=== PATIENT | male | born 1945 | race Caucasian/White ===

== ENCOUNTER 2017-04-18 14:58 | Emergency (ER) | payer MEDICARE, BC ==
--- NOTE | 2017-04-18 15:44 | EDM.PDOC ---
ED HPI GENERAL MEDICAL PROBLEM - General Chief Complaint: Fever Stated Complaint: FEVER Time Seen by Provider: 04/18/17 15:37 Source of Information: Reports: Patient History Limitations: Reports: No Limitations - History of Present Illness INITIAL COMMENTS - FREE TEXT/NARRATIVE: PT UNDERWENT CHEMO 2 WEEKS AGO AND HAS BEEN FEELING VERY TIRED SINCE. TOOK TEMP TODAY AND THOUGHT IT WAS 101. CALLED ONCOLOGIST AND RECOMMENDED THEY PRESENT TO ER. DENIES CP, SOB, COUGH, N/V/D, OR MARTINEZ. PT WAS AFEBRILE UPON PRESENTATION AND NO ANTIPYRETIC MEDICATION WAS GIVEN AT HOME. Onset: Today Severity: Mild Improves with: Reports: None Worsens with: Reports: None Associated Symptoms: Reports: Diaphoresis, Malaise - Related Data Allergies Allergy/AdvReac Type Severity Reaction Status Date / Time cefazolin Allergy Rash Verified 04/18/17 15:21 Home Meds: Home Meds Aspirin 81 mg PO DAILY 04/18/17 [History] Enoxaparin [Lovenox] 40 mg SUBCUT DAILY 04/18/17 [History] Omeprazole 20 mg PO DAILY 04/18/17 [History] Ondansetron [Zofran Odt] 8 mg PO Q8H PRN 04/18/17 [History] Prochlorperazine Maleate [Compazine] 10 mg PO Q4H PRN 04/18/17 [History] Sennosides/Docusate Sodium [Senna-S] 1 tab PO BID PRN 04/18/17 [History] Simvastatin [Zocor] 20 mg PO DAILY 04/18/17 [History] Venlafaxine [Effexor XR] 150 mg PO DAILY 04/18/17 [History] predniSONE [Prednisone] 100 mg PO ASDIRECTED 04/18/17 [History] Past Medical History HEENT History: Reports: Impaired Vision Cardiovascular History: Reports: High Cholesterol Gastrointestinal History: Reports: None Endocrine/Metabolic History: Reports: Obesity/BMI 30+ Immunologic History: Reports: Immunosuppression Oncologic (Cancer) History: Reports: Non-Hodgkin's Lymphoma Other Oncologic History: mantle cell lymphoma - Past Surgical History HEENT Surgical History: Reports: None Cardiovascular Surgical History: Reports: None GI Surgical History: Reports: Appendectomy, Cholecystectomy Endocrine Surgical History: Reports: None Oncologic Surgical History: Reports: None Social & Family History - Tobacco Use Smoking Status *Q: Former Smoker Years of Tobacco use: 15 Packs/Tins Daily: 1 Used Tobacco, but Quit: Yes Month Tobacco Last Used: 10 - Recreational Drug Use Recreational Drug Use: No ED ROS GENERAL - Review of Systems Review Of Systems: ROS reveals no pertinent complaints other than HPI. Constitutional: Reports: Malaise, Diaphoresis HEENT: Reports: No Symptoms Respiratory: Reports: No Symptoms Cardiovascular: Reports: No Symptoms Endocrine: Reports: No Symptoms GI/Abdominal: Reports: No Symptoms : Reports: No Symptoms Musculoskeletal: Reports: No Symptoms Skin: Reports: No Symptoms Neurological: Reports: No Symptoms Psychiatric: Reports: No Symptoms Hematologic/Lymphatic: Reports: No Symptoms Immunologic: Reports: No Symptoms ED EXAM, GENERAL - Physical Exam Exam: See Below Exam Limited By: No Limitations General Appearance: Alert, WD/WN, No Apparent Distress Eye Exam: Bilateral Eye: Normal Inspection Nose: Normal Inspection, Normal Mucosa, No Blood Throat/Mouth: Normal Inspection, Normal Oropharynx, No Airway Compromise Head: Atraumatic, Normocephalic Neck: Normal Inspection, Supple Respiratory/Chest: No Respiratory Distress, Lungs Clear, Normal Breath Sounds, No Accessory Muscle Use, Chest Non-Tender Cardiovascular: Regular Rate, Rhythm, No Murmur GI/Abdominal: Normal Bowel Sounds, Soft, Non-Tender Back Exam: Normal Inspection. No: CVA Tenderness (L), CVA Tenderness (R) Extremities: Normal Inspection, No Pedal Edema Neurological: Alert, Oriented, Normal Cognition Psychiatric: Normal Affect Skin Exam: Warm, Dry, Intact, Normal Color, No Rash Lymphatic: Adenopathy (CERVICAL OF CHRONIC NATURE) Course - Vital Signs Last Recorded V/S: Last Vital Signs Temp 97.1 F 04/18/17 15:15 Pulse 103 H 04/18/17 15:15 Resp 20 04/18/17 15:15 BP 130/84 04/18/17 15:15 Pulse Ox 94 L 04/18/17 15:15 - Orders/Labs/Meds Orders: Active Orders 24 hr Category Date Time Status CBC WITH AUTO DIFF [HEME] Stat Lab 04/18/17 15:37 Ordered COMPREHENSIVE METABOLIC PN,CMP [CHEM] Stat Lab 04/18/17 15:37 Ordered INR,PT,PROTHROMBIN TIME [COAG] Stat Lab 04/18/17 15:37 Ordered PTT,PARTIAL THROMBOPLSTIN TIME [COAG] Stat Lab 04/18/17 15:37 Ordered UA W/MICROSCOPIC [URIN] Stat Lab 04/18/17 15:37 Uncollected - Re-Assessments/Exams Free Text/Narrative Re-Assessment/Exam: 04/18/17 16:42 PT AFEBRILE, NONTOXIC APPEARING, VSS, FEELS BETTER, AT BEDSIDE. WILL HAVE HIM F/U WITH DR DOW IN 2-3 DAYS Departure - Departure Time of Disposition: 16:43 Disposition: Home, Self-Care 01 Condition: Good Clinical Impression: Hyperglycemia, Weakness generalized - Discharge Information Instructions: Weakness, [id number], Hyperglycemia, [id number], Fever, Adult , [id number] Referrals: Renzo Golden MD [Primary Care Provider] - Kristine Mike MD [Physician] - Forms: ED Department Discharge Additional Instructions: FOLLOW UP WITH DR DOW IN 2-3 DAYS. RETURN TO ER SOONER IF SYMPTOMS CONTINUE - My Orders Last 24 Hours: My Active Orders 04/18/17 15:37 CBC WITH AUTO DIFF [HEME] Stat COMPREHENSIVE METABOLIC PN,CMP [CHEM] Stat INR,PT,PROTHROMBIN TIME [COAG] Stat PTT,PARTIAL THROMBOPLSTIN TIME [COAG] Stat UA W/MICROSCOPIC [URIN] Stat - Assessment/Plan Last 24 Hours: My Active Orders 04/18/17 15:37 CBC WITH AUTO DIFF [HEME] Stat COMPREHENSIVE METABOLIC PN,CMP [CHEM] Stat INR,PT,PROTHROMBIN TIME [COAG] Stat PTT,PARTIAL THROMBOPLSTIN TIME [COAG] Stat UA W/MICROSCOPIC [URIN] Stat Assessment:: WEAKNESS Plan: F/U WITH DR DOW IN 2-3 DAYS
[2017-04-18 16:08] VITALS: BP 118/78
[2017-04-18 16:27] LABS: CHLORIDE,CL 102 mmol/L (98-115); SODIUM,NA 136 mmol/L (136-145)
== END 2017-04-18 16:40 | disposition home or self-care (01) ==
LOC: KA.ED 14:58
DX: R73.9 Hyperglycemia, unspecified (principal); R53.1 Weakness; Z79.899 Other long term (current) drug therapy; H54.7 Unspecified visual loss; E78.00 Pure hypercholesterolemia, unspecified; E66.9 Obesity, unspecified; Z88.8 Allergy status to other drugs, medicaments and biological substances; Z90.49 Acquired absence of other specified parts of digestive tract; Z87.891 Personal history of nicotine dependence
CPT/HCPCS: 36415; 80053; 81001; 85025; 85610; 85730; 99282; 99284

== ENCOUNTER 2017-05-14 03:26 | Inpatient (IN) | payer MEDICARE, BC ==
[2017-05-14] MEDS ORDERED: Acetaminophen 500 MG Tab PO ONE (03:29)
[2017-05-14] MEDS: Acetaminophen 500 MG Tab ONE ×2 (03:30→06:50)
--- NOTE | 2017-05-14 04:12 | EDM.PDOC ---
Addendum entered and electronically signed by Lauro Castellanos PA 05/14/17 06:32 : Please use ER note as admission H and P Original Note: ED HPI GENERAL MEDICAL PROBLEM - General Chief Complaint: Fever Stated Complaint: fever Time Seen by Provider: 05/14/17 03:45 Source of Information: Reports: Patient History Limitations: Reports: No Limitations - History of Present Illness INITIAL COMMENTS - FREE TEXT/NARRATIVE: 72 YO WM with PMH of nonhodgkins lymphoma on chemotherapy presents to ER with fever/chills which began this am. Pt reports he had his chemotherapy 1 week ago and had tolerated it well. Pt denies any productive cough, denies shortness of breath or chest pain, denies abdominal pain or dysuria or urinary frequency. Onset: Today Onset Date: 05/14/17 Onset Time: 02:00 Location: Reports: Generalized Severity: Mild Improves with: Reports: None Worsens with: Reports: None Context: Denies: Sick Contact Associated Symptoms: Reports: Fever/Chills, Malaise. Denies: Chest Pain, Cough , cough w sputum, Diaphoresis, Nausea/Vomiting, Rash, Seizure, Shortness of Breath, Syncope, Weakness - Related Data Allergies Allergy/AdvReac Type Severity Reaction Status Date / Time cefazolin Allergy Rash Verified 05/14/17 04:34 bednamustine Allergy Rash Uncoded 05/14/17 04:34 Home Meds: Home Meds Aspirin 81 mg PO DAILY 04/18/17 [History] Enoxaparin [Lovenox] 40 mg SUBCUT DAILY 04/18/17 [History] Omeprazole 20 mg PO DAILY 04/18/17 [History] Ondansetron [Zofran Odt] 8 mg PO Q8H PRN 04/18/17 [History] Prochlorperazine Maleate [Compazine] 10 mg PO Q4H PRN 04/18/17 [History] Sennosides/Docusate Sodium [Senna-S] 1 tab PO BID PRN 04/18/17 [History] Simvastatin [Zocor] 20 mg PO DAILY 04/18/17 [History] Venlafaxine [Effexor XR] 150 mg PO DAILY 04/18/17 [History] predniSONE [Prednisone] 100 mg PO ASDIRECTED 04/18/17 [History] Past Medical History HEENT History: Reports: Impaired Vision Cardiovascular History: Reports: High Cholesterol Gastrointestinal History: Reports: None Endocrine/Metabolic History: Reports: Obesity/BMI 30+ Immunologic History: Reports: Immunosuppression Oncologic (Cancer) History: Reports: Non-Hodgkin's Lymphoma Other Oncologic History: mantle cell lymphoma - Past Surgical History HEENT Surgical History: Reports: None Cardiovascular Surgical History: Reports: None GI Surgical History: Reports: Appendectomy, Cholecystectomy Endocrine Surgical History: Reports: None Oncologic Surgical History: Reports: None Social & Family History - Tobacco Use Smoking Status *Q: Former Smoker Years of Tobacco use: 15 Packs/Tins Daily: 1 Used Tobacco, but Quit: Yes Month Tobacco Last Used: 10 - Caffeine Use Caffeine Use: Reports: Soda Other Caffeine Use: diet and regular - Recreational Drug Use Recreational Drug Use: No ED ROS GENERAL - Review of Systems Review Of Systems: See Below Constitutional: Reports: Fever, Chills HEENT: Reports: No Symptoms Respiratory: Reports: No Symptoms Cardiovascular: Reports: No Symptoms Endocrine: Reports: No Symptoms GI/Abdominal: Reports: No Symptoms : Reports: No Symptoms Musculoskeletal: Reports: No Symptoms Skin: Reports: No Symptoms Neurological: Reports: No Symptoms Psychiatric: Reports: No Symptoms Hematologic/Lymphatic: Reports: No Symptoms Immunologic: Reports: No Symptoms ED EXAM, SEPSIS - Physical Exam Exam: See Below Exam Limited By: No Limitations General Appearance: Alert, WD/WN, No Apparent Distress Ears: Normal External Exam, Normal Canal, Hearing Grossly Normal, Normal TMs Nose: Normal Inspection, Normal Mucosa, No Blood Throat/Mouth: Normal Inspection, Normal Lips, Normal Teeth, Normal Gums, Normal Oropharynx, Normal Voice, No Airway Compromise Head: Atraumatic, Normocephalic Neck: Normal Inspection, Supple, Non-Tender, Full Range of Motion Respiratory/Chest: No Respiratory Distress, Lungs Clear, Normal Breath Sounds, No Accessory Muscle Use, Chest Non-Tender Cardiovascular: Normal Peripheral Pulses, Regular Rate, Rhythm, No Edema, No Gallop, No JVD, No Murmur, No Rub GI/Abdominal Exam: Normal Bowel Sounds, Soft, Non-Tender, No Organomegaly, No Distention, No Abnormal Bruit, No Mass, Pelvis Stable Back: Normal Inspection, Full Range of Motion, NT Extremities: Normal Inspection, Normal Range of Motion, Non-Tender, No Pedal Edema, Normal Capillary Refill Neurological: Alert, Oriented, CN II-XII Intact, Normal Cognition, Normal Gait, Normal Reflexes, No Motor/Sensory Deficits Psychiatric: Normal Affect, Normal Mood Skin: Warm, Dry, Intact, Normal Color, No Rash Lymphatic: Bilateral: No Adenopathy Course - Vital Signs Last Recorded V/S: Last Vital Signs Temp 39.3 C H 05/14/17 04:09 Pulse 104 H 05/14/17 04:09 Resp 20 05/14/17 04:09 BP 149/80 H 05/14/17 04:09 Pulse Ox 99 05/14/17 04:09 - Orders/Labs/Meds Orders: Active Orders 24 hr Category Date Time Status Chest 2V [CR] Stat Exams 05/14/17 Ordered CULTURE BLOOD [BC] Stat Lab 05/14/17 04:01 Ordered CULTURE BLOOD [BC] Stat Lab 05/14/17 04:01 Ordered CULTURE URINE [RM] Stat Lab 05/14/17 04:00 Uncollected LACTIC ACID [CHEM] Stat Lab 05/14/17 04:46 Ordered Piperacillin/Tazobactam [Zosyn] 4.5 gm Med 05/14/17 05:00 Ordered Sodium Chloride 0.9% [Normal Saline] 100 ml IV Q6H Sodium Chloride 0.9% @ 999 MLS/HR (1000ml) Med 05/14/17 05:00 Ordered Sodium Chloride 0.9% [Normal Saline] 1,000 ml IV .BOLUS Vancomycin 1 gm Med 05/14/17 05:00 Ordered Sodium Chloride 0.9% [Normal Saline] 250 ml IV Q24H Blood Culture x2 Reflex Set [OM.PC] Stat Oth 05/14/17 04:00 Ordered Medication Orders Piperacillin Sod/Tazobactam (Sod 4.5 gm/ Sodium Chloride) 100 mls @ 200 mls/hr IV Q6H GIFTY Sodium Chloride (Normal Saline) 1,000 mls @ 999 mls/hr IV .BOLUS ONE Stop: 05/14/17 06:00 Vancomycin HCl 1 gm/ Sodium (Chloride) 250 mls @ 167 mls/hr IV Q24H GIFTY Labs: Laboratory Tests 05/14/17 05/14/17 05/14/17 Range/Units 03:45 03:45 04:15 WBC 1.1 L* (5.0-10.0) 10^3/uL RBC 3.14 L (4.50-6.00) 10^6/uL Hgb 10.1 L (13.0-17.0) g/dL Hct 29.6 L (40.0-52.0) % MCV 94.5 H (82.0-92.0) fL MCH 32.3 H (27.0-31.0) pg MCHC 34.2 (32.0-36.0) g/dL RDW 14.3 (11.5-14.5) % Plt Count 86 L (150-300) 10^3/uL MPV 8.4 (7.4-10.4) fL Neut % (Auto) 18.8 L (50.0-70.0) % Lymph % (Auto) 55.1 H (20.0-40.0) % [place] % (Auto) 8.1 H (2.0-8.0) % Eos % (Auto) 16.1 H (1.0-3.0) % Baso % (Auto) 1.9 H (0.0-1.0) % Neut # (Auto) 0.2 L (2.5-7.0) 10^3/uL Lymph # (Auto) 0.6 L (1.0-4.0) 10^3/uL [place] # (Auto) 0.1 (0.1-0.8) 10^3/uL Eos # (Auto) 0.2 (0.1-0.3) 10^3/uL Baso # (Auto) 0.0 (0.0-0.1) 10^3/uL Sodium 137 (136-145) mmol/L Potassium 3.5 (3.3-5.3) mmol/L Chloride 101 (98-115) mmol/L Carbon Dioxide 29.4 (21.0-32.0) mmol/L BUN 13 (6-25) mg/dL Creatinine 0.81 (0.51-1.17) mg/dL Est Cr Clr Drug Dosing 87.62 mL/min Estimated GFR (MDRD) > 60 mL/min Glucose 98 (70-110) mg/dL Calcium 8.1 L (8.7-10.3) mg/dL Total Bilirubin 1.1 H (0.2-1.0) mg/dL AST 18 (15-37) U/L ALT 41 (12-78) U/L Alkaline Phosphatase 98 (46-116) IU/L Total Protein 6.0 L (6.4-8.2) g/dL Albumin 3.06 (3.00-4.80) g/dL Lipase 86 (73-393) U/L Specimen Type Urincc Urine Color Yellow (YELLOW) Urine Appearance Clear (CLEAR) Urine pH 6.0 (5.0-9.0) Ur Specific [place] 1.015 (1.005-1.030) Urine Protein Negative (NEGATIVE) mg/dL Urine Glucose (UA) Negative (NEGATIVE) mg/dL Urine Ketones Negative (NEGATIVE) mg/dL Urine Occult Blood Negative (NEGATIVE) Urine Nitrite Negative (NEGATIVE) Urine Bilirubin Negative (NEGATIVE) Urine Urobilinogen 0.2 (0.2-1.0) E.U./dL Ur Leukocyte Esterase Negative (NEGATIVE) Urine RBC Not seen /HPF Urine WBC 0-5 /HPF Ur Epithelial Cells Rare /LPF Urine Bacteria Not seen (NONE TO FEW) /HPF Meds: Medications Generic Name Dose Route Start Last Admin Trade Name Freq PRN Reason Stop Dose Admin Piperacillin Sod/Tazobactam 100 mls @ 200 mls/hr 05/14/17 05:00 Sod 4.5 gm/ Sodium Chloride IV Q6H GIFTY Sodium Chloride 1,000 mls @ 999 mls/hr 05/14/17 05:00 Normal Saline IV 05/14/17 06:00 .BOLUS ONE Vancomycin HCl 1 gm/ Sodium 250 mls @ 167 mls/hr 05/14/17 05:00 Chloride IV Q24H GIFTY Discontinued Medications Generic Name Dose Route Start Last Admin Trade Name Freq PRN Reason Stop Dose Admin Acetaminophen Confirm 05/14/17 03:29 Tylenol Extra Strength Administered 05/14/17 03:30 Dose 1,000 mg .ROUTE .STK-MED ONE Ibuprofen 600 mg 05/14/17 05:01 Motrin PO 05/14/17 05:02 ONETIME ONE - Radiology Interpretation Free Text/Narrative:: CXR- NAD Departure - Departure Time of Disposition: 05:04 Disposition: Admitted As Inpatient 68 Condition: Fair Clinical Impression: Fever Qualifiers: Fever type: unspecified Qualified Code(s): R50.9 - Fever, unspecified Neutropenia Qualifiers: Neutropenia type: unspecified Qualified Code(s): D70.9 - Neutropenia, unspecified Lymphoma Qualifiers: Lymphoma type: non-Hodgkin - Discharge Information Forms: ED Department Discharge - My Orders Last 24 Hours: My Active Orders 05/14/17 Chest 2V [CR] Stat 05/14/17 04:00 CULTURE URINE [RM] Stat Blood Culture x2 Reflex Set [OM.PC] Stat 05/14/17 04:01 CULTURE BLOOD [BC] Stat CULTURE BLOOD [BC] Stat 05/14/17 04:46 LACTIC ACID [CHEM] Stat 05/14/17 05:00 Piperacillin/Tazobactam [Zosyn] 4.5 gm Sodium Chloride 0.9% [Normal Saline] 100 ml IV Q6H Sodium Chloride 0.9% @ 999 MLS/HR (1000ml) Sodium Chloride 0.9% [Normal Saline] 1,000 ml IV .BOLUS Vancomycin 1 gm Sodium Chloride 0.9% [Normal Saline] 250 ml IV Q24H - Assessment/Plan Last 24 Hours: My Active Orders 05/14/17 Chest 2V [CR] Stat 05/14/17 04:00 CULTURE URINE [RM] Stat Blood Culture x2 Reflex Set [OM.PC] Stat 05/14/17 04:01 CULTURE BLOOD [BC] Stat CULTURE BLOOD [BC] Stat 05/14/17 04:46 LACTIC ACID [CHEM] Stat 05/14/17 05:00 Piperacillin/Tazobactam [Zosyn] 4.5 gm Sodium Chloride 0.9% [Normal Saline] 100 ml IV Q6H Sodium Chloride 0.9% @ 999 MLS/HR (1000ml) Sodium Chloride 0.9% [Normal Saline] 1,000 ml IV .BOLUS Vancomycin 1 gm Sodium Chloride 0.9% [Normal Saline] 250 ml IV Q24H Assessment:: 1. nonhodgkins lymphoma 2. fever 3. neutropenia Plan: 1. admit to medicine- Kristine Rajan 2. zosyn/vanco 3. tylenol for fever 4. supportive care
[2017-05-14 04:47] LABS: CHLORIDE,CL 101 mmol/L (98-115); SODIUM,NA 137 mmol/L (136-145)
[2017-05-14] MEDS ORDERED: Piperacillin/Tazobactam 4.5 GM in Sodium Chloride 0.9% 100 ML IV SCH ×2 (05:00→09:00)
[2017-05-14] MEDS ORDERED: Sodium Chloride 0.9% 1,000 ML IV ONE (05:00)
[2017-05-14] MEDS ORDERED: Ibuprofen 600 MG Tab PO ONE (05:01)
[2017-05-14] MEDS ORDERED: Sodium Chloride 0.9% 1,000 ML ONE (05:02)
[2017-05-14] MEDS ORDERED: Sodium Chloride 0.9% 5 ML Syringe FLUSH PRN (05:07)
[2017-05-14] MEDS ORDERED: Acetaminophen 325 MG Tab PO PRN (05:07)
[2017-05-14] MEDS ORDERED: Ibuprofen 200 MG Tab ONE (05:07)
[2017-05-14] MEDS ORDERED: Sodium Chloride 0.9% 1,000 ML IV SCH (05:15)
[2017-05-14] MEDS: Sodium Chloride 0.9% 1,000 ML IV SCH ×2 (05:30→20:09)
[2017-05-14] MEDS ORDERED: Prochlorperazine 5 MG Tab PO PRN (09:53)
[2017-05-14] MEDS ORDERED: Ondansetron 4 MG Tab.DIS PO PRN (09:53)
[2017-05-14] MEDS ORDERED: oxyCODONE 5 MG Tab PO PRN (10:30)
[2017-05-14] MEDS ORDERED: Enoxaparin 40 MG/0.4 ML Syringe SUBCUT SCH (10:30)
[2017-05-14] MEDS: Aspirin 81 MG Tab.EC PO SCH (10:52)
[2017-05-14] MEDS: Cetirizine 10 MG Tab PO SCH (10:53)
[2017-05-14] MEDS: Venlafaxine 150 MG Cap.ER PO SCH (10:53)
[2017-05-14] MEDS: Omeprazole 20 MG Cap.CR PO SCH (10:53)
[2017-05-14] MEDS: [UNRECOGNIZED DRUG - OTHER] PO SCH ×4 (10:54→21:06)
[2017-05-14] MEDS ORDERED: Vancomycin 0.5 GM in Sodium Chloride 0.9% 100 ML IV ONE (11:00)
[2017-05-14] MEDS: predniSONE 20 MG Tab PO SCH (12:06)
--- NOTE | 2017-05-14 13:09 | PN ---
05/14/2017 PATIENT NAME: PATRIZIASURYA This is a 72-year-old male, who came into the emergency room very early this morning after developing a fever around midnight last night. He has a history of non-Hodgkin lymphoma and received chemotherapy approximately one week ago. He received his chemotherapy at the [facility]. He had a phone call from [place] yesterday saying that his white count was 4.4. He developed chills and a fever of 102.3. The chemo cycle he received was Rituxan, cyclophosphamide, and doxorubicin. He was also given Neulasta. He was instructed to go to the emergency room if he developed a neutropenic fever. He was found to have a white count of 1.1. Neutropenic workup was performed including blood cultures x2, urine culture, as well as a chest x-ray. Chest x-ray shows no acute process. He is on vancomycin as well as Zosyn. He received a loading dose of 4.5 g of Zosyn, and this has been changed to 3.375. I spoke with [facility]. The patient is cared for by Dr. Pope. I spoke with his physician employee relations assistant. I notified her of the patient's admission and a discussion was held regarding suggestions for care. She did not recommend any further Neulasta. She recommended the patient stay in the hospital until he was afebrile 48 hours. She agreed with the Zosyn and vancomycin. I encouraged her to call back if she had any recommendations for further treatment. In addition to the white count being 1.1, RBCs were 3.14, hemoglobin 10.1, hematocrit 29.6, platelet count was 86,000. Chemistry profile showed a sodium of 137, potassium 3.5, chloride 101, BUN and creatinine are 13 and 0.81 with a GFR greater than 60. Calcium, total protein, and albumin were low. UA was negative. PHYSICAL EXAMINATION: VITAL SIGNS: Temperature was 98.7, pulse 72, respirations 20, blood pressure 106/53, and O2 saturation is 96% on room air. SKIN: Warm and dry to touch. CARDIAC: Reveals S1, S2 to be normal. Rate and rhythm are regular. No murmur, click, or gallop is auscultated. LUNGS: Clear without rales, wheezes, or rhonchi. 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 ABDOMEN: Soft, obese, nontender. Bowel sounds present in all four quadrants. There is no pedal edema. IMPRESSION: Neutropenic fever in a patient with non-Hodgkin lymphoma, status post chemotherapy one week ago. Agents outlined in the beginning of the note. He will continue on vancomycin as well as the Zosyn. The Zosyn dose was adjusted. It was originally ordered at 4.5 g every six hours, this was changed to 3.375 g every six hours. Vancomycin will be dosed by Pharmacy. He will be kept in the hospital until he is afebrile for 48 hours. I have spoken via telephone with the physician employee relations assistant who works with the patient's oncologist, Dr. Pope. She agreed with the plan of care and had no further suggestions. Full neutropenic workup has been performed including blood cultures x2, urine culture, as well as chest x-ray. CBC and basic metabolic panel will be drawn for morning. I have discussed my findings with Dr. Kristine Mike, who concurs with my findings. /[id number]/[id number]
[2017-05-14] MEDS: Piperacillin/Tazobactam/Dext 50 ML IV SCH ×2 (14:29→22:47)
[2017-05-14] MEDS ORDERED: diphenhydrAMINE 25 MG Cap PO PRN (21:00)
[2017-05-14] MEDS: Simvastatin 10 MG Tab PO SCH (21:05)
[2017-05-14] MEDS: Enoxaparin 40 MG/0.4 ML Syringe SUBCUT SCH (21:06)
[2017-05-15] MEDS: Piperacillin/Tazobactam/Dext 50 ML IV SCH ×4 (03:15→23:21)
[2017-05-15] MEDS: Omeprazole 20 MG Cap.CR PO SCH (06:12)
[2017-05-15 08:13] LABS: CHLORIDE,CL 106 mmol/L (98-115); SODIUM,NA 141 mmol/L (136-145)
--- NOTE | 2017-05-15 09:04 | PCM.PN ---
- General Info Date of Service: 05/15/17 Admission Dx/Problem (Free Text): Fever with chemotherapy induced neutropenia. - Review of Systems Systems Review Comment:: Jadiel is seen today on inpatient rounds. He states he is feeling better than yesterday but still feeling pretty weak. 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 Tomorrow at 9AM he will be fever free for 48 hours. Blood and urine cultures are still pending. He has not had a fever in 24 hours. He is on vancomycin and zosyn. No diarrhea. No other ill symptoms. He did receive Neulasta. WBC and ANC are unchanged from yesterday at 1.1 and 0.2 respectively. - Patient Data Vitals - most recent: Last Vital Signs Temp 98.8 F 05/15/17 06:37 Pulse 68 05/15/17 06:37 Resp 20 05/15/17 06:37 BP 119/72 05/15/17 06:37 Pulse Ox 97 05/15/17 06:37 Weight - most recent: 288 lb 2 oz I&O - last 24 hours: Intake & Output 05/14/17 05/15/17 05/15/17 22:59 06:59 14:59 Intake Total 1546 372 Output Total 525 1400 Balance 1021 -1028 Lab Results last 24 hrs: Laboratory Results - last 24 hr 05/15/17 05/15/17 Range/Units 07:18 07:18 WBC 1.1 L* (5.0-10.0) 10^3/uL RBC 3.11 L (4.50-6.00) 10^6/uL Hgb 9.9 L (13.0-17.0) g/dL Hct 29.5 L (40.0-52.0) % MCV 94.7 H (82.0-92.0) fL MCH 31.8 H (27.0-31.0) pg MCHC 33.6 (32.0-36.0) g/dL RDW 14.3 (11.5-14.5) % Plt Count 75 L (150-300) 10^3/uL MPV 8.3 (7.4-10.4) fL Neut % (Auto) 21.1 L (50.0-70.0) % Lymph % (Auto) 46.5 H (20.0-40.0) % [place] % (Auto) 16.6 H (2.0-8.0) % Eos % (Auto) 14.2 H (1.0-3.0) % Baso % (Auto) 1.6 H (0.0-1.0) % Neut # (Auto) 0.2 L (2.5-7.0) 10^3/uL Lymph # (Auto) 0.5 L (1.0-4.0) 10^3/uL [place] # (Auto) 0.2 (0.1-0.8) 10^3/uL Eos # (Auto) 0.2 (0.1-0.3) 10^3/uL Baso # (Auto) 0.0 (0.0-0.1) 10^3/uL Sodium 141 (136-145) mmol/L Potassium 3.5 (3.3-5.3) mmol/L Chloride 106 (98-115) mmol/L Carbon Dioxide 30.3 (21.0-32.0) mmol/L BUN 10 (6-25) mg/dL Creatinine 0.82 (0.51-1.17) mg/dL Est Cr Clr Drug Dosing 86.55 mL/min Estimated GFR (MDRD) > 60 mL/min Glucose 105 (70-110) mg/dL Calcium 8.2 L (8.7-10.3) mg/dL Med Orders - Current: Current Medications Acetaminophen (Tylenol) 650 mg PO Q4H PRN PRN Reason: Pain (Mild 1-3)/fever Aspirin (Halfprin) 81 mg PO BRK [facility] Last Admin: 05/14/17 10:52 Dose: 81 mg Cetirizine HCl (Zyrtec) 10 mg PO DAILY [facility] Last Admin: 05/14/17 10:53 Dose: 10 mg Diphenhydramine HCl (Benadryl) 50 mg PO BEDTIME PRN PRN Reason: Sleep Enoxaparin Sodium (Lovenox) 40 mg SUBCUT BEDTIME [facility] Last Admin: 05/14/17 21:06 Dose: 40 mg Piperacillin/Tazobactam/Dextrose (Zosyn In Dextrose Iso-Osmotic 3.375 Gm) 50 mls @ 100 mls/hr IV Q6H [facility] Last Admin: 05/15/17 03:15 Dose: 100 mls/hr Vancomycin HCl 1.5 gm/ Sodium (Chloride) 280 mls @ 112 mls/hr IV Q12H [facility] Last Admin: 05/15/17 07:40 Dose: 112 mls/hr Sodium Chloride (Normal Saline) 1,000 mls @ 30 mls/hr IV DAILY@1999 [facility] Last Admin: 05/14/17 20:09 Dose: 30 mls/hr Omeprazole (Omeprazole) 20 mg PO ACBREAKFAST [facility] Last Admin: 05/15/17 06:12 Dose: 20 mg Ondansetron HCl (Zofran Odt) 8 mg PO TID PRN PRN Reason: nausea and vomiting Oxycodone HCl (Oxycodone) 10 mg PO Q4H PRN PRN Reason: Pain Ptom Stomatitis (Mouthwash) 1 each PO QID [facility] Last Admin: 05/14/17 21:06 Dose: 1 each Prednisone (Prednisone) 30 mg PO WITHBREAKFAST [facility] Stop: 05/18/17 12:01 Last Admin: 05/14/17 12:06 Dose: 30 mg Prednisone (Prednisone) 20 mg PO WITHBREAKFAST [facility] Prochlorperazine Maleate (Compazine) 10 mg PO Q6H PRN PRN Reason: Nausea Senna/Docusate Sodium (Senna Plus) 1 tab PO DAILY [facility] Last Admin: 05/14/17 10:52 Dose: 1 tab Simvastatin (Zocor) 10 mg PO BEDTIME [facility] Last Admin: 05/14/17 21:05 Dose: 10 mg Sodium Chloride (Syrex Flush) 5 ml FLUSH Q8HR PRN PRN Reason: Keep Vein Open Vancomycin HCl (Pharmacy To Dose - Vancomycin) 1 dose .XX ASDIRECTED [facility] Venlafaxine HCl (Effexor Xr) 150 mg PO DAILY [facility] Last Admin: 05/14/17 10:53 Dose: 150 mg Zolpidem Tartrate (Ambien) 10 mg PO BEDTIME PRN PRN Reason: Sleep Discontinued Medications Acetaminophen (Tylenol Extra Strength) Confirm Administered Dose 1,000 mg .ROUTE .STK-MED ONE Stop: 05/14/17 03:30 Last Admin: 05/14/17 06:50 Dose: Not Given Enoxaparin Sodium (Lovenox) 40 mg SUBCUT DAILY [facility] Last Admin: 05/14/17 10:55 Dose: Not Given Piperacillin Sod/Tazobactam (Sod 4.5 gm/ Sodium Chloride) 100 mls @ 200 mls/hr IV Q6H [facility] Last Admin: 05/14/17 09:09 Dose: Not Given Sodium Chloride (Normal Saline) 1,000 mls @ 999 mls/hr IV .BOLUS ONE Stop: 05/14/17 06:00 Last Admin: 05/14/17 05:00 Dose: 999 mls/hr Vancomycin HCl 1 gm/ Sodium (Chloride) 250 mls @ 167 mls/hr IV Q24H [facility] Last Admin: 05/14/17 06:03 Dose: 167 mls/hr Sodium Chloride (Normal Saline) Confirm Administered Dose 1,000 mls @ as directed .ROUTE .STK-MED ONE Stop: 05/14/17 05:03 Last Admin: 05/14/17 05:52 Dose: Not Given Sodium Chloride (Normal Saline) 1,000 mls @ 999 mls/hr IV .BOLUS [facility] Vancomycin HCl 1 gm/ Sodium (Chloride) 250 mls @ 167 mls/hr IV Q24H [facility] Last Admin: 05/14/17 06:34 Dose: Not Given Piperacillin Sod/Tazobactam (Sod 4.5 gm/ Sodium Chloride) 100 mls @ 200 mls/hr IV Q6H [facility] Last Admin: 05/14/17 09:07 Dose: 200 mls/hr Vancomycin HCl 0.5 gm/ Sodium (Chloride) 110 mls @ 110 mls/hr IV ONETIME ONE Stop: 05/14/17 11:59 Last Admin: 05/14/17 12:03 Dose: 110 mls/hr Ibuprofen (Motrin) 600 mg PO ONETIME ONE Stop: 05/14/17 05:02 Last Admin: 05/14/17 05:00 Dose: 600 mg Ibuprofen (Motrin) Confirm Administered Dose 600 mg .ROUTE .STK-MED ONE Stop: 05/14/17 05:08 Last Admin: 05/14/17 05:52 Dose: Not Given - Exam General: alert, oriented, cooperative, no acute distress Lungs: Clear to Auscultation (He did have crackles at the left lung base that cleared after I had him cough.), Normal Respiratory Effort Cardiovascular: Regular Rate, Regular Rhythm, No Murmurs GI/Abdominal Exam: Normal Bowel Sounds Extremities: Normal Inspection, No Pedal Edema - Problem List & Annotations (1) Fever SNOMED Code(s): 151040526 Code(s): R50.9 - FEVER, UNSPECIFIED Status: Acute Current Visit: Yes Qualifiers: Fever type: unspecified Qualified Code(s): R50.9 - Fever, unspecified (2) Lymphoma SNOMED Code(s): 616414028 Code(s): C85.90 - NON-HODGKIN LYMPHOMA, UNSPECIFIED, UNSPECIFIED SITE Status: Acute Current Visit: Yes Qualifiers: Lymphoma type: non-Hodgkin (3) Neutropenia SNOMED Code(s): 912741714 Code(s): D70.9 - NEUTROPENIA, UNSPECIFIED Status: Acute Current Visit: Yes Qualifiers: Neutropenia type: unspecified Qualified Code(s): D70.9 - Neutropenia, unspecified - Problem List Review Problem List Initiated/Reviewed/Updated: Yes - My Orders Last 24 Hours: My Active Orders 05/16/17 05:11 BMP [BASIC METABOLIC PANEL,BMP] [CHEM] AM CBC WITH AUTO DIFF [HEME] AM 05/17/17 05:11 BMP [BASIC METABOLIC PANEL,BMP] [CHEM] AM CBC WITH AUTO DIFF [HEME] AM 05/18/17 05:11 BMP [BASIC METABOLIC PANEL,BMP] [CHEM] AM CBC WITH AUTO DIFF [HEME] AM 05/19/17 05:11 BMP [BASIC METABOLIC PANEL,BMP] [CHEM] AM CBC WITH AUTO DIFF [HEME] AM 05/20/17 05:11 BMP [BASIC METABOLIC PANEL,BMP] [CHEM] AM CBC WITH AUTO DIFF [HEME] AM - Plan Plan:: Per oncology, needs to be fever free for 48 hours prior to discharge. I would also like to see his ANC and neutrophil count improving before sending him home. I will also need to have culture results available prior to sending him home. He is very anxious to be discharged. No change in his plan of care for today.
[2017-05-15] MEDS: Aspirin 81 MG Tab.EC PO SCH (09:08)
[2017-05-15] MEDS: predniSONE 20 MG Tab PO SCH (09:09)
[2017-05-15] MEDS: Venlafaxine 150 MG Cap.ER PO SCH (09:09)
[2017-05-15] MEDS: Cetirizine 10 MG Tab PO SCH (09:10)
[2017-05-15] MEDS: [UNRECOGNIZED DRUG - OTHER] PO SCH ×4 (09:20→21:04)
[2017-05-15] MEDS: Enoxaparin 40 MG/0.4 ML Syringe SUBCUT SCH (21:01)
[2017-05-15] MEDS: Simvastatin 10 MG Tab PO SCH (21:11)
[2017-05-15] MEDS: Zolpidem 5 MG Tab PO PRN (21:11)
[2017-05-15] MEDS: Sodium Chloride 0.9% 1,000 ML IV SCH (22:27)
[2017-05-16] MEDS: Piperacillin/Tazobactam/Dext 50 ML IV SCH ×2 (03:55→10:56)
[2017-05-16] MEDS: Omeprazole 20 MG Cap.CR PO SCH (06:13)
[2017-05-16 07:57] LABS: CHLORIDE,CL 105 mmol/L (98-115); SODIUM,NA 140 mmol/L (136-145)
[2017-05-16] MEDS: predniSONE 20 MG Tab PO SCH (09:35)
[2017-05-16] MEDS: Aspirin 81 MG Tab.EC PO SCH (09:35)
[2017-05-16] MEDS: Venlafaxine 150 MG Cap.ER PO SCH (09:36)
[2017-05-16] MEDS: Levofloxacin 500 MG Tab PO SCH (09:36)
[2017-05-16] MEDS: Cetirizine 10 MG Tab PO SCH (09:37)
[2017-05-16] MEDS: [UNRECOGNIZED DRUG - OTHER] PO SCH ×4 (09:42→20:56)
--- NOTE | 2017-05-16 09:52 | PCM.PN ---
- General Info Date of Service: 05/16/17 Admission Dx/Problem (Free Text): Fever with chemotherapy induced neutropenia. - Review of Systems Systems Review Comment:: Jadiel is seen today on inpatient rounds. He was admitted on 05/14/17 with chemotherapy induced neutropenia with fever. He was started on vancomycin and zosyn, today is day 3 of antibiotics. He is feeling better. WBC improved this morning. He is ready to go home but his oncologist wants him to stay. He has no pain, is moving his bowels and urine OK without diarrhea. No cough, no fevers since admission. Appetite is OK. Yesterday he noted a "lump" in his right groin that was almost black in color on the top. I did see this, looked almost like a small blood blister that was flat and had some induration around it. The area was punctured with an 18 gauge needle and culture taken. No purulent material was aspirated, only blood was found. Culture result pending. Blood cultures negative to date. I spoke to his oncologist at [place] yesterday and he recommended discontinuing vancomycin and zosyn after this mornings dose, starting levofloxacin 750 mg PO daily and keeping him in the hospital through the weekend until his counts start improving. - Patient Data Vitals - most recent: Last Vital Signs Temp 98.0 F 05/16/17 06:58 Pulse 58 L 05/16/17 06:58 Resp 16 05/16/17 06:58 BP 124/73 05/16/17 06:58 Pulse Ox 95 05/16/17 06:58 Weight - most recent: 288 lb 2 oz I&O - last 24 hours: Intake & Output 05/15/17 05/16/17 05/16/17 22:59 06:59 14:59 Intake Total 770 528 Output Total 1350 1300 Balance -580 -772 Lab Results last 24 hrs: Laboratory Results - last 24 hr 05/15/17 05/16/17 05/16/17 Range/Units 19:30 06:55 06:55 WBC 1.7 L* (5.0-10.0) 10^3/uL RBC 3.17 L (4.50-6.00) 10^6/uL Hgb 9.8 L (13.0-17.0) g/dL Hct 29.6 L (40.0-52.0) % MCV 93.6 H (82.0-92.0) fL MCH 30.9 (27.0-31.0) pg MCHC 33.1 (32.0-36.0) g/dL RDW 14.6 H (11.5-14.5) % Plt Count 89 L (150-300) 10^3/uL MPV 8.6 (7.4-10.4) fL Neut % (Auto) 37.5 L (50.0-70.0) % Lymph % (Auto) 37.2 (20.0-40.0) % [place] % (Auto) 18.3 H (2.0-8.0) % Eos % (Auto) 5.9 H (1.0-3.0) % Baso % (Auto) 1.1 H (0.0-1.0) % Neut # (Auto) 0.6 L (2.5-7.0) 10^3/uL Lymph # (Auto) 0.7 L (1.0-4.0) 10^3/uL [place] # (Auto) 0.3 (0.1-0.8) 10^3/uL Eos # (Auto) 0.1 (0.1-0.3) 10^3/uL Baso # (Auto) 0.0 (0.0-0.1) 10^3/uL Sodium 140 (136-145) mmol/L Potassium 3.9 (3.3-5.3) mmol/L Chloride 105 (98-115) mmol/L Carbon Dioxide 30.6 (21.0-32.0) mmol/L BUN 10 (6-25) mg/dL Creatinine 0.84 (0.51-1.17) mg/dL Est Cr Clr Drug Dosing 84.49 mL/min Estimated GFR (MDRD) > 60 mL/min Glucose 102 (70-110) mg/dL Calcium 8.1 L (8.7-10.3) mg/dL Vancomycin Trough 8.5 L (10-20) ug/mL Med Orders - Current: Current Medications Acetaminophen (Tylenol) 650 mg PO Q4H PRN PRN Reason: Pain (Mild 1-3)/fever Aspirin (Halfprin) 81 mg PO BRK [facility] Last Admin: 05/16/17 09:35 Dose: 81 mg Cetirizine HCl (Zyrtec) 10 mg PO DAILY [facility] Last Admin: 05/16/17 09:37 Dose: 10 mg Diphenhydramine HCl (Benadryl) 50 mg PO BEDTIME PRN PRN Reason: Sleep Enoxaparin Sodium (Lovenox) 40 mg SUBCUT BEDTIME [facility] Last Admin: 05/15/17 21:01 Dose: 40 mg Levofloxacin (Levaquin) 750 mg PO DAILY [facility] Last Admin: 05/16/17 09:36 Dose: 750 mg Omeprazole (Omeprazole) 20 mg PO ACBREAKFAST [facility] Last Admin: 05/16/17 06:13 Dose: 20 mg Ondansetron HCl (Zofran Odt) 8 mg PO TID PRN PRN Reason: nausea and vomiting Oxycodone HCl (Oxycodone) 10 mg PO Q4H PRN PRN Reason: Pain Ptom Stomatitis (Mouthwash) 1 each PO QID [facility] Last Admin: 05/16/17 09:42 Dose: 1 each Prednisone (Prednisone) 30 mg PO WITHBREAKFAST [facility] Stop: 05/18/17 12:01 Last Admin: 05/16/17 09:35 Dose: 30 mg Prednisone (Prednisone) 20 mg PO WITHBREAKFAST [facility] Prochlorperazine Maleate (Compazine) 10 mg PO Q6H PRN PRN Reason: Nausea Senna/Docusate Sodium (Senna Plus) 1 tab PO DAILY PRN PRN Reason: constipation Simvastatin (Zocor) 10 mg PO BEDTIME [facility] Last Admin: 05/15/17 21:11 Dose: 10 mg Sodium Chloride (Syrex Flush) 5 ml FLUSH Q8HR PRN PRN Reason: Keep Vein Open Venlafaxine HCl (Effexor Xr) 150 mg PO DAILY [facility] Last Admin: 05/16/17 09:36 Dose: 150 mg Zolpidem Tartrate (Ambien) 10 mg PO BEDTIME PRN PRN Reason: Sleep Last Admin: 05/15/17 21:11 Dose: 10 mg Discontinued Medications Acetaminophen (Tylenol Extra Strength) Confirm Administered Dose 1,000 mg .ROUTE .STK-MED ONE Stop: 05/14/17 03:30 Last Admin: 05/14/17 06:50 Dose: Not Given Acetaminophen (Tylenol Extra Strength) 1,000 mg PO ONETIME ONE Stop: 05/14/17 03:30 Enoxaparin Sodium (Lovenox) 40 mg SUBCUT DAILY [facility] Last Admin: 05/14/17 10:55 Dose: Not Given Piperacillin Sod/Tazobactam (Sod 4.5 gm/ Sodium Chloride) 100 mls @ 200 mls/hr IV Q6H [facility] Last Admin: 05/14/17 09:09 Dose: Not Given Sodium Chloride (Normal Saline) 1,000 mls @ 999 mls/hr IV .BOLUS ONE Stop: 05/14/17 06:00 Last Admin: 05/14/17 05:00 Dose: 999 mls/hr Vancomycin HCl 1 gm/ Sodium (Chloride) 250 mls @ 167 mls/hr IV Q24H [facility] Last Admin: 05/14/17 06:03 Dose: 167 mls/hr Sodium Chloride (Normal Saline) Confirm Administered Dose 1,000 mls @ as directed .ROUTE .STK-MED ONE Stop: 05/14/17 05:03 Last Admin: 05/14/17 05:52 Dose: Not Given Sodium Chloride (Normal Saline) 1,000 mls @ 999 mls/hr IV .BOLUS [facility] Vancomycin HCl 1 gm/ Sodium (Chloride) 250 mls @ 167 mls/hr IV Q24H [facility] Last Admin: 05/14/17 06:34 Dose: Not Given Piperacillin Sod/Tazobactam (Sod 4.5 gm/ Sodium Chloride) 100 mls @ 200 mls/hr IV Q6H [facility] Last Admin: 05/14/17 09:07 Dose: 200 mls/hr Piperacillin/Tazobactam/Dextrose (Zosyn In Dextrose Iso-Osmotic 3.375 Gm) 50 mls @ 100 mls/hr IV Q6H [facility] Stop: 05/16/17 09:01 Last Admin: 05/16/17 03:55 Dose: 100 mls/hr Vancomycin HCl 1.5 gm/ Sodium (Chloride) 280 mls @ 112 mls/hr IV Q12H [facility] Stop: 05/16/17 08:01 Last Admin: 05/16/17 08:17 Dose: 112 mls/hr Vancomycin HCl 0.5 gm/ Sodium (Chloride) 110 mls @ 110 mls/hr IV ONETIME ONE Stop: 05/14/17 11:59 Last Admin: 05/14/17 12:03 Dose: 110 mls/hr Sodium Chloride (Normal Saline) 1,000 mls @ 30 mls/hr IV DAILY@1999 [facility] Stop: 05/16/17 09:31 Last Admin: 05/15/17 22:27 Dose: 30 mls/hr Ibuprofen (Motrin) 600 mg PO ONETIME ONE Stop: 05/14/17 05:02 Last Admin: 05/14/17 05:00 Dose: 600 mg Ibuprofen (Motrin) Confirm Administered Dose 600 mg .ROUTE .STK-MED ONE Stop: 05/14/17 05:08 Last Admin: 05/14/17 05:52 Dose: Not Given Senna/Docusate Sodium (Senna Plus) 1 tab PO DAILY [facility] Last Admin: 05/15/17 09:10 Dose: Not Given Vancomycin HCl (Pharmacy To Dose - Vancomycin) 1 dose .XX ASDIRECTED [facility] - Exam General: alert, oriented, cooperative, no acute distress Lungs: Clear to Auscultation, Normal Respiratory Effort Cardiovascular: Regular Rate, Regular Rhythm, No Murmurs GI/Abdominal Exam: Normal Bowel Sounds Skin: other (Area in right groin is OK. Less indurated today than yesterday.) - Problem List & Annotations (1) Fever SNOMED Code(s): 621593168 Code(s): R50.9 - FEVER, UNSPECIFIED Status: Acute Current Visit: Yes Qualifiers: Fever type: unspecified Qualified Code(s): R50.9 - Fever, unspecified (2) Lymphoma SNOMED Code(s): 930321958 Code(s): C85.90 - NON-HODGKIN LYMPHOMA, UNSPECIFIED, UNSPECIFIED SITE Status: Acute Current Visit: Yes Qualifiers: Lymphoma type: non-Hodgkin (3) Neutropenia SNOMED Code(s): 150519879 Code(s): D70.9 - NEUTROPENIA, UNSPECIFIED Status: Acute Current Visit: Yes Qualifiers: Neutropenia type: unspecified Qualified Code(s): D70.9 - Neutropenia, unspecified - Problem List Review Problem List Initiated/Reviewed/Updated: Yes - My Orders Last 24 Hours: My Active Orders 05/15/17 15:15 CULTURE WOUND + SMEAR [RM] Routine 05/16/17 09:00 Levofloxacin [Levaquin] 750 mg PO DAILY 05/17/17 05:11 BMP [BASIC METABOLIC PANEL,BMP] [CHEM] AM CBC WITH AUTO DIFF [HEME] AM 05/18/17 05:11 BMP [BASIC METABOLIC PANEL,BMP] [CHEM] AM CBC WITH AUTO DIFF [HEME] AM 05/19/17 05:11 BMP [BASIC METABOLIC PANEL,BMP] [CHEM] AM CBC WITH AUTO DIFF [HEME] AM 05/20/17 05:11 BMP [BASIC METABOLIC PANEL,BMP] [CHEM] AM CBC WITH AUTO DIFF [HEME] AM - Plan Plan:: Per his oncologist, I will discontinue vancomycin and zosyn today. Will start levofloxacin 750 mg PO daily. Will stop IVF's. He can be up and around with neutropenic precautions. Anticipate discharge Thursday to home if counts continue to improve.
[2017-05-16] MEDS ORDERED: Sodium Chloride 0.9% 20 ML SDV FLUSH PRN (14:34)
[2017-05-16] MEDS ORDERED: Heparin Sodium 100 Units/ML 5 ML MDV FLUSH PRN (14:35)
[2017-05-16] MEDS: Simvastatin 10 MG Tab PO SCH (20:56)
[2017-05-16] MEDS: Enoxaparin 40 MG/0.4 ML Syringe SUBCUT SCH (21:00)
[2017-05-16] MEDS: Zolpidem 5 MG Tab PO PRN (22:21)
[2017-05-17] MEDS: Omeprazole 20 MG Cap.CR PO SCH (06:32)
[2017-05-17 08:04] LABS: CHLORIDE,CL 105 mmol/L (98-115); SODIUM,NA 143 mmol/L (136-145)
[2017-05-17] MEDS: Aspirin 81 MG Tab.EC PO SCH (08:15)
[2017-05-17] MEDS: predniSONE 20 MG Tab PO SCH (08:16)
[2017-05-17] MEDS: Cetirizine 10 MG Tab PO SCH (08:17)
[2017-05-17] MEDS: Venlafaxine 150 MG Cap.ER PO SCH (08:17)
[2017-05-17] MEDS: [UNRECOGNIZED DRUG - OTHER] PO SCH ×4 (08:17→20:56)
[2017-05-17] MEDS: Levofloxacin 500 MG Tab PO SCH (08:17)
--- NOTE | 2017-05-17 09:16 | PCM.PN ---
- General Info Admission Dx/Problem (Free Text): Fever with chemotherapy induced neutropenia. Functional Status: Reports: Pain Controlled - Review of Systems General: Reports: No Symptoms HEENT: Reports: No Symptoms Pulmonary: Reports: No Symptoms Cardiovascular: Reports: No Symptoms Gastrointestinal: Reports: No Symptoms Genitourinary: Reports: No Symptoms Musculoskeletal: Reports: No Symptoms Skin: Reports: No Symptoms Neurological: Reports: No Symptoms Psychiatric: Reports: No Symptoms - Patient Data Vitals - most recent: Last Vital Signs Temp 36.1 C 05/17/17 06:48 Pulse 64 05/17/17 06:48 Resp 20 05/17/17 06:48 BP 133/68 05/17/17 06:48 Pulse Ox 97 05/17/17 06:48 Weight - most recent: 130.691 kg I&O - last 24 hours: Intake & Output 05/16/17 05/17/17 05/17/17 22:59 06:59 14:59 Intake Total 320 200 Output Total 1250 1700 Balance -930 -1500 Lab Results last 24 hrs: Laboratory Results - last 24 hr 05/17/17 05/17/17 Range/Units 07:10 07:10 WBC 3.0 L (5.0-10.0) 10^3/uL RBC 3.30 L (4.50-6.00) 10^6/uL Hgb 10.7 L (13.0-17.0) g/dL Hct 31.0 L (40.0-52.0) % MCV 93.8 H (82.0-92.0) fL MCH 32.5 H (27.0-31.0) pg MCHC 34.6 (32.0-36.0) g/dL RDW 14.6 H (11.5-14.5) % Plt Count 87 L (150-300) 10^3/uL MPV 8.8 (7.4-10.4) fL Neut % (Auto) 50.1 (50.0-70.0) % Lymph % (Auto) 30.2 (20.0-40.0) % [place] % (Auto) 16.3 H (2.0-8.0) % Eos % (Auto) 2.3 (1.0-3.0) % Baso % (Auto) 1.1 H (0.0-1.0) % Neut # (Auto) 1.5 L (2.5-7.0) 10^3/uL Lymph # (Auto) 0.9 L (1.0-4.0) 10^3/uL [place] # (Auto) 0.5 (0.1-0.8) 10^3/uL Eos # (Auto) 0.1 (0.1-0.3) 10^3/uL Baso # (Auto) 0.0 (0.0-0.1) 10^3/uL Sodium 143 (136-145) mmol/L Potassium 3.8 (3.3-5.3) mmol/L Chloride 105 (98-115) mmol/L Carbon Dioxide 30.5 (21.0-32.0) mmol/L BUN 12 (6-25) mg/dL Creatinine 0.80 (0.51-1.17) mg/dL Est Cr Clr Drug Dosing 88.72 mL/min Estimated GFR (MDRD) > 60 mL/min Glucose 96 (70-110) mg/dL Calcium 8.4 L (8.7-10.3) mg/dL Med Orders - Current: Current Medications Acetaminophen (Tylenol) 650 mg PO Q4H PRN PRN Reason: Pain (Mild 1-3)/fever Aspirin (Halfprin) 81 mg PO BRK [facility] Last Admin: 05/17/17 08:15 Dose: 81 mg Cetirizine HCl (Zyrtec) 10 mg PO DAILY [facility] Last Admin: 05/17/17 08:17 Dose: 10 mg Diphenhydramine HCl (Benadryl) 50 mg PO BEDTIME PRN PRN Reason: Sleep Enoxaparin Sodium (Lovenox) 40 mg SUBCUT BEDTIME [facility] Last Admin: 05/16/17 21:00 Dose: 40 mg Heparin Sodium (Porcine) (Heparin Lock Flush 100 Units/Ml) 500 unit FLUSH ASDIRECTED PRN PRN Reason: PORT FLUSH Last Admin: 05/16/17 15:16 Dose: 500 unit Levofloxacin (Levaquin) 750 mg PO DAILY [facility] Last Admin: 05/17/17 08:17 Dose: 750 mg Omeprazole (Omeprazole) 20 mg PO ACBREAKFAST [facility] Last Admin: 05/17/17 06:32 Dose: 20 mg Ondansetron HCl (Zofran Odt) 8 mg PO TID PRN PRN Reason: nausea and vomiting Oxycodone HCl (Oxycodone) 10 mg PO Q4H PRN PRN Reason: Pain Ptom Stomatitis (Mouthwash) 1 each PO QID [facility] Last Admin: 05/17/17 08:17 Dose: 1 each Prednisone (Prednisone) 30 mg PO WITHBREAKFAST [facility] Stop: 05/18/17 12:01 Last Admin: 05/17/17 08:16 Dose: 30 mg Prednisone (Prednisone) 20 mg PO WITHBREAKFAST [facility] Prochlorperazine Maleate (Compazine) 10 mg PO Q6H PRN PRN Reason: Nausea Senna/Docusate Sodium (Senna Plus) 1 tab PO DAILY PRN PRN Reason: constipation Simvastatin (Zocor) 10 mg PO BEDTIME [facility] Last Admin: 05/16/17 20:56 Dose: 10 mg Sodium Chloride (Syrex Flush) 5 ml FLUSH Q8HR PRN PRN Reason: Keep Vein Open Sodium Chloride (Normal Saline) 20 ml FLUSH ASDIRECTED PRN PRN Reason: PORT FLUSH Last Admin: 05/16/17 15:14 Dose: 20 ml Venlafaxine HCl (Effexor Xr) 150 mg PO DAILY [facility] Last Admin: 05/17/17 08:17 Dose: 150 mg Zolpidem Tartrate (Ambien) 10 mg PO BEDTIME PRN PRN Reason: Sleep Last Admin: 05/16/17 22:21 Dose: 10 mg Discontinued Medications Acetaminophen (Tylenol Extra Strength) Confirm Administered Dose 1,000 mg .ROUTE .STK-MED ONE Stop: 05/14/17 03:30 Last Admin: 05/14/17 06:50 Dose: Not Given Acetaminophen (Tylenol Extra Strength) 1,000 mg PO ONETIME ONE Stop: 05/14/17 03:30 Enoxaparin Sodium (Lovenox) 40 mg SUBCUT DAILY [facility] Last Admin: 05/14/17 10:55 Dose: Not Given Piperacillin Sod/Tazobactam (Sod 4.5 gm/ Sodium Chloride) 100 mls @ 200 mls/hr IV Q6H [facility] Last Admin: 05/14/17 09:09 Dose: Not Given Sodium Chloride (Normal Saline) 1,000 mls @ 999 mls/hr IV .BOLUS ONE Stop: 05/14/17 06:00 Last Admin: 05/14/17 05:00 Dose: 999 mls/hr Vancomycin HCl 1 gm/ Sodium (Chloride) 250 mls @ 167 mls/hr IV Q24H [facility] Last Admin: 05/14/17 06:03 Dose: 167 mls/hr Sodium Chloride (Normal Saline) Confirm Administered Dose 1,000 mls @ as directed .ROUTE .STK-MED ONE Stop: 05/14/17 05:03 Last Admin: 05/14/17 05:52 Dose: Not Given Sodium Chloride (Normal Saline) 1,000 mls @ 999 mls/hr IV .[facility]US [facility] Vancomycin HCl 1 gm/ Sodium (Chloride) 250 mls @ 167 mls/hr IV Q24H [facility] Last Admin: 05/14/17 06:34 Dose: Not Given Piperacillin Sod/Tazobactam (Sod 4.5 gm/ Sodium Chloride) 100 mls @ 200 mls/hr IV Q6H [facility] Last Admin: 05/14/17 09:07 Dose: 200 mls/hr Piperacillin/Tazobactam/Dextrose (Zosyn In Dextrose Iso-Osmotic 3.375 Gm) 50 mls @ 100 mls/hr IV Q6H [facility] Stop: 05/16/17 09:01 Last Admin: 05/16/17 10:56 Dose: 100 mls/hr Vancomycin HCl 1.5 gm/ Sodium (Chloride) 280 mls @ 112 mls/hr IV Q12H [facility] Stop: 05/16/17 08:01 Last Admin: 05/16/17 08:17 Dose: 112 mls/hr Vancomycin HCl 0.5 gm/ Sodium (Chloride) 110 mls @ 110 mls/hr IV ONETIME ONE Stop: 05/14/17 11:59 Last Admin: 05/14/17 12:03 Dose: 110 mls/hr Sodium Chloride (Normal Saline) 1,000 mls @ 30 mls/hr IV DAILY@1999 [facility] Stop: 05/16/17 09:31 Last Admin: 05/15/17 22:27 Dose: 30 mls/hr Ibuprofen (Motrin) 600 mg PO ONETIME ONE Stop: 05/14/17 05:02 Last Admin: 05/14/17 05:00 Dose: 600 mg Ibuprofen (Motrin) Confirm Administered Dose 600 mg .ROUTE .STK-MED ONE Stop: 05/14/17 05:08 Last Admin: 05/14/17 05:52 Dose: Not Given Senna/Docusate Sodium (Senna Plus) 1 tab PO DAILY [facility] Last Admin: 05/15/17 09:10 Dose: Not Given Vancomycin HCl (Pharmacy To Dose - Vancomycin) 1 dose .XX ASDIRECTED [facility] - Exam General: alert, oriented Neck: supple Lungs: Clear to Auscultation, Normal Respiratory Effort Cardiovascular: Regular Rate, Regular Rhythm GI/Abdominal Exam: Normal Bowel Sounds, Soft, Non-Tender, No Organomegaly, No Distention, No Abnormal Bruit, No Mass, Pelvis Stable Extremities: Normal Inspection, Normal Range of Motion, Non-Tender, No Pedal Edema, Normal Capillary Refill Skin: warm, dry, intact Neurological: no new focal deficit Psy/Mental Status: alert, normal affect, normal mood - Problem List Review Problem List Initiated/Reviewed/Updated: Yes - Assessment Assessment:: 1. leukopenia- improved; repeat CBC in am 2. fevers- resolved - Plan Plan:: Per his oncologist, I will discontinue vancomycin and zosyn today. Will start levofloxacin 750 mg PO daily. Will stop IVF's. He can be up and around with neutropenic precautions. Anticipate discharge Thursday to home if counts continue to improve.
[2017-05-17] MEDS: Simvastatin 10 MG Tab PO SCH (20:56)
[2017-05-17] MEDS: Enoxaparin 40 MG/0.4 ML Syringe SUBCUT SCH (20:57)
[2017-05-17] MEDS: Zolpidem 5 MG Tab PO PRN (21:10)
[2017-05-18] MEDS: Omeprazole 20 MG Cap.CR PO SCH (06:14)
[2017-05-18 06:48] VITALS: BP 117/71
[2017-05-18 08:08] LABS: CHLORIDE,CL 104 mmol/L (98-115); SODIUM,NA 142 mmol/L (136-145)
--- NOTE | 2017-05-18 08:34 | PCM.DCSUM1 ---
Discharge Summary - Hospital Course Free Text/Narrative:: Jadiel is being discharged from an inpatient stay from 05/14/17 - 05/18/17. He was admitted with chemotherapy induced neutropenia with fever. He has Non- hodgkin's lymphoma. In the ER his temp was 39.3 C. He was started on vancomycin and zosyn and had the full work-up for neutropenia with fever. He has had negative blood cultures x 4 days as well as negative urine culture. He never had a cough so no sputum was obtained. CXR was negative. He did received neulasta with his chemotherapy just over a week ago. At discharge his WBC was 3.7, hemoglobin 11.3 and platelets were 118,000, all improving. ANC was 2.4, up from 0.2 at admission. He did have a small spot in his right groin that was swabbed but the culture for that is pending. It does not appear to be infected. He was transitioned to levofloxacin 750 mg PO on 05/16/17. He will be discharged without any antibiotics. No new medications at the time of discharge. He is scheduled for a CBC on 05/20/17. He is hoping to go to [place] this weekend. - Discharge Data Discharge Date: 05/18/17 Discharge Disposition: Home, Self-Care 01 Condition: Good - Discharge Diagnosis/Problem(s) (1) Fever SNOMED Code(s): 035737557 ICD Code: R50.9 - FEVER, UNSPECIFIED Status: Acute Current Visit: Yes Qualifiers: Fever type: unspecified Qualified Code(s): R50.9 - Fever, unspecified (2) Lymphoma SNOMED Code(s): 358398446 ICD Code: C85.90 - NON-HODGKIN LYMPHOMA, UNSPECIFIED, UNSPECIFIED SITE Status: Acute Current Visit: Yes Qualifiers: Lymphoma type: non-Hodgkin (3) Neutropenia SNOMED Code(s): 796938444 ICD Code: D70.9 - NEUTROPENIA, UNSPECIFIED Status: Acute Current Visit: Yes Qualifiers: Neutropenia type: unspecified Qualified Code(s): D70.9 - Neutropenia, unspecified - Patient Instructions Diet: Regular Diet as Tolerated Activity: As Tolerated Driving: May Drive Today Showering/Bathing: May Shower Notify Provider of: Fever - Discharge Plan Home Medications: Home Meds Enoxaparin [Lovenox] 40 mg SUBCUT BEDTIME 04/18/17 [History] Omeprazole 20 mg PO ACBREAKFAST 04/18/17 [History] Prochlorperazine Maleate [Compazine] 10 mg PO Q6H PRN 04/18/17 [History] Sennosides/Docusate Sodium [Senna-S] 1 tab PO BID PRN 04/18/17 [History] Simvastatin [Zocor] 10 mg PO BEDTIME 04/18/17 [History] Venlafaxine [Effexor XR] 150 mg PO DAILY 04/18/17 [History] Aspirin [Halfprin] 81 mg PO BRK 05/14/17 [History] Cetirizine [ZyrTEC] 10 mg PO DAILY 05/14/17 [History] Ondansetron HCl [Ondansetron] 8 mg PO TID PRN 05/14/17 [History] Stomatitis Mouthwash 5 ml PO QID 05/14/17 [History] Zolpidem [Ambien] 10 mg PO BEDTIME PRN 05/14/17 [History] diphenhydrAMINE [Benadryl] 50 mg PO BEDTIME PRN 05/14/17 [History] oxyCODONE HCl [Oxycodone HCl] 10 mg PO Q4HR PRN 05/14/17 [History] predniSONE [Prednisone] 30 mg PO WITHBREAKFAST 05/14/17 [History] Referrals: Kristine Mike MD [Primary Care Provider] - - Discharge Summary/Plan Comment DC Time >30 min.: No - General Info Date of Service: 05/18/17 Admission Dx/Problem (Free Text: Fever with chemotherapy induced neutropenia. - Review of Systems Systems Review Comment: 10 point ROS obtained, all pertinent positives in HPI, all other systems negative. - Patient Data Vitals - Most Recent: Last Vital Signs Temp 96.9 F 05/18/17 06:48 Pulse 65 05/18/17 06:48 Resp 20 05/18/17 06:48 BP 117/71 05/18/17 06:48 Pulse Ox 96 05/18/17 06:48 Weight - Most Recent: 288 lb 2 oz I&O - Last 24 hours: Intake & Output 05/17/17 05/18/17 05/18/17 22:59 06:59 14:59 Intake Total 685 250 Output Total 600 Balance 85 250 Lab Results - Last 24 hrs: Laboratory Results - last 24 hr 05/18/17 05/18/17 Range/Units 07:28 07:28 WBC 3.7 L (5.0-10.0) 10^3/uL RBC 3.48 L (4.50-6.00) 10^6/uL Hgb 11.3 L (13.0-17.0) g/dL Hct 33.3 L (40.0-52.0) % MCV 95.7 H (82.0-92.0) fL MCH 32.5 H (27.0-31.0) pg MCHC 34.0 (32.0-36.0) g/dL RDW 14.8 H (11.5-14.5) % Plt Count 118 L (150-300) 10^3/uL MPV 7.6 (7.4-10.4) fL Neut % (Auto) 63.4 (50.0-70.0) % Lymph % (Auto) 20.6 (20.0-40.0) % [place] % (Auto) 14.2 H (2.0-8.0) % Eos % (Auto) 1.0 (1.0-3.0) % Baso % (Auto) 0.8 (0.0-1.0) % Neut # (Auto) 2.4 L (2.5-7.0) 10^3/uL Lymph # (Auto) 0.8 L (1.0-4.0) 10^3/uL [place] # (Auto) 0.5 (0.1-0.8) 10^3/uL Eos # (Auto) 0.0 L (0.1-0.3) 10^3/uL Baso # (Auto) 0.0 (0.0-0.1) 10^3/uL Sodium 142 (136-145) mmol/L Potassium 4.6 (3.3-5.3) mmol/L Chloride 104 (98-115) mmol/L Carbon Dioxide 31.9 (21.0-32.0) mmol/L BUN 14 (6-25) mg/dL Creatinine 0.81 (0.51-1.17) mg/dL Est Cr Clr Drug Dosing 87.62 mL/min Estimated GFR (MDRD) > 60 mL/min Glucose 114 H (70-110) mg/dL Calcium 8.9 (8.7-10.3) mg/dL Med Orders - Current: Current Medications Acetaminophen (Tylenol) 650 mg PO Q4H PRN PRN Reason: Pain (Mild 1-3)/fever Aspirin (Halfprin) 81 mg PO BRK [facility] Last Admin: 05/17/17 08:15 Dose: 81 mg Cetirizine HCl (Zyrtec) 10 mg PO DAILY [facility] Last Admin: 05/17/17 08:17 Dose: 10 mg Diphenhydramine HCl (Benadryl) 50 mg PO BEDTIME PRN PRN Reason: Sleep Enoxaparin Sodium (Lovenox) 40 mg SUBCUT BEDTIME [facility] Last Admin: 05/17/17 20:57 Dose: 40 mg Heparin Sodium (Porcine) (Heparin Lock Flush 100 Units/Ml) 500 unit FLUSH ASDIRECTED PRN PRN Reason: PORT FLUSH Last Admin: 05/16/17 15:16 Dose: 500 unit Levofloxacin (Levaquin) 750 mg PO DAILY [facility] Last Admin: 05/17/17 08:17 Dose: 750 mg Omeprazole (Omeprazole) 20 mg PO ACBREAKFAST [facility] Last Admin: 05/18/17 06:14 Dose: 20 mg Ondansetron HCl (Zofran Odt) 8 mg PO TID PRN PRN Reason: nausea and vomiting Oxycodone HCl (Oxycodone) 10 mg PO Q4H PRN PRN Reason: Pain Ptom Stomatitis (Mouthwash) 1 each PO QID [facility] Last Admin: 05/17/17 20:56 Dose: 1 each Prednisone (Prednisone) 30 mg PO WITHBREAKFAST [facility] Stop: 05/18/17 12:01 Last Admin: 05/17/17 08:16 Dose: 30 mg Prednisone (Prednisone) 20 mg PO WITHBREAKFAST [facility] Prochlorperazine Maleate (Compazine) 10 mg PO Q6H PRN PRN Reason: Nausea Senna/Docusate Sodium (Senna Plus) 1 tab PO DAILY PRN PRN Reason: constipation Simvastatin (Zocor) 10 mg PO BEDTIME [facility] Last Admin: 05/17/17 20:56 Dose: 10 mg Sodium Chloride (Syrex Flush) 5 ml FLUSH Q8HR PRN PRN Reason: Keep Vein Open Sodium Chloride (Normal Saline) 20 ml FLUSH ASDIRECTED PRN PRN Reason: PORT FLUSH Last Admin: 05/16/17 15:14 Dose: 20 ml Venlafaxine HCl (Effexor Xr) 150 mg PO DAILY [facility] Last Admin: 05/17/17 08:17 Dose: 150 mg Zolpidem Tartrate (Ambien) 10 mg PO BEDTIME PRN PRN Reason: Sleep Last Admin: 05/17/17 21:10 Dose: 10 mg Discontinued Medications Acetaminophen (Tylenol Extra Strength) Confirm Administered Dose 1,000 mg .ROUTE .STK-MED ONE Stop: 05/14/17 03:30 Last Admin: 05/14/17 06:50 Dose: Not Given Acetaminophen (Tylenol Extra Strength) 1,000 mg PO ONETIME ONE Stop: 05/14/17 03:30 Enoxaparin Sodium (Lovenox) 40 mg SUBCUT DAILY [facility] Last Admin: 05/14/17 10:55 Dose: Not Given Piperacillin Sod/Tazobactam (Sod 4.5 gm/ Sodium Chloride) 100 mls @ 200 mls/hr IV Q6H [facility] Last Admin: 05/14/17 09:09 Dose: Not Given Sodium Chloride (Normal Saline) 1,000 mls @ 999 mls/hr IV .BOLUS ONE Stop: 05/14/17 06:00 Last Admin: 05/14/17 05:00 Dose: 999 mls/hr Vancomycin HCl 1 gm/ Sodium (Chloride) 250 mls @ 167 mls/hr IV Q24H [facility] Last Admin: 05/14/17 06:03 Dose: 167 mls/hr Sodium Chloride (Normal Saline) Confirm Administered Dose 1,000 mls @ as directed .ROUTE .STK-MED ONE Stop: 05/14/17 05:03 Last Admin: 05/14/17 05:52 Dose: Not Given Sodium Chloride (Normal Saline) 1,000 mls @ 999 mls/hr IV .BOLUS [facility] Vancomycin HCl 1 gm/ Sodium (Chloride) 250 mls @ 167 mls/hr IV Q24H [facility] Last Admin: 05/14/17 06:34 Dose: Not Given Piperacillin Sod/Tazobactam (Sod 4.5 gm/ Sodium Chloride) 100 mls @ 200 mls/hr IV Q6H [facility] Last Admin: 05/14/17 09:07 Dose: 200 mls/hr Piperacillin/Tazobactam/Dextrose (Zosyn In Dextrose Iso-Osmotic 3.375 Gm) 50 mls @ 100 mls/hr IV Q6H [facility] Stop: 05/16/17 09:01 Last Admin: 05/16/17 10:56 Dose: 100 mls/hr Vancomycin HCl 1.5 gm/ Sodium (Chloride) 280 mls @ 112 mls/hr IV Q12H [facility] Stop: 05/16/17 08:01 Last Admin: 05/16/17 08:17 Dose: 112 mls/hr Vancomycin HCl 0.5 gm/ Sodium (Chloride) 110 mls @ 110 mls/hr IV ONETIME ONE Stop: 05/14/17 11:59 Last Admin: 05/14/17 12:03 Dose: 110 mls/hr Sodium Chloride (Normal Saline) 1,000 mls @ 30 mls/hr IV DAILY@1999 [facility] Stop: 05/16/17 09:31 Last Admin: 05/15/17 22:27 Dose: 30 mls/hr Ibuprofen (Motrin) 600 mg PO ONETIME ONE Stop: 05/14/17 05:02 Last Admin: 05/14/17 05:00 Dose: 600 mg Ibuprofen (Motrin) Confirm Administered Dose 600 mg .ROUTE .STK-MED ONE Stop: 05/14/17 05:08 Last Admin: 05/14/17 05:52 Dose: Not Given Senna/Docusate Sodium (Senna Plus) 1 tab PO DAILY [facility] Last Admin: 05/15/17 09:10 Dose: Not Given Vancomycin HCl (Pharmacy To Dose - Vancomycin) 1 dose .XX ASDIRECTED [facility] - Exam General: Reports: alert, oriented, cooperative, no acute distress Lungs: Reports: Clear to Auscultation, Normal Respiratory Effort Cardiovascular: Reports: Regular Rate, Regular Rhythm, No Murmurs GI/Abdominal Exam: Normal Bowel Sounds Extremities: Normal Inspection, No Pedal Edema Psy/Mental Status: Reports: alert, normal affect, normal mood *Q Meaningful Use (DIS) - VTE *Q VTE Criteria *Q: - Stroke *Q Stroke Criteria *Q: - AMI *Q AMI Criteria *Q:
[2017-05-18] MEDS: Levofloxacin 500 MG Tab PO SCH (08:47)
[2017-05-18] MEDS: Aspirin 81 MG Tab.EC PO SCH (08:48)
[2017-05-18] MEDS: Cetirizine 10 MG Tab PO SCH (08:48)
[2017-05-18] MEDS: predniSONE 20 MG Tab PO SCH (08:49)
[2017-05-18] MEDS: [UNRECOGNIZED DRUG - OTHER] PO SCH (08:49)
[2017-05-18] MEDS: Venlafaxine 150 MG Cap.ER PO SCH (08:49)
[2017-05-19] MEDS ORDERED: predniSONE 20 MG Tab PO SCH (08:00)
== END 2017-05-18 09:00 | disposition home or self-care (01) | DRG 809 ==
LOC: KA.ED 03:26 → KA.MS 05:25
PROVIDERS: ADMIT Physician Assistant Medical; ATTEND Internal Medicine
DX: R50.9 Fever, unspecified (principal); D70.9 Neutropenia, unspecified; D70.1 Agranulocytosis secondary to cancer chemotherapy; C83.10 Mantle cell lymphoma, unspecified site; C85.90 Non-Hodgkin lymphoma, unspecified, unspecified site; R50.81 Fever presenting with conditions classified elsewhere; R22.2 Localized swelling, mass and lump, trunk; E78.00 Pure hypercholesterolemia, unspecified; Z88.8 Allergy status to other drugs, medicaments and biological substances; Z79.899 Other long term (current) drug therapy; Z87.891 Personal history of nicotine dependence
CPT/HCPCS: 36415; 71020; 80053; 81001; 83605; 83690; 85025; 87040 ×2; 87086; 99285; A9270 ×2; J7030; 80048; 80202; 87070; 87077; 87186; 87205; J1642; J1650; J2543; J3370; J7050

== ENCOUNTER 2017-06-24 07:13 | Emergency (ER) | payer MEDICARE, BC ==
[2017-06-24 07:23] VITALS: BP 129/64
[2017-06-24 08:28] LABS: CHLORIDE,CL 105 mmol/L (98-115); SODIUM,NA 141 mmol/L (136-145)
--- NOTE | 2017-06-24 08:36 | EDM.PDOC ---
ED HPI GENERAL MEDICAL PROBLEM - General Chief Complaint: Fever Stated Complaint: FEVER Time Seen by Provider: 06/24/17 08:08 Source of Information: Reports: Patient History Limitations: Reports: No Limitations - History of Present Illness INITIAL COMMENTS - FREE TEXT/NARRATIVE: Patient presents with chills that started about 0400. At 0700 he told his ; she checked a temp of 101.8 and brought him in. He denies cough, dyspnea, dysuria or any pain or infection anywhere in his body. His reminds him that he was a little sore in his groin; he says he just scrubbed there too much because of increased sweating he attributes to his chemo. He has to use powder in his groin to try to keep it dry from sweat. He is getting chemotherapy for Non-Hodgkins Lymphoma and most recent treatment was 5 days ago. A month ago he was hospitalized with similar symptoms and treated with antibiotics for a couple days. No source of infection was identified. WBC at that time was 1.1 per patient. Treatments [employer] PSYCHOLOGIST: Reports: Acetaminophen - Related Data Allergies Allergy/AdvReac Type Severity Reaction Status Date / Time cefazolin Allergy Rash Verified 05/14/17 04:34 bednamustine Allergy Rash Uncoded 05/14/17 04:34 Home Meds: Home Meds Enoxaparin [Lovenox] 40 mg SUBCUT BEDTIME 04/18/17 [History] Omeprazole 20 mg PO ACBREAKFAST 04/18/17 [History] Prochlorperazine Maleate [Compazine] 10 mg PO Q6H PRN 04/18/17 [History] Sennosides/Docusate Sodium [Senna-S] 1 tab PO BID PRN 04/18/17 [History] Simvastatin [Zocor] 10 mg PO BEDTIME 04/18/17 [History] Venlafaxine [Effexor XR] 150 mg PO DAILY 04/18/17 [History] Aspirin [Halfprin] 81 mg PO BRK 05/14/17 [History] Cetirizine [ZyrTEC] 10 mg PO DAILY 05/14/17 [History] Stomatitis Mouthwash 5 ml PO QID 05/14/17 [History] Zolpidem [Ambien] 10 mg PO BEDTIME PRN 05/14/17 [History] diphenhydrAMINE [Benadryl] 50 mg PO BEDTIME PRN 05/14/17 [History] Granisetron HCl 1 mg PO ASDIRECTED PRN 06/24/17 [History] Pegfilgrastim [Neulasta] 6 mg SQ ASDIRECTED 06/24/17 [History] predniSONE [Prednisone] 100 mg PO ASDIRECTED 06/24/17 [History] Past Medical History HEENT History: Reports: Impaired Vision Cardiovascular History: Reports: Blood Clots/VTE/DVT, High Cholesterol Other Cardiovascular History: left armpit blood clot with paralysis, right leg DVT on lovenox Respiratory History: Reports: Sleep Apnea Gastrointestinal History: Reports: None Musculoskeletal History: Reports: None Psychiatric History: Reports: Anxiety, Depression Endocrine/Metabolic History: Reports: Obesity/BMI 30+ Immunologic History: Reports: Immunosuppression Oncologic (Cancer) History: Reports: Non-Hodgkin's Lymphoma Other Oncologic History: mantle cell lymphoma - Infectious Disease History Infectious Disease History: Reports: Chicken Pox - Past Surgical History Head Surgeries/Procedures: Reports: None HEENT Surgical History: Reports: None Cardiovascular Surgical History: Reports: None, Vascular Surgery Respiratory Surgical History: Reports: None GI Surgical History: Reports: Appendectomy, Cholecystectomy Endocrine Surgical History: Reports: None Musculoskeletal Surgical History: Reports: Other (See Below) Other Musculoskeletal Surgeries/Procedures:: Blood clot to left shoulder area that wasn't found early enough. Lost use of arm. Oncologic Surgical History: Reports: None Dermatological Surgical History: Reports: None Social & Family History - Family History Family Medical History: Noncontributory - Tobacco Use Smoking Status *Q: Former Smoker Years of Tobacco use: 15 Packs/Tins Daily: 1 Used Tobacco, but Quit: Yes Month Tobacco Last Used: 10 - Caffeine Use Caffeine Use: Reports: Soda Other Caffeine Use: diet and regular - Recreational Drug Use Recreational Drug Use: No ED ROS GENERAL - Review of Systems Review Of Systems: See Below Constitutional: Reports: Fever, Chills, Malaise (not feeling well for 2 days) HEENT: Reports: No Symptoms. Denies: Throat Pain Respiratory: Denies: Shortness of Breath, Cough Cardiovascular: Denies: Chest Pain, Syncope GI/Abdominal: Denies: Abdominal Pain, Decreased Appetite (appetite has been poor in the past due to chemo but he is happy to say it is good now.) : Denies: Dysuria, Flank Pain Musculoskeletal: Reports: No Symptoms, Other (he has numbness and paralysis of left forearm since a blood clot a few months ago) Skin: Denies: Cyanosis, Jaundice, Mottled, Pallor, Diaphoresis Neurological: Denies: Confusion, Dizziness, Headache Psychiatric: Denies: Agitation, Anxiety, Confusion ED EXAM, SEPSIS - Physical Exam Exam: See Below Exam Limited By: No Limitations General Appearance: Alert, WD/WN, No Apparent Distress Eye Exam: Bilateral Eye: EOMI, Normal Inspection, PERRL Ears: Normal External Exam, Normal Canal, Hearing Grossly Normal, Normal TMs Nose: Normal Inspection, No Blood Throat/Mouth: Normal Inspection, Normal Lips, Normal Teeth, Normal Oropharynx, Normal Voice, No Airway Compromise Head: Atraumatic, Normocephalic Neck: Normal Inspection, Full Range of Motion Respiratory/Chest: No Respiratory Distress, Lungs Clear, Normal Breath Sounds Cardiovascular: Normal Peripheral Pulses, Regular Rate, Rhythm, No Murmur Peripheral Pulses: 2+: Carotid (L), Carotid (R), Radial (L), Radial (R), Posterior Tibial (L), Posterior Tibial (R) GI/Abdominal Exam: Normal Bowel Sounds, Soft, Non-Tender, No Organomegaly, Hernia (small umbilical, reducible) (Male) Exam: Rash (slight, non-erythematous rash of groin. There is a 1.5 cm red, indurated lesion on right upper medial thigh consistent with a superficial abscess or pustule, non-fluctuant currently.) Back: Normal Inspection, Full Range of Motion. No: CVA Tenderness (L), CVA Tenderness (R) Extremities: Normal Inspection, Normal Range of Motion, Non-Tender, No Pedal Edema Neurological: Alert, Oriented, Normal Cognition, No Motor/Sensory Deficits Psychiatric: Normal Affect, Normal Mood Skin: Warm, Dry, Intact Lymphatic: Bilateral: No Adenopathy Course - Vital Signs Last Recorded V/S: Last Vital Signs Temp 100.3 F 06/24/17 07:20 Pulse 85 06/24/17 07:20 Resp 16 06/24/17 07:20 BP 129/64 06/24/17 07:20 Pulse Ox 93 L 06/24/17 07:20 - Orders/Labs/Meds Orders: Active Orders 24 hr Category Date Time Status CXR [Chest 2V] [CR] Stat Exams 06/24/17 07:39 Ordered BASIC METABOLIC PANEL,BMP [CHEM] Stat Lab 06/24/17 07:25 Received CULTURE BLOOD [BC] Stat Lab 06/24/17 07:25 Received CULTURE BLOOD [BC] Stat Lab 06/24/17 07:41 Ordered LACTIC ACID [CHEM] Stat Lab 06/24/17 07:25 Received UA W/MICROSCOPIC [URIN] Stat Lab 06/24/17 07:39 Uncollected Labs: Laboratory Tests 06/24/17 Range/Units 07:25 WBC 2.4 L (5.0-10.0) 10^3/uL RBC 2.67 L (4.50-6.00) 10^6/uL Hgb 8.6 L (13.0-17.0) g/dL Hct 25.1 L (40.0-52.0) % MCV 94.2 H (82.0-92.0) fL MCH 32.3 H (27.0-31.0) pg MCHC 34.3 (32.0-36.0) g/dL RDW 16.0 H (11.5-14.5) % Plt Count 155 (150-300) 10^3/uL MPV 7.8 (7.4-10.4) fL Neut % (Auto) 75.8 H (50.0-70.0) % Lymph % (Auto) 19.0 L (20.0-40.0) % [place] % (Auto) 4.0 (2.0-8.0) % Eos % (Auto) 0.3 L (1.0-3.0) % Baso % (Auto) 0.9 (0.0-1.0) % Neut # (Auto) 1.8 L (2.5-7.0) 10^3/uL Lymph # (Auto) 0.5 L (1.0-4.0) 10^3/uL [place] # (Auto) 0.1 (0.1-0.8) 10^3/uL Eos # (Auto) 0.0 L (0.1-0.3) 10^3/uL Baso # (Auto) 0.0 (0.0-0.1) 10^3/uL - Re-Assessments/Exams Free Text/Narrative Re-Assessment/Exam: 06/24/17 09:19 WBC 2.4, Lactate 2.4, Hg 8.6, Potassium 2.9. Discussed findings with Dr. Pope (pt's oncologist at [place]), who advised Levaquin outpatient and recheck WBC in two days if fever persists. He says the WBC usually bottoms out 7-10 days after chemo. He defines neutropenia of ANC less than 1.5 and recommends admission if less than 1.0 (1000). Discussed with Dr. Herring and patient and his and will treat accordingly. Patient stable and feeling well at discharge. 06/24/17 09:45 Radiologist re-read CXR with the comparisons from last month and feels there is atelectasis rather than infiltrate. Departure - Departure Time of Disposition: 09:23 Disposition: Home, Self-Care 01 Condition: Good Clinical Impression: Fever and chills - Discharge Information Referrals: Kristine Mike MD [Primary Care Provider] - Additional Instructions: 1. Take the Levaquin daily as directed. 2. Drink 8 cups of water daily. 3. Recheck with your PCP in two days if the fever persists. 4. Eat 2-3 bananas a day as discussed and have potassium rechecked in a few days. 5. Return to ER as needed for any worsening. - My Orders Last 24 Hours: My Active Orders 06/24/17 07:25 BASIC METABOLIC PANEL,BMP [CHEM] Stat CULTURE BLOOD [BC] Stat LACTIC ACID [CHEM] Stat 06/24/17 07:39 CXR [Chest 2V] [CR] Stat UA W/MICROSCOPIC [URIN] Stat 06/24/17 07:41 CULTURE BLOOD [BC] Stat - Assessment/Plan Last 24 Hours: My Active Orders 06/24/17 07:25 BASIC METABOLIC PANEL,BMP [CHEM] Stat CULTURE BLOOD [BC] Stat LACTIC ACID [CHEM] Stat 06/24/17 07:39 CXR [Chest 2V] [CR] Stat UA W/MICROSCOPIC [URIN] Stat 06/24/17 07:41 CULTURE BLOOD [BC] Stat
== END 2017-06-24 09:50 | disposition home or self-care (01) ==
LOC: KA.ED 07:13
DX: R50.9 Fever, unspecified (principal); Z87.891 Personal history of nicotine dependence; E78.00 Pure hypercholesterolemia, unspecified; G47.30 Sleep apnea, unspecified; F32.9 Major depressive disorder, single episode, unspecified; E66.9 Obesity, unspecified; Z85.72 Personal history of non-Hodgkin lymphomas; Z90.49 Acquired absence of other specified parts of digestive tract; Z98.890 Other specified postprocedural states; Z86.718 Personal history of other venous thrombosis and embolism; Z79.899 Other long term (current) drug therapy; Z88.1 Allergy status to other antibiotic agents; Z88.8 Allergy status to other drugs, medicaments and biological substances; Z68.41 Body mass index [BMI] 40.0-44.9, adult
CPT/HCPCS: 71020; 80048; 81001; 83605; 85025; 87040; 99284

== ENCOUNTER 2017-07-18 12:31 | Inpatient (IN) | payer MEDICARE, BC ==
[2017-07-18] MEDS ORDERED: Sodium Chloride 0.9% 1,000 ML IV ONE (13:09)
[2017-07-18] MEDS ORDERED: Sodium Chloride 0.9% 5 ML Syringe FLUSH PRN ×2 (13:09→15:32)
[2017-07-18] MEDS ORDERED: Acetaminophen 500 MG Tab PO ONE (13:10)
--- NOTE | 2017-07-18 13:39 | EDM.PDOC ---
ED HPI GENERAL MEDICAL PROBLEM - General Chief Complaint: General Stated Complaint: FEVERS Time Seen by Provider: 07/18/17 13:15 Source of Information: Reports: Patient History Limitations: Reports: No Limitations - History of Present Illness INITIAL COMMENTS - FREE TEXT/NARRATIVE: 72 YO WM presents to ER with 2 day history of low grade fever after chemotherapy. Pt reports this is a regular occurrence after chemo and has temperatures as high as 100.8 with associated fatigue. Pt denies any shortness of breath, productive cough or chest pain. Pt states he has been eating and drinking well until yesterday when he had decreased appetite and fever/chills as noted. Pt denies any urinary frequency, urgency or dysuria. Onset Date: 07/16/17 Duration: Day(s): (2) Location: Reports: Generalized Quality: Reports: Ache Severity: Mild Improves with: Reports: Medication Worsens with: Reports: None Associated Symptoms: Reports: Fever/Chills, Headaches, Loss of Appetite, Malaise. Denies: Confusion, Chest Pain, Cough, cough w sputum, Nausea/Vomiting , Rash, Seizure, Shortness of Breath, Syncope, Weakness Treatments BUSINESS SERVICES ASSOCIATE: Reports: Acetaminophen - Related Data Allergies Allergy/AdvReac Type Severity Reaction Status Date / Time cefazolin Allergy Rash Verified 07/18/17 12:51 bednamustine Allergy Rash Uncoded 05/14/17 04:34 Home Meds: Home Meds Enoxaparin [Lovenox] 40 mg SUBCUT BEDTIME 04/18/17 [History] Omeprazole 20 mg PO ACBREAKFAST 04/18/17 [History] Prochlorperazine Maleate [Compazine] 10 mg PO QID PRN 04/18/17 [History] Sennosides/Docusate Sodium [Senna-S] 1 tab PO DAILY 04/18/17 [History] Simvastatin [Zocor] 10 mg PO BEDTIME 04/18/17 [History] Venlafaxine [Effexor XR] 150 mg PO DAILY 04/18/17 [History] Aspirin [Halfprin] 81 mg PO BRK 05/14/17 [History] Cetirizine [ZyrTEC] 10 mg PO DAILY 05/14/17 [History] Stomatitis Mouthwash 5 ml PO QID 05/14/17 [History] Zolpidem [Ambien] 10 mg PO BEDTIME PRN 05/14/17 [History] diphenhydrAMINE [Benadryl] 50 mg PO BEDTIME 05/14/17 [History] Granisetron HCl 1 mg PO ASDIRECTED PRN 06/24/17 [History] Pegfilgrastim [Neulasta] 6 mg SQ ASDIRECTED 06/24/17 [History] predniSONE [Prednisone] 100 mg PO ASDIRECTED 06/24/17 [History] Past Medical History HEENT History: Reports: Impaired Vision Cardiovascular History: Reports: Blood Clots/VTE/DVT, High Cholesterol Other Cardiovascular History: left armpit blood clot with paralysis, right leg DVT on lovenox Respiratory History: Reports: Sleep Apnea Gastrointestinal History: Reports: None Musculoskeletal History: Reports: None Psychiatric History: Reports: Anxiety, Depression Endocrine/Metabolic History: Reports: Obesity/BMI 30+ Immunologic History: Reports: Immunosuppression Oncologic (Cancer) History: Reports: Non-Hodgkin's Lymphoma Other Oncologic History: mantle cell lymphoma - Infectious Disease History Infectious Disease History: Reports: Chicken Pox - Past Surgical History Head Surgeries/Procedures: Reports: None HEENT Surgical History: Reports: None Cardiovascular Surgical History: Reports: None, Vascular Surgery Respiratory Surgical History: Reports: None GI Surgical History: Reports: Appendectomy, Cholecystectomy Endocrine Surgical History: Reports: None Musculoskeletal Surgical History: Reports: Other (See Below) Other Musculoskeletal Surgeries/Procedures:: Blood clot to left shoulder area that wasn't found early enough. Lost use of arm. Oncologic Surgical History: Reports: None Dermatological Surgical History: Reports: None Social & Family History - Family History Family Medical History: Noncontributory - Tobacco Use Smoking Status *Q: Former Smoker Years of Tobacco use: 15 Packs/Tins Daily: 1 Used Tobacco, but Quit: Yes Month Tobacco Last Used: 10 - Caffeine Use Caffeine Use: Reports: Soda Other Caffeine Use: diet and regular - Recreational Drug Use Recreational Drug Use: No ED ROS GENERAL - Review of Systems Review Of Systems: See Below Constitutional: Reports: Fever, Chills, Malaise HEENT: Reports: No Symptoms Respiratory: Reports: No Symptoms Cardiovascular: Reports: No Symptoms Endocrine: Reports: No Symptoms GI/Abdominal: Reports: No Symptoms : Reports: No Symptoms Musculoskeletal: Reports: No Symptoms Skin: Reports: No Symptoms Neurological: Reports: No Symptoms Psychiatric: Reports: No Symptoms Hematologic/Lymphatic: Reports: No Symptoms Immunologic: Reports: No Symptoms ED EXAM, GENERAL - Physical Exam Exam: See Below Exam Limited By: No Limitations General Appearance: Alert, WD/WN, No Apparent Distress Ears: Normal External Exam, Normal Canal, Hearing Grossly Normal, Normal TMs Ear Exam: Bilateral Ear: Auricle Normal, Canal Normal, TM normal Nose: Normal Inspection, Normal Mucosa, No Blood Throat/Mouth: Normal Inspection, Normal Lips, Normal Teeth, Normal Gums, Normal Oropharynx, Normal Voice, No Airway Compromise Head: Atraumatic, Normocephalic Neck: Normal Inspection, Supple, Non-Tender, Full Range of Motion Respiratory/Chest: No Respiratory Distress, Lungs Clear, Normal Breath Sounds, No Accessory Muscle Use, Chest Non-Tender Cardiovascular: Normal Peripheral Pulses, Regular Rate, Rhythm, No Edema, No Gallop, No JVD, No Murmur, No Rub GI/Abdominal: Normal Bowel Sounds, Soft, Non-Tender, No Organomegaly, No Distention, No Abnormal Bruit, No Mass Back Exam: Normal Inspection, Full Range of Motion, NT Extremities: Normal Inspection, Normal Range of Motion, Non-Tender, Normal Capillary Refill, No Pedal Edema Neurological: Alert, Oriented, CN II-XII Intact, Normal Cognition, Normal Gait, Normal Reflexes, No Motor/Sensory Deficits Psychiatric: Normal Affect, Normal Mood Skin Exam: Warm, Dry, Intact, Normal Color, No Rash Lymphatic: No Adenopathy Course - Vital Signs Last Recorded V/S: Last Vital Signs Temp 38.1 C 07/18/17 13:42 Pulse 86 07/18/17 12:52 Resp 22 H 07/18/17 12:52 BP 159/80 H 07/18/17 12:52 Pulse Ox 95 07/18/17 12:52 - Orders/Labs/Meds Orders: Active Orders 24 hr Category Date Time Status Peripheral IV Care [RC] . DIRECTED Care 07/18/17 13:09 Active Chest 2V [CR] Stat Exams 07/18/17 13:09 Ordered CULTURE BLOOD [BC] Stat Lab 07/18/17 13:00 Received CULTURE BLOOD [BC] Stat Lab 07/18/17 13:09 Ordered UA W/MICROSCOPIC [URIN] Stat Lab 07/18/17 13:09 Uncollected Sodium Chloride 0.9% [Syrex Flush] Med 07/18/17 13:09 Active 5 ml FLUSH Q8HR PRN Blood Culture x2 Reflex Set [OM.PC] Stat Oth 07/18/17 13:09 Ordered Peripheral IV Insertion Adult [OM.PC] Routine Ot 07/18/17 13:09 Ordered Medication Orders Sodium Chloride (Syrex Flush) 5 ml FLUSH Q8HR PRN PRN Reason: Keep Vein Open Labs: Laboratory Tests 07/18/17 07/18/17 07/18/17 Range/Units 13:00 13:00 13:00 WBC 0.6 L* (5.0-10.0) 10^3/uL RBC 3.14 L (4.50-6.00) 10^6/uL Hgb 9.9 L (13.0-17.0) g/dL Hct 29.4 L (40.0-52.0) % MCV 93.9 H (82.0-92.0) fL MCH 31.7 H (27.0-31.0) pg MCHC 33.8 (32.0-36.0) g/dL RDW 16.4 H (11.5-14.5) % Plt Count 110 L (150-300) 10^3/uL MPV 7.9 (7.4-10.4) fL Neut % (Auto) 12.9 L (50.0-70.0) % Lymph % (Auto) 42.9 H (20.0-40.0) % [place] % (Auto) 33.1 H (2.0-8.0) % Eos % (Auto) 7.7 H (1.0-3.0) % Baso % (Auto) 3.4 H (0.0-1.0) % Neut # (Auto) 0.1 L (2.5-7.0) 10^3/uL Lymph # (Auto) 0.3 L (1.0-4.0) 10^3/uL [place] # (Auto) 0.2 (0.1-0.8) 10^3/uL Eos # (Auto) 0.0 L (0.1-0.3) 10^3/uL Baso # (Auto) 0.0 (0.0-0.1) 10^3/uL Sodium 138 (136-145) mmol/L Potassium 3.5 (3.3-5.3) mmol/L Chloride 102 (98-115) mmol/L Carbon Dioxide 27.7 (21.0-32.0) mmol/L BUN 11 (6-25) mg/dL Creatinine 0.70 (0.51-1.17) mg/dL Est Cr Clr Drug Dosing TNP Estimated GFR (MDRD) > 60 mL/min Glucose 105 (70-110) mg/dL Lactic Acid 2.1 H (0.4-2.0) mmol/L Calcium 8.3 L (8.7-10.3) mg/dL Total Bilirubin 1.3 H (0.2-1.0) mg/dL AST 15 (15-37) U/L ALT 42 (12-78) U/L Alkaline Phosphatase 84 (46-116) IU/L Total Protein 6.7 (6.4-8.2) g/dL Albumin 3.34 (3.00-4.80) g/dL Meds: Medications Generic Name Dose Route Start Last Admin Trade Name Freq PRN Reason Stop Dose Admin Sodium Chloride 5 ml 07/18/17 13:09 Syrex Flush FLUSH Q8HR PRN Keep Vein Open Discontinued Medications Generic Name Dose Route Start Last Admin Trade Name Freq PRN Reason Stop Dose Admin Acetaminophen 1,000 mg 07/18/17 13:10 07/18/17 13:42 Tylenol Extra Strength PO 07/18/17 13:11 1,000 mg ONETIME ONE Administration Sodium Chloride 1,000 mls @ 999 mls/hr 07/18/17 13:09 07/18/17 14:04 Normal Saline IV 07/18/17 14:09 999 mls/hr .BOLUS ONE Administration - Radiology Interpretation Free Text/Narrative:: CXR- NAD Departure - Departure Time of Disposition: 15:26 Disposition: Admitted As Inpatient 68 Condition: Poor Clinical Impression: Fever and chills Neutropenia Qualifiers: Neutropenia type: unspecified Qualified Code(s): D70.9 - Neutropenia, unspecified - Discharge Information Referrals: Uziel Melchor VOICE COACH [Primary Care Provider] - Forms: ED Department Discharge - My Orders Last 24 Hours: My Active Orders 07/18/17 13:00 CULTURE BLOOD [BC] Stat 07/18/17 13:09 Peripheral IV Care [RC] . DIRECTED Chest 2V [CR] Stat CULTURE BLOOD [BC] Stat UA W/MICROSCOPIC [URIN] Stat Sodium Chloride 0.9% [Syrex Flush] 5 ml FLUSH Q8HR PRN Blood Culture x2 Reflex Set [OM.PC] Stat Peripheral IV Insertion Adult [OM.PC] Routine - Assessment/Plan Last 24 Hours: My Active Orders 07/18/17 13:00 CULTURE BLOOD [BC] Stat 07/18/17 13:09 Peripheral IV Care [RC] . DIRECTED Chest 2V [CR] Stat CULTURE BLOOD [BC] Stat UA W/MICROSCOPIC [URIN] Stat Sodium Chloride 0.9% [Syrex Flush] 5 ml FLUSH Q8HR PRN Blood Culture x2 Reflex Set [OM.PC] Stat Peripheral IV Insertion Adult [OM.PC] Routine Assessment:: 1. leukopenia/Neutropenia 2. Fever
[2017-07-18 14:20] LABS: CHLORIDE,CL 102 mmol/L (98-115); SODIUM,NA 138 mmol/L (136-145)
[2017-07-18] MEDS ORDERED: Piperacillin/Tazobactam 4.5 GM in Sodium Chloride 0.9% 100 ML IV SCH ×2 (15:45→17:00)
[2017-07-18] MEDS: Sodium Chloride 0.9% 1,000 ML IV SCH (17:54)
[2017-07-18] MEDS: Ibuprofen 600 MG Tab PO PRN (17:57)
[2017-07-18] MEDS: Piperacillin/Tazobactam 3.375 GM in Sodium Chloride 0.9% 50 ML IV SCH ×2 (18:05→23:08)
[2017-07-18] MEDS: Acetaminophen 325 MG Tab PO PRN (18:45)
[2017-07-18] MEDS ORDERED: Prochlorperazine 5 MG Tab PO PRN (21:53)
[2017-07-18] MEDS ORDERED: Ondansetron 4 MG/2 ML SDV IVPUSH PRN (21:55)
[2017-07-18] MEDS ORDERED: PREDNISONE PO SCH (22:00)
[2017-07-18] MEDS ORDERED: Zolpidem 5 MG Tab PO PRN (22:01)
[2017-07-18] MEDS: Enoxaparin 40 MG/0.4 ML Syringe SUBCUT SCH (23:07)
[2017-07-19] MEDS: Sodium Chloride 0.9% 1,000 ML IV SCH ×2 (05:19→16:55)
[2017-07-19] MEDS: Piperacillin/Tazobactam/Dext 3.375 GM in Premix Bag 1 BAG IV SCH ×4 (05:19→23:54)
[2017-07-19] MEDS: Omeprazole 20 MG Cap.CR PO SCH (06:37)
[2017-07-19 07:10] LABS: CHLORIDE,CL 106 mmol/L (98-115); SODIUM,NA 141 mmol/L (136-145)
[2017-07-19] MEDS: Venlafaxine 150 MG Cap.ER PO SCH (08:17)
[2017-07-19] MEDS: Cetirizine 10 MG Tab PO SCH (08:17)
[2017-07-19] MEDS: Aspirin 81 MG Tab.EC PO SCH (08:17)
[2017-07-19] MEDS: Acetaminophen 325 MG Tab PO PRN ×4 (08:18→22:22)
--- NOTE | 2017-07-19 13:22 | PN ---
07/19/2017 PATIENT NAME: SURYA ACHARYA SUBJECTIVE: This is a 72-year-old male who is being seen on inpatient rounds today. He was admitted yesterday through the emergency room with a neutropenic fever. He received chemo one week ago. His T-max at home was 100.8 with associated fatigue. His has been alternating Tylenol and ibuprofen to keep the fever down. He developed fever and chills yesterday and was brought to the emergency room by his . His medications include antibiotic therapy of Zosyn as well as vancomycin. Clinically, the patient feels quite a bit better. His T-max last evening was 104.4. He has been afebrile since that time. The patient states he is eating well and feeling significantly better than he did prior to admission. PERTINENT LABORATORY DATA: Included a white count of 0.6, hemoglobin of 9.9, platelets of 110,000. Chemistries were fairly normal with the exception of a calcium of 8.3 and a bilirubin of 1.3. Lactic acid was 2.1 on admission. Lab data today includes a white blood cell count of 0.9, which is improved. His hemoglobin is 8.9. It was 9.9 on admission. His platelets are 90,000 and they were 110,000 on admission. Calcium was low at 7.8. Urine on admission was slightly cloudy with a trace of occult blood and 5 to 10 wbc's, but just a few bacteria. He has cultures on urine, blood, and sputum pending. PHYSICAL EXAMINATION: VITAL SIGNS: Temp is 98, pulse 67, respirations 16, blood pressure 112/69, O2 saturation is 96%. SKIN: Warm, pale, dry to touch. He does have a port in the right chest. CARDIAC: Reveals S1, S2 to be normal. Rate and rhythm are regular. No murmur, click, or gallop is auscultated. LUNGS: Clear without rales, wheezes, or rhonchi. ABDOMEN: Soft, nontender with positive bowel sounds. EXTREMITIES: There is no pedal edema. IMPRESSION AND PLAN: Neutropenic fever following chemotherapy, clinically improved. Labs are ordered for tomorrow to include a CBC and a CMP. Discharge will be entertained when he has been afebrile for 48 hours. We will continue to monitor him closely. Hopefully, the fever will be kept at bay. He does have p.r.n. Tylenol, which his nurse actually has been giving every 4 hours. I have communicated my findings to Dr. Kristine Rajan. /[id number]/MODL
[2017-07-19] MEDS: Enoxaparin 40 MG/0.4 ML Syringe SUBCUT SCH (20:21)
[2017-07-19] MEDS: diphenhydrAMINE 25 MG Cap PO SCH (20:21)
[2017-07-19] MEDS: Simvastatin 10 MG Tab PO SCH (20:22)
[2017-07-19] MEDS ORDERED: Enoxaparin 40 MG/0.4 ML Syringe SUBCUT SCH (21:00)
[2017-07-19] MEDS: Ibuprofen 600 MG Tab PO PRN (23:54)
[2017-07-20] MEDS: Acetaminophen 325 MG Tab PO PRN (02:58)
[2017-07-20] MEDS: Sodium Chloride 0.9% 1,000 ML IV SCH ×2 (02:59→13:30)
[2017-07-20] MEDS: Ibuprofen 600 MG Tab PO PRN (06:19)
[2017-07-20] MEDS: Omeprazole 20 MG Cap.CR PO SCH (06:19)
[2017-07-20] MEDS: Piperacillin/Tazobactam/Dext 3.375 GM in Premix Bag 1 BAG IV SCH ×4 (06:29→23:19)
[2017-07-20 07:27] LABS: CHLORIDE,CL 111 mmol/L (98-115); SODIUM,NA 145 mmol/L (136-145)
[2017-07-20] MEDS ORDERED: Vancomycin 1 GM SDV ONE (07:44)
[2017-07-20] MEDS: Aspirin 81 MG Tab.EC PO SCH (07:58)
--- NOTE | 2017-07-20 08:55 | PCM.PN ---
- General Info Date of Service: 07/20/17 Admission Dx/Problem (Free Text): Febrile neutropenia in the setting of chemotherapy. - Review of Systems Systems Review Comment:: Jadiel is seen today on inpatient rounds. He was admitted on 07/18/17 with neutropenic fever in the setting of chemotherapy. His temp spiked to 104 in the hospital the evening of admission but it has been over 24h ours without fever. He feels "Just fine". He has no ill symptoms. He has been on vancomycin and zosyn for prophylaxis. His counts are improving. He is anxious to go home. He had some loose stool on Thursday and Thursday but has had 2 BM's since and they have been "much better". No urinary or respiratory concerns. He denies any pain. - Patient Data Vitals - Most Recent: Last Vital Signs Temp 98.0 F 07/20/17 07:00 Pulse 66 07/20/17 07:00 Resp 16 07/20/17 07:00 BP 99/60 07/20/17 07:00 Pulse Ox 95 07/20/17 07:00 Weight - Most Recent: 295 lb 1.6 oz I&O - Last 24 Hours: Intake & Output 07/19/17 07/20/17 07/20/17 22:59 06:59 14:59 Intake Total 1665 1080 Output Total 300 Balance 1365 1080 Lab Results Last 24 Hours: Laboratory Results - last 24 hr 07/20/17 07/20/17 07/20/17 Range/Units 06:30 06:30 06:30 WBC 1.4 L* (5.0-10.0) 10^3/uL RBC 2.62 L (4.50-6.00) 10^6/uL Hgb 8.5 L (13.0-17.0) g/dL Hct 24.4 L (40.0-52.0) % MCV 93.0 H (82.0-92.0) fL MCH 32.3 H (27.0-31.0) pg MCHC 34.7 (32.0-36.0) g/dL RDW 15.9 H (11.5-14.5) % Plt Count 86 L (150-300) 10^3/uL MPV 8.3 (7.4-10.4) fL Neut % (Auto) 49.7 L (50.0-70.0) % Lymph % (Auto) 28.5 (20.0-40.0) % [place] % (Auto) 15.4 H (2.0-8.0) % Eos % (Auto) 5.5 H (1.0-3.0) % Baso % (Auto) 0.9 (0.0-1.0) % Neut # (Auto) 0.7 L (2.5-7.0) 10^3/uL Lymph # (Auto) 0.4 L (1.0-4.0) 10^3/uL [place] # (Auto) 0.2 (0.1-0.8) 10^3/uL Eos # (Auto) 0.1 (0.1-0.3) 10^3/uL Baso # (Auto) 0.0 (0.0-0.1) 10^3/uL Sodium 145 (136-145) mmol/L Potassium 3.6 (3.3-5.3) mmol/L Chloride 111 (98-115) mmol/L Carbon Dioxide 25.4 (21.0-32.0) mmol/L BUN 11 (6-25) mg/dL Creatinine 0.89 (0.51-1.17) mg/dL Est Cr Clr Drug Dosing 79.74 mL/min Estimated GFR (MDRD) > 60 mL/min Glucose 111 H (70-110) mg/dL Calcium 7.9 L (8.7-10.3) mg/dL Total Bilirubin 0.7 (0.2-1.0) mg/dL AST 14 L (15-37) U/L ALT 29 (12-78) U/L Alkaline Phosphatase 59 (46-116) IU/L Total Protein 5.5 L (6.4-8.2) g/dL Albumin 2.61 L (3.00-4.80) g/dL Vancomycin Trough 12.3 (10-20) ug/mL Med Orders - Current: Current Medications Acetaminophen (Tylenol) 650 mg PO Q4H PRN PRN Reason: Pain (Mild 1-3)/fever Last Admin: 07/20/17 02:58 Dose: 650 mg Aspirin (Halfprin) 81 mg PO BRK [facility] Last Admin: 07/20/17 07:58 Dose: 81 mg Cetirizine HCl (Zyrtec) 10 mg PO DAILY [facility] Last Admin: 07/19/17 08:17 Dose: 10 mg Diphenhydramine HCl (Benadryl) 50 mg PO BEDTIME [facility] Last Admin: 07/19/17 20:21 Dose: 50 mg Enoxaparin Sodium (Lovenox) 40 mg SUBCUT BEDTIME [facility] Last Admin: 07/19/17 20:21 Dose: 40 mg Sodium Chloride (Normal Saline) 1,000 mls @ 125 mls/hr IV ASDIRECTED [facility] Last Admin: 07/20/17 02:59 Dose: 125 mls/hr Vancomycin HCl 1.5 gm/ Sodium (Chloride) 250 mls @ 167 mls/hr IV Q12H [facility] Last Admin: 07/20/17 07:57 Dose: 167 mls/hr Piperacillin/Tazobactam/ (Dextrose 3.375 gm/ Premix) 50 mls @ 100 mls/hr IV Q6H [facility] Last Admin: 07/20/17 06:29 Dose: 100 mls/hr Ibuprofen (Motrin) 600 mg PO Q6H PRN PRN Reason: Pain (mild 1-3) Last Admin: 07/20/17 06:19 Dose: 600 mg Omeprazole (Omeprazole) 20 mg PO DAILY@0700 [facility] Last Admin: 07/20/17 06:19 Dose: 20 mg Ondansetron HCl (Zofran) 4 mg IVPUSH Q6H PRN PRN Reason: Nausea/Vomiting Prochlorperazine Maleate (Compazine) 10 mg PO QID PRN PRN Reason: Nausea Senna/Docusate Sodium (Senna Plus) 1 tab PO DAILY [facility] Last Admin: 07/19/17 08:17 Dose: 1 tab Simvastatin (Zocor) 10 mg PO BEDTIME [facility] Last Admin: 07/19/17 20:22 Dose: 10 mg Sodium Chloride (Syrex Flush) 5 ml FLUSH Q8HR PRN PRN Reason: Keep Vein Open Vancomycin HCl (Pharmacy To Dose - Vancomycin) 1 dose .XX ASDIRECTED [facility] Venlafaxine HCl (Effexor Xr) 150 mg PO DAILY [facility] Last Admin: 07/19/17 08:17 Dose: 150 mg Zolpidem Tartrate (Ambien) 10 mg PO BEDTIME PRN PRN Reason: Sleep Discontinued Medications Acetaminophen (Tylenol Extra Strength) 1,000 mg PO ONETIME ONE Stop: 07/18/17 13:11 Last Admin: 07/18/17 13:42 Dose: 1,000 mg Enoxaparin Sodium (Lovenox) 40 mg SUBCUT BEDTIME [facility] Sodium Chloride (Normal Saline) 1,000 mls @ 999 mls/hr IV .BOLUS ONE Stop: 07/18/17 14:09 Last Admin: 07/18/17 14:04 Dose: 999 mls/hr Piperacillin Sod/Tazobactam (Sod 4.5 gm/ Sodium Chloride) 100 mls @ 200 mls/hr IV Q6H [facility] Last Admin: 07/18/17 18:22 Dose: Not Given Vancomycin HCl 1 gm/ Sodium (Chloride) 250 mls @ 167 mls/hr IV Q24H [facility] Last Admin: 07/18/17 18:22 Dose: Not Given Piperacillin Sod/Tazobactam (Sod 4.5 gm/ Sodium Chloride) 100 mls @ 200 mls/hr IV Q6H [facility] Last Admin: 07/18/17 18:22 Dose: Not Given Vancomycin HCl 1 gm/ Sodium (Chloride) 250 mls @ 167 mls/hr IV Q24H [facility] Last Admin: 07/18/17 18:22 Dose: Not Given Piperacillin Sod/Tazobactam (Sod 3.375 gm/ Sodium Chloride) 50 mls @ 100 mls/ hr IV Q6H [facility] Last Admin: 07/18/17 23:08 Dose: 100 mls/hr Non-Formulary Medication (Prednisone [Prednisone]) 100 mg PO ASDIRECTED [facility] Sodium Chloride (Syrex Flush) 5 ml FLUSH Q8HR PRN PRN Reason: Keep Vein Open - Exam General: Alert, Oriented, Cooperative, No Acute Distress Lungs: Clear to Auscultation, Normal Respiratory Effort Cardiovascular: Regular Rate, Regular Rhythm, No Murmurs - Problem List & Annotations (1) Neutropenia SNOMED Code(s): 246642588 Code(s): D70.9 - NEUTROPENIA, UNSPECIFIED Status: Acute Current Visit: Yes Qualifiers: Neutropenia type: unspecified Qualified Code(s): D70.9 - Neutropenia, unspecified (2) Fever SNOMED Code(s): 000110485 Code(s): R50.9 - FEVER, UNSPECIFIED Status: Acute Current Visit: No Qualifiers: Fever type: unspecified Qualified Code(s): R50.9 - Fever, unspecified (3) Lymphoma SNOMED Code(s): 704752900 Code(s): C85.90 - NON-HODGKIN LYMPHOMA, UNSPECIFIED, UNSPECIFIED SITE Status: Acute Current Visit: No Qualifiers: Lymphoma type: non-Hodgkin - Problem List Review Problem List Initiated/Reviewed/Updated: Yes - Assessment Assessment:: Neutropenia with fever. Lymphoma. - Plan Plan:: Neutropenia with fever. Continue with vancomycin and zosyn. Will be hospitalized until ANC is 1.5. Will discharge on levofloxacin 750 mg PO daily for a total of 7 days of antibiotics counting his inpatient days. Lymphoma. This was his last round of chemotherapy. He has follow-up's in a month with [facility] and with [facility] in [place].
[2017-07-20] MEDS: Cetirizine 10 MG Tab PO SCH (09:22)
[2017-07-20] MEDS: Venlafaxine 150 MG Cap.ER PO SCH (09:22)
[2017-07-20] MEDS: diphenhydrAMINE 25 MG Cap PO SCH (20:12)
[2017-07-20] MEDS: Simvastatin 10 MG Tab PO SCH (20:12)
[2017-07-20] MEDS: Enoxaparin 40 MG/0.4 ML Syringe SUBCUT SCH (20:12)
[2017-07-21] MEDS: Sodium Chloride 0.9% 1,000 ML IV SCH (01:09)
[2017-07-21] MEDS: Piperacillin/Tazobactam/Dext 3.375 GM in Premix Bag 1 BAG IV SCH ×3 (05:43→18:00)
[2017-07-21] MEDS: Omeprazole 20 MG Cap.CR PO SCH (06:25)
[2017-07-21 08:31] LABS: CHLORIDE,CL 110 mmol/L (98-115); SODIUM,NA 143 mmol/L (136-145)
[2017-07-21] MEDS: Cetirizine 10 MG Tab PO SCH (08:35)
[2017-07-21] MEDS: Aspirin 81 MG Tab.EC PO SCH (08:35)
[2017-07-21] MEDS: Venlafaxine 150 MG Cap.ER PO SCH (08:35)
--- NOTE | 2017-07-21 09:05 | PCM.PN ---
- General Info Date of Service: 07/21/17 Admission Dx/Problem (Free Text): Febrile neutropenia in the setting of chemotherapy. - Review of Systems Systems Review Comment:: Jadiel is seen today on inpatient rounds. He states he didn't sleep well last night as he got up to the bathroom multiple times to urinate, due to the IVF's he has been receiving. He has no concerns today. He is anxious to go home. - Patient Data Vitals - Most Recent: Last Vital Signs Temp 98.0 F 07/21/17 06:45 Pulse 68 07/21/17 06:45 Resp 20 07/21/17 06:45 BP 103/55 L 07/21/17 06:45 Pulse Ox 94 L 07/21/17 07:00 Weight - Most Recent: 295 lb 1.6 oz I&O - Last 24 Hours: Intake & Output 07/20/17 07/21/17 07/21/17 22:59 06:59 14:59 Intake Total 825 2239 Balance 825 2239 Lab Results Last 24 Hours: Laboratory Results - last 24 hr 07/21/17 07/21/17 Range/Units 07:00 07:00 WBC 1.8 L* (5.0-10.0) 10^3/uL RBC 2.57 L (4.50-6.00) 10^6/uL Hgb 8.1 L (13.0-17.0) g/dL Hct 23.9 L (40.0-52.0) % MCV 92.9 H (82.0-92.0) fL MCH 31.5 H (27.0-31.0) pg MCHC 33.8 (32.0-36.0) g/dL RDW 16.3 H (11.5-14.5) % Plt Count 97 L (150-300) 10^3/uL MPV 8.3 (7.4-10.4) fL Neut % (Auto) 51.9 (50.0-70.0) % Lymph % (Auto) 22.0 (20.0-40.0) % [place] % (Auto) 19.7 H (2.0-8.0) % Eos % (Auto) 4.1 H (1.0-3.0) % Baso % (Auto) 2.3 H (0.0-1.0) % Neut # (Auto) 0.9 L (2.5-7.0) 10^3/uL Lymph # (Auto) 0.4 L (1.0-4.0) 10^3/uL [place] # (Auto) 0.4 (0.1-0.8) 10^3/uL Eos # (Auto) 0.1 (0.1-0.3) 10^3/uL Baso # (Auto) 0.0 (0.0-0.1) 10^3/uL Sodium 143 (136-145) mmol/L Potassium 3.4 (3.3-5.3) mmol/L Chloride 110 (98-115) mmol/L Carbon Dioxide 25.4 (21.0-32.0) mmol/L BUN 7 (6-25) mg/dL Creatinine 0.84 (0.51-1.17) mg/dL Est Cr Clr Drug Dosing 84.49 mL/min Estimated GFR (MDRD) > 60 mL/min Glucose 103 (70-110) mg/dL Calcium 7.8 L (8.7-10.3) mg/dL Med Orders - Current: Current Medications Acetaminophen (Tylenol) 650 mg PO Q4H PRN PRN Reason: Pain (Mild 1-3)/fever Last Admin: 07/20/17 02:58 Dose: 650 mg Aspirin (Halfprin) 81 mg PO BRK [facility] Last Admin: 07/21/17 08:35 Dose: 81 mg Cetirizine HCl (Zyrtec) 10 mg PO DAILY [facility] Last Admin: 07/21/17 08:35 Dose: 10 mg Diphenhydramine HCl (Benadryl) 50 mg PO BEDTIME [facility] Last Admin: 07/20/17 20:12 Dose: 50 mg Enoxaparin Sodium (Lovenox) 40 mg SUBCUT BEDTIME [facility] Last Admin: 07/20/17 20:12 Dose: 40 mg Piperacillin/Tazobactam/ (Dextrose 3.375 gm/ Premix) 50 mls @ 100 mls/hr IV Q6H [facility] Last Admin: 07/21/17 05:43 Dose: 100 mls/hr Vancomycin HCl 1.5 gm/ Sodium (Chloride) 280 mls @ 112 mls/hr IV Q12H [facility] Last Admin: 07/21/17 06:28 Dose: 112 mls/hr Ibuprofen (Motrin) 600 mg PO Q6H PRN PRN Reason: Pain (mild 1-3) Last Admin: 07/20/17 06:19 Dose: 600 mg Omeprazole (Omeprazole) 20 mg PO DAILY@0700 [facility] Last Admin: 07/21/17 06:25 Dose: 20 mg Ondansetron HCl (Zofran) 4 mg IVPUSH Q6H PRN PRN Reason: Nausea/Vomiting Prochlorperazine Maleate (Compazine) 10 mg PO QID PRN PRN Reason: Nausea Senna/Docusate Sodium (Senna Plus) 1 tab PO DAILY [facility] Last Admin: 07/21/17 08:35 Dose: 1 tab Simvastatin (Zocor) 10 mg PO BEDTIME [facility] Last Admin: 07/20/17 20:12 Dose: 10 mg Sodium Chloride (Syrex Flush) 5 ml FLUSH Q8HR PRN PRN Reason: Keep Vein Open Vancomycin HCl (Pharmacy To Dose - Vancomycin) 1 dose .XX ASDIRECTED [facility] Venlafaxine HCl (Effexor Xr) 150 mg PO DAILY [facility] Last Admin: 07/21/17 08:35 Dose: 150 mg Zolpidem Tartrate (Ambien) 10 mg PO BEDTIME PRN PRN Reason: Sleep Discontinued Medications Acetaminophen (Tylenol Extra Strength) 1,000 mg PO ONETIME ONE Stop: 07/18/17 13:11 Last Admin: 07/18/17 13:42 Dose: 1,000 mg Enoxaparin Sodium (Lovenox) 40 mg SUBCUT BEDTIME [facility] Sodium Chloride (Normal Saline) 1,000 mls @ 999 mls/hr IV .BOLUS ONE Stop: 07/18/17 14:09 Last Admin: 07/18/17 14:04 Dose: 999 mls/hr Sodium Chloride (Normal Saline) 1,000 mls @ 125 mls/hr IV ASDIRECTED [facility] Last Admin: 07/21/17 01:09 Dose: 125 mls/hr Piperacillin Sod/Tazobactam (Sod 4.5 gm/ Sodium Chloride) 100 mls @ 200 mls/hr IV Q6H [facility] Last Admin: 07/18/17 18:22 Dose: Not Given Vancomycin HCl 1 gm/ Sodium (Chloride) 250 mls @ 167 mls/hr IV Q24H [facility] Last Admin: 07/18/17 18:22 Dose: Not Given Piperacillin Sod/Tazobactam (Sod 4.5 gm/ Sodium Chloride) 100 mls @ 200 mls/hr IV Q6H [facility] Last Admin: 07/18/17 18:22 Dose: Not Given Vancomycin HCl 1 gm/ Sodium (Chloride) 250 mls @ 167 mls/hr IV Q24H [facility] Last Admin: 07/18/17 18:22 Dose: Not Given Piperacillin Sod/Tazobactam (Sod 3.375 gm/ Sodium Chloride) 50 mls @ 100 mls/ hr IV Q6H [facility] Last Admin: 07/18/17 23:08 Dose: 100 mls/hr Vancomycin HCl 1.5 gm/ Sodium (Chloride) 250 mls @ 167 mls/hr IV Q12H [facility] Last Admin: 07/20/17 07:57 Dose: 167 mls/hr Vancomycin HCl 1.5 gm/ Sodium (Chloride) 280 mls @ 112 mls/hr IV Q12H [facility] Last Admin: 07/20/17 13:24 Dose: Not Given Non-Formulary Medication (Prednisone [Prednisone]) 100 mg PO ASDIRECTED [facility] Sodium Chloride (Syrex Flush) 5 ml FLUSH Q8HR PRN PRN Reason: Keep Vein Open - Exam General: Alert, Oriented, Cooperative, No Acute Distress Lungs: Clear to Auscultation, Normal Respiratory Effort Cardiovascular: Regular Rate, Regular Rhythm, No Murmurs GI/Abdominal Exam: Normal Bowel Sounds - Problem List & Annotations (1) Neutropenia SNOMED Code(s): 604451180 Code(s): D70.9 - NEUTROPENIA, UNSPECIFIED Status: Acute Current Visit: Yes Qualifiers: Neutropenia type: unspecified Qualified Code(s): D70.9 - Neutropenia, unspecified (2) Fever SNOMED Code(s): 570851743 Code(s): R50.9 - FEVER, UNSPECIFIED Status: Acute Current Visit: No Qualifiers: Fever type: unspecified Qualified Code(s): R50.9 - Fever, unspecified (3) Lymphoma SNOMED Code(s): 586206974 Code(s): C85.90 - NON-HODGKIN LYMPHOMA, UNSPECIFIED, UNSPECIFIED SITE Status: Acute Current Visit: No Qualifiers: Lymphoma type: non-Hodgkin - Problem List Review Problem List Initiated/Reviewed/Updated: Yes - My Orders Last 24 Hours: My Active Orders 07/21/17 18:30 VANCOMYCIN TROUGH [CHEM] Routine 07/22/17 05:11 BMP [BASIC METABOLIC PANEL,BMP] [CHEM] AM CBC WITH AUTO DIFF [HEME] AM 07/23/17 05:11 BMP [BASIC METABOLIC PANEL,BMP] [CHEM] AM CBC WITH AUTO DIFF [HEME] AM 07/24/17 05:11 BMP [BASIC METABOLIC PANEL,BMP] [CHEM] AM CBC WITH AUTO DIFF [HEME] AM - Assessment Assessment:: Neutropenia with fever. Lymphoma. - Plan Plan:: Neutropenia with fever. Continue with vancomycin and zosyn. Will be hospitalized until ANC is 1.5. Will discharge on levofloxacin 750 mg PO daily for a total of 7 days of antibiotics counting his inpatient days. Lymphoma. This was his last round of chemotherapy. He has follow-up's in a month with [facility] and with [facility] in [place]. Discontinue IVF's.
[2017-07-21] MEDS ORDERED: Sodium Chloride 0.9% 20 ML SDV FLUSH SCH (13:00)
[2017-07-21] MEDS: diphenhydrAMINE 25 MG Cap PO SCH (20:38)
[2017-07-21] MEDS: Simvastatin 10 MG Tab PO SCH (20:38)
[2017-07-21] MEDS: Enoxaparin 40 MG/0.4 ML Syringe SUBCUT SCH (20:39)
[2017-07-22] MEDS: Piperacillin/Tazobactam/Dext 3.375 GM in Premix Bag 1 BAG IV SCH ×2 (00:07→05:45)
[2017-07-22 06:20] VITALS: BP 109/65
[2017-07-22] MEDS: Omeprazole 20 MG Cap.CR PO SCH (06:47)
[2017-07-22 08:06] LABS: CHLORIDE,CL 110 mmol/L (98-115); SODIUM,NA 146 mmol/L (136-145)
[2017-07-22] MEDS: Cetirizine 10 MG Tab PO SCH (08:28)
[2017-07-22] MEDS: Venlafaxine 150 MG Cap.ER PO SCH (08:28)
[2017-07-22] MEDS: Aspirin 81 MG Tab.EC PO SCH (08:28)
--- NOTE | 2017-07-22 08:47 | PCM.DCSUM1 ---
Discharge Summary - Hospital Course Free Text/Narrative:: Jadiel is being discharged from an inpatient stay from 07/18/17 - 07/22/17 for neutropenic fever. He has had negative blood and urine cultures x 3 days and has been afebrile for 48 hours without any medications. His WBC on admission was 0.6 and at discharge is 2.3 with an ANC of 1.2. Hemoglobin is stable and WBC and platelets are improving. He feels great and is ready to leave. He was treated with vancomycin and zosyn inpatient, he received a total of 5 days of these meds and will go home with levofloxacin 750 mg daily x 2 days to complete 7 days of antibiotics. - Discharge Data Discharge Date: 07/22/17 Discharge Disposition: Home, Self-Care 01 Condition: Good - Discharge Diagnosis/Problem(s) (1) Neutropenia SNOMED Code(s): 332916670 ICD Code: D70.9 - NEUTROPENIA, UNSPECIFIED Status: Acute Current Visit: Yes Qualifiers: Neutropenia type: unspecified Qualified Code(s): D70.9 - Neutropenia, unspecified (2) Fever SNOMED Code(s): 423474100 ICD Code: R50.9 - FEVER, UNSPECIFIED Status: Acute Current Visit: No Qualifiers: Fever type: unspecified Qualified Code(s): R50.9 - Fever, unspecified (3) Lymphoma SNOMED Code(s): 016295603 ICD Code: C85.90 - NON-HODGKIN LYMPHOMA, UNSPECIFIED, UNSPECIFIED SITE Status: Acute Current Visit: No Qualifiers: Lymphoma type: non-Hodgkin - Patient Instructions Diet: Regular Diet as Tolerated Activity: As Tolerated Notify Provider of: Fever - Discharge Plan Prescriptions/Med Rec: Levofloxacin [IJD: Levofloxacin] 750 mg PO DAILY #2 tab Home Medications: Home Meds Enoxaparin [Lovenox] 40 mg SUBCUT BEDTIME 04/18/17 [History] Omeprazole 20 mg PO ACBREAKFAST 04/18/17 [History] Prochlorperazine Maleate [Compazine] 10 mg PO QID PRN 04/18/17 [History] Sennosides/Docusate Sodium [Senna-S] 1 tab PO DAILY 04/18/17 [History] Simvastatin [Zocor] 10 mg PO BEDTIME 04/18/17 [History] Venlafaxine [Effexor XR] 150 mg PO DAILY 04/18/17 [History] Aspirin [Halfprin] 81 mg PO BRK 05/14/17 [History] Cetirizine [ZyrTEC] 10 mg PO DAILY 05/14/17 [History] Zolpidem [Ambien] 10 mg PO BEDTIME PRN 05/14/17 [History] diphenhydrAMINE [Benadryl] 50 mg PO BEDTIME 05/14/17 [History] Granisetron HCl 1 mg PO ASDIRECTED PRN 06/24/17 [History] Pegfilgrastim [Neulasta] 6 mg SQ ASDIRECTED 06/24/17 [History] predniSONE [Prednisone] 100 mg PO ASDIRECTED 06/24/17 [History] Levofloxacin [IJD: Levofloxacin] 750 mg PO DAILY #2 tab 07/22/17 [Rx] - Discharge Summary/Plan Comment DC Time >30 min.: No - General Info Date of Service: 07/22/17 Admission Dx/Problem (Free Text: Febrile neutropenia in the setting of chemotherapy. - Review of Systems Systems Review Comment: Jadiel is feeling well today, he is ready to go home. - Patient Data Vitals - Most Recent: Last Vital Signs Temp 97.0 F 07/22/17 06:19 Pulse 63 07/22/17 06:19 Resp 16 07/22/17 06:19 BP 109/65 07/22/17 06:19 Pulse Ox 97 07/22/17 06:19 Weight - Most Recent: 295 lb 1.6 oz I&O - Last 24 hours: Intake & Output 07/21/17 07/22/17 07/22/17 22:59 06:59 14:59 Intake Total 980 205 Balance 980 205 Lab Results - Last 24 hrs: Laboratory Results - last 24 hr 07/21/17 07/21/17 07/22/17 Range/Units 07:00 18:40 07:30 WBC 1.8 L* 2.3 L (5.0-10.0) 10^3/uL RBC 2.57 L 2.77 L (4.50-6.00) 10^6/uL Hgb 8.1 L 8.4 L (13.0-17.0) g/dL Hct 23.9 L 26.0 L (40.0-52.0) % MCV 92.9 H 94.1 H (82.0-92.0) fL MCH 31.5 H 30.4 (27.0-31.0) pg MCHC 33.8 32.3 (32.0-36.0) g/dL RDW 16.3 H 16.2 H (11.5-14.5) % Plt Count 97 L 120 L (150-300) 10^3/uL MPV 8.3 7.2 L (7.4-10.4) fL Neut % (Auto) 51.9 53.4 (50.0-70.0) % Lymph % (Auto) 22.0 23.3 (20.0-40.0) % [place] % (Auto) 19.7 H 17.0 H (2.0-8.0) % Eos % (Auto) 4.1 H 3.8 H (1.0-3.0) % Baso % (Auto) 2.3 H 2.5 H (0.0-1.0) % Neut # (Auto) 0.9 L 1.2 L (2.5-7.0) 10^3/uL Lymph # (Auto) 0.4 L 0.5 L (1.0-4.0) 10^3/uL [place] # (Auto) 0.4 0.4 (0.1-0.8) 10^3/uL Eos # (Auto) 0.1 0.1 (0.1-0.3) 10^3/uL Baso # (Auto) 0.0 0.1 (0.0-0.1) 10^3/uL Sodium (136-145) mmol/L Potassium (3.3-5.3) mmol/L Chloride (98-115) mmol/L Carbon Dioxide (21.0-32.0) mmol/L BUN (6-25) mg/dL Creatinine (0.51-1.17) mg/dL Est Cr Clr Drug Dosing mL/min Estimated GFR (MDRD) mL/min Glucose (70-110) mg/dL Calcium (8.7-10.3) mg/dL Vancomycin Trough 12.3 (10-20) ug/mL 07/22/17 Range/Units 07:30 WBC (5.0-10.0) 10^3/uL RBC (4.50-6.00) 10^6/uL Hgb (13.0-17.0) g/dL Hct (40.0-52.0) % MCV (82.0-92.0) fL MCH (27.0-31.0) pg MCHC (32.0-36.0) g/dL RDW (11.5-14.5) % Plt Count (150-300) 10^3/uL MPV (7.4-10.4) fL Neut % (Auto) (50.0-70.0) % Lymph % (Auto) (20.0-40.0) % [place] % (Auto) (2.0-8.0) % Eos % (Auto) (1.0-3.0) % Baso % (Auto) (0.0-1.0) % Neut # (Auto) (2.5-7.0) 10^3/uL Lymph # (Auto) (1.0-4.0) 10^3/uL [place] # (Auto) (0.1-0.8) 10^3/uL Eos # (Auto) (0.1-0.3) 10^3/uL Baso # (Auto) (0.0-0.1) 10^3/uL Sodium 146 H (136-145) mmol/L Potassium 3.6 (3.3-5.3) mmol/L Chloride 110 (98-115) mmol/L Carbon Dioxide 26.8 (21.0-32.0) mmol/L BUN 8 (6-25) mg/dL Creatinine 0.91 (0.51-1.17) mg/dL Est Cr Clr Drug Dosing 77.99 mL/min Estimated GFR (MDRD) > 60 mL/min Glucose 111 H (70-110) mg/dL Calcium 8.2 L (8.7-10.3) mg/dL Vancomycin Trough (10-20) ug/mL Med Orders - Current: Current Medications Acetaminophen (Tylenol) 650 mg PO Q4H PRN PRN Reason: Pain (Mild 1-3)/fever Last Admin: 07/20/17 02:58 Dose: 650 mg Aspirin (Halfprin) 81 mg PO BRK [facility] Last Admin: 07/22/17 08:28 Dose: 81 mg Cetirizine HCl (Zyrtec) 10 mg PO DAILY [facility] Last Admin: 07/22/17 08:28 Dose: 10 mg Diphenhydramine HCl (Benadryl) 50 mg PO BEDTIME [facility] Last Admin: 07/21/17 20:38 Dose: 50 mg Enoxaparin Sodium (Lovenox) 40 mg SUBCUT BEDTIME [facility] Last Admin: 07/21/17 20:39 Dose: 40 mg Heparin Sodium (Porcine) (Heparin Lock Flush 100 Units/Ml) 500 units FLUSH ASDIRECTED PRN PRN Reason: port flush Piperacillin/Tazobactam/ (Dextrose 3.375 gm/ Premix) 50 mls @ 100 mls/hr IV Q6H [facility] Last Admin: 07/22/17 05:45 Dose: 100 mls/hr Vancomycin HCl 1.5 gm/ Sodium (Chloride) 280 mls @ 112 mls/hr IV Q12H [facility] Last Admin: 07/22/17 06:45 Dose: 112 mls/hr Ibuprofen (Motrin) 600 mg PO Q6H PRN PRN Reason: Pain (mild 1-3) Last Admin: 07/20/17 06:19 Dose: 600 mg Omeprazole (Omeprazole) 20 mg PO DAILY@0700 [facility] Last Admin: 07/22/17 06:47 Dose: 20 mg Ondansetron HCl (Zofran) 4 mg IVPUSH Q6H PRN PRN Reason: Nausea/Vomiting Prochlorperazine Maleate (Compazine) 10 mg PO QID PRN PRN Reason: Nausea Senna/Docusate Sodium (Senna Plus) 1 tab PO DAILY [facility] Last Admin: 07/22/17 08:28 Dose: 1 tab Simvastatin (Zocor) 10 mg PO BEDTIME [facility] Last Admin: 07/21/17 20:38 Dose: 10 mg Sodium Chloride (Normal Saline) 20 ml FLUSH ASDIRECTED [facility] Vancomycin HCl (Pharmacy To Dose - Vancomycin) 1 dose .XX ASDIRECTED [facility] Venlafaxine HCl (Effexor Xr) 150 mg PO DAILY [facility] Last Admin: 07/22/17 08:28 Dose: 150 mg Zolpidem Tartrate (Ambien) 10 mg PO BEDTIME PRN PRN Reason: Sleep Last Admin: 07/21/17 20:38 Dose: 10 mg Discontinued Medications Acetaminophen (Tylenol Extra Strength) 1,000 mg PO ONETIME ONE Stop: 07/18/17 13:11 Last Admin: 07/18/17 13:42 Dose: 1,000 mg Enoxaparin Sodium (Lovenox) 40 mg SUBCUT BEDTIME [facility] Sodium Chloride (Normal Saline) 1,000 mls @ 999 mls/hr IV .BOLUS ONE Stop: 07/18/17 14:09 Last Admin: 07/18/17 14:04 Dose: 999 mls/hr Sodium Chloride (Normal Saline) 1,000 mls @ 125 mls/hr IV ASDIRECTED [facility] Last Admin: 07/21/17 01:09 Dose: 125 mls/hr Piperacillin Sod/Tazobactam (Sod 4.5 gm/ Sodium Chloride) 100 mls @ 200 mls/hr IV Q6H [facility] Last Admin: 07/18/17 18:22 Dose: Not Given Vancomycin HCl 1 gm/ Sodium (Chloride) 250 mls @ 167 mls/hr IV Q24H [facility] Last Admin: 07/18/17 18:22 Dose: Not Given Piperacillin Sod/Tazobactam (Sod 4.5 gm/ Sodium Chloride) 100 mls @ 200 mls/hr IV Q6H [facility] Last Admin: 07/18/17 18:22 Dose: Not Given Vancomycin HCl 1 gm/ Sodium (Chloride) 250 mls @ 167 mls/hr IV Q24H [facility] Last Admin: 07/18/17 18:22 Dose: Not Given Piperacillin Sod/Tazobactam (Sod 3.375 gm/ Sodium Chloride) 50 mls @ 100 mls/ hr IV Q6H [facility] Last Admin: 07/18/17 23:08 Dose: 100 mls/hr Vancomycin HCl 1.5 gm/ Sodium (Chloride) 250 mls @ 167 mls/hr IV Q12H [facility] Last Admin: 07/20/17 07:57 Dose: 167 mls/hr Vancomycin HCl 1.5 gm/ Sodium (Chloride) 280 mls @ 112 mls/hr IV Q12H [facility] Last Admin: 07/20/17 13:24 Dose: Not Given Non-Formulary Medication (Prednisone [Prednisone]) 100 mg PO ASDIRECTED [facility] Sodium Chloride (Syrex Flush) 5 ml FLUSH Q8HR PRN PRN Reason: Keep Vein Open - Exam General: Reports: Alert, Oriented, Cooperative, No Acute Distress Lungs: Reports: Clear to Auscultation, Normal Respiratory Effort Cardiovascular: Reports: Regular Rate, Regular Rhythm, No Murmurs *Q Meaningful Use (DIS) - VTE *Q VTE Criteria *Q: - Stroke *Q Stroke Criteria *Q: - AMI *Q AMI Criteria *Q:
== END 2017-07-22 10:22 | disposition home or self-care (01) | DRG 809 ==
LOC: KA.ED 12:31 → KA.MS 15:30
PROVIDERS: ADMIT Physician Assistant Medical; ATTEND Internal Medicine
DX: R50.9 Fever, unspecified (principal); D70.9 Neutropenia, unspecified; D70.1 Agranulocytosis secondary to cancer chemotherapy; C85.90 Non-Hodgkin lymphoma, unspecified, unspecified site; R50.81 Fever presenting with conditions classified elsewhere; E78.00 Pure hypercholesterolemia, unspecified; F41.8 Other specified anxiety disorders; Z87.891 Personal history of nicotine dependence; Z79.899 Other long term (current) drug therapy; Z88.8 Allergy status to other drugs, medicaments and biological substances; Z86.718 Personal history of other venous thrombosis and embolism
CPT/HCPCS: 36415; 71020; 80053; 81001; 83605; 85025; 87040 ×2; 87086; 99285; A9270; J7030; 80048; 80202; J1642; J1650; J2543; J3370; J7050

== ENCOUNTER 2017-10-09 17:45 | Inpatient (IN) | payer MEDICARE, BC ==
[2017-10-09] MEDS ORDERED: Acetaminophen 500 MG Tab ONE (18:38)
--- NOTE | 2017-10-09 18:41 | EDM.PDOC ---
ED HPI GENERAL MEDICAL PROBLEM - General Chief Complaint: Fever Stated Complaint: FEVERS Time Seen by Provider: 10/09/17 18:32 Source of Information: Reports: Patient History Limitations: Reports: No Limitations - History of Present Illness INITIAL COMMENTS - FREE TEXT/NARRATIVE: PATIENT IS A 72-YEAR-OLD GENTLEMAN WHO PRESENTS TO THE EMERGENCY DEPARTMENT THIS EVENING WITH A COMPLAINT OF BODY ACHES AND FEVER. PATIENT STATES HE HAS HAD BODY ACHES AND FELT FATIGUED OVER LAST FEW DAYS AND UNDERWENT NEUPOGEN SUBCUTANEOUS INJECTION AT 4 P.M. THIS AFTERNOON. SYMPTOMS WORSENED AND PATIENT DECIDED TO PRESENT TO THE EMERGENCY DEPARTMENT. PATIENT DENIES CHEST PAIN, SHORTNESS OF BREATH, HEADACHE, NAUSEA, VOMITING, DIARRHEA. Onset: Today Duration: Hour(s): Quality: Reports: Ache Severity: Mild Improves with: Reports: None Worsens with: Reports: None Associated Symptoms: Reports: Fever/Chills. Denies: Chest Pain, Cough, Headaches, Nausea/Vomiting, Rash, Shortness of Breath - Related Data Allergies Allergy/AdvReac Type Severity Reaction Status Date / Time cefazolin Allergy Rash Verified 10/09/17 18:03 bednamustine Allergy Rash Uncoded 10/09/17 18:03 Home Meds: Home Meds Omeprazole 20 mg PO ACBREAKFAST 04/18/17 [History] Sennosides/Docusate Sodium [Senna-S] 1 tab PO DAILY PRN 04/18/17 [History] Simvastatin [Zocor] 10 mg PO BEDTIME 04/18/17 [History] Venlafaxine [Effexor XR] 150 mg PO DAILY 04/18/17 [History] Zolpidem [Ambien] 10 mg PO BEDTIME PRN 05/14/17 [History] Enoxaparin Sodium [Lovenox] 135 mg SUBCUT BID 09/02/17 [History] Ondansetron [Zofran Odt] 8 mg PO TID PRN 09/02/17 [History] Cholecalciferol (Vitamin D3) [Vitamin D] 50,000 unit PO WEEKLY 10/09/17 [History ] Multivit with Calcium,Iron,Min [Essential Daily] 1 tab PO DAILY 10/09/17 [ History] Past Medical History HEENT History: Reports: Impaired Vision Cardiovascular History: Reports: Blood Clots/VTE/DVT, High Cholesterol Other Cardiovascular History: left armpit blood clot with paralysis, right leg DVT on lovenox Respiratory History: Reports: Sleep Apnea Gastrointestinal History: Reports: None Musculoskeletal History: Reports: None Psychiatric History: Reports: Anxiety, Depression Endocrine/Metabolic History: Reports: Obesity/BMI 30+ Hematologic History: Reports: Blood Transfusion(s) Immunologic History: Reports: Immunosuppression Oncologic (Cancer) History: Reports: Non-Hodgkin's Lymphoma Other Oncologic History: mantle cell lymphoma - Infectious Disease History Infectious Disease History: Reports: Chicken Pox - Past Surgical History Head Surgeries/Procedures: Reports: None HEENT Surgical History: Reports: None Cardiovascular Surgical History: Reports: None, Vascular Surgery Respiratory Surgical History: Reports: None GI Surgical History: Reports: Appendectomy, Cholecystectomy Endocrine Surgical History: Reports: None Musculoskeletal Surgical History: Reports: Other (See Below) Other Musculoskeletal Surgeries/Procedures:: Blood clot to left shoulder area that wasn't found early enough. Lost use of arm. Oncologic Surgical History: Reports: None Dermatological Surgical History: Reports: None Social & Family History - Family History Family Medical History: Noncontributory - Tobacco Use Smoking Status *Q: Former Smoker Years of Tobacco use: 15 Packs/Tins Daily: 1 Used Tobacco, but Quit: Yes Month Tobacco Last Used: October - Caffeine Use Caffeine Use: Reports: Soda Other Caffeine Use: diet and regular - Recreational Drug Use Recreational Drug Use: No ED ROS GENERAL - Review of Systems Review Of Systems: ROS reveals no pertinent complaints other than HPI. Constitutional: Reports: Fever, Fatigue HEENT: Reports: No Symptoms, Vertigo Cardiovascular: Reports: No Symptoms Endocrine: Reports: No Symptoms GI/Abdominal: Reports: No Symptoms : Reports: No Symptoms Musculoskeletal: Reports: No Symptoms Skin: Reports: No Symptoms Neurological: Reports: No Symptoms Psychiatric: Reports: No Symptoms Hematologic/Lymphatic: Reports: No Symptoms Immunologic: Reports: No Symptoms ED EXAM, GENERAL - Physical Exam Exam: See Below Exam Limited By: No Limitations General Appearance: Alert, WD/WN, No Apparent Distress Eye Exam: Bilateral Eye: Normal Inspection Nose: Normal Inspection, Normal Mucosa, No Blood Throat/Mouth: Normal Inspection, Normal Oropharynx, No Airway Compromise Head: Atraumatic, Normocephalic Neck: Normal Inspection, Supple Respiratory/Chest: No Respiratory Distress, Lungs Clear, Normal Breath Sounds, No Accessory Muscle Use, Chest Non-Tender Cardiovascular: Regular Rate, Rhythm, No Murmur GI/Abdominal: Normal Bowel Sounds, Soft, Non-Tender Back Exam: Normal Inspection. No: CVA Tenderness (L), CVA Tenderness (R) Extremities: Normal Inspection Neurological: Alert, Oriented, Normal Cognition Psychiatric: Normal Affect, Normal Mood Skin Exam: Warm, Dry, Intact, Normal Color, No Rash Course - Vital Signs Last Recorded V/S: Last Vital Signs Temp 98.6 F 10/10/17 06:58 Pulse 69 10/10/17 06:54 Resp 18 10/10/17 06:54 BP 98/55 L 10/10/17 06:54 Pulse Ox 94 L 10/10/17 06:54 - Orders/Labs/Meds Orders: Active Orders 24 hr Category Date Time Status Chest 1V Frontal [CR] Stat Exams 10/09/17 18:32 Taken CULTURE BLOOD [BC] Stat Lab 10/09/17 18:25 Received CULTURE BLOOD [BC] Stat Lab 10/09/17 18:50 Received CULTURE SPUTUM + SMEAR [RM] Stat Lab 10/09/17 18:53 Uncollected CULTURE URINE [RM] Stat Lab 10/09/17 20:10 Results Medication Orders Acetaminophen (Tylenol) 650 mg PO Q4H PRN PRN Reason: Pain (Mild 1-3)/fever Last Admin: 10/10/17 02:56 Dose: 650 mg Enoxaparin Sodium (Lovenox) 135 mg SUBCUT BID [facility] Last Admin: 10/10/17 08:14 Dose: 135 mg Sodium Chloride (Normal Saline) 500 mls @ 999 mls/hr IV .BOLUS [facility] Last Admin: 10/09/17 19:10 Dose: 999 mls/hr Piperacillin/Tazobactam/ (Dextrose 3.375 gm/ Premix) 50 mls @ 100 mls/hr IV Q6H [facility] Last Admin: 10/10/17 07:00 Dose: 100 mls/hr Infusion: 10/10/17 01:35 Dose: 100 mls/hr Admin: 10/10/17 01:05 Dose: 100 mls/hr Infusion: 10/09/17 20:38 Dose: 100 mls/hr Admin: 10/09/17 20:08 Dose: 100 mls/hr Vancomycin HCl 1.5 gm/ Sodium (Chloride) 250 mls @ 166.667 mls/hr IV Q12H [facility] Last Admin: 10/10/17 08:20 Dose: 166.667 mls/hr Admin: 10/09/17 22:02 Dose: 166.667 mls/hr Sodium Chloride (Normal Saline) 1,000 mls @ 100 mls/hr IV ASDIRECTED [facility] Last Admin: 10/10/17 04:55 Dose: 100 mls/hr Omeprazole (Omeprazole) 20 mg PO ACBREAKFAST [facility] Last Admin: 10/10/17 08:13 Dose: 20 mg Ondansetron HCl (Zofran Odt) 8 mg PO TID PRN PRN Reason: Nausea Senna/Docusate Sodium (Senna Plus) 1 tab PO DAILY PRN PRN Reason: Constipation Simvastatin (Zocor) 10 mg PO BEDTIME [facility] Last Admin: 10/09/17 22:21 Dose: 10 mg Vancomycin HCl (Pharmacy To Dose - Vancomycin) 1 dose .XX ASDIRECTED [facility] Venlafaxine HCl (Effexor Xr) 150 mg PO DAILY [facility] Last Admin: 10/10/17 08:13 Dose: 150 mg Zolpidem Tartrate (Ambien) 10 mg PO BEDTIME PRN PRN Reason: Sleep Last Admin: 10/09/17 22:24 Dose: 10 mg Labs: Laboratory Tests 10/09/17 10/09/17 Range/Units 18:25 18:25 WBC 1.1 L* (5.0-10.0) 10^3/uL RBC 4.38 L (4.50-6.00) 10^6/uL Hgb 13.2 (13.0-17.0) g/dL Hct 40.2 (40.0-52.0) % MCV 91.7 (82.0-92.0) fL MCH 30.1 (27.0-31.0) pg MCHC 32.8 (32.0-36.0) g/dL RDW 13.1 (11.5-14.5) % Plt Count 154 (150-300) 10^3/uL MPV 7.6 (7.4-10.4) fL Neut % (Auto) 37.6 L (50.0-70.0) % Lymph % (Auto) 31.9 (20.0-40.0) % [place] % (Auto) 16.3 H (2.0-8.0) % Eos % (Auto) 10.8 H (1.0-3.0) % Baso % (Auto) 3.4 H (0.0-1.0) % Neut # (Auto) 0.4 L (2.5-7.0) 10^3/uL Lymph # (Auto) 0.4 L (1.0-4.0) 10^3/uL [place] # (Auto) 0.2 (0.1-0.8) 10^3/uL Eos # (Auto) 0.1 (0.1-0.3) 10^3/uL Baso # (Auto) 0.0 (0.0-0.1) 10^3/uL Sodium 139 (136-145) mmol/L Potassium 4.1 (3.3-5.3) mmol/L Chloride 101 (98-115) mmol/L Carbon Dioxide 28.8 (21.0-32.0) mmol/L BUN 14 (6-25) mg/dL Creatinine 1.07 (0.51-1.17) mg/dL Est Cr Clr Drug Dosing 66.33 mL/min Estimated GFR (MDRD) > 60 mL/min Glucose 115 H (70-110) mg/dL Calcium 8.8 (8.7-10.3) mg/dL Total Bilirubin 1.0 (0.2-1.0) mg/dL AST 35 (15-37) U/L ALT 71 (12-78) U/L Alkaline Phosphatase 99 (46-116) IU/L Total Protein 7.4 (6.4-8.2) g/dL Albumin 3.65 (3.00-4.80) g/dL Meds: Medications Generic Name Dose Route Start Last Admin Trade Name Freq PRN Reason Stop Dose Admin Acetaminophen 650 mg 10/09/17 19:00 10/10/17 02:56 Tylenol PO 650 mg Q4H PRN Administration Pain (Mild 1-3)/fever Enoxaparin Sodium 135 mg 10/10/17 09:00 10/10/17 08:14 Lovenox SUBCUT 135 mg BID [facility] Administration Sodium Chloride 500 mls @ 999 mls/hr 10/09/17 19:15 10/09/17 19:10 Normal Saline IV 999 mls/hr .BOLUS [facility] Administration Piperacillin/Tazobactam/ 50 mls @ 100 mls/hr 10/09/17 19:15 10/10/17 07:00 Dextrose 3.375 gm/ Premix IV 100 mls/hr Q6H [facility] Administration Vancomycin HCl 1.5 gm/ Sodium 250 mls @ 166.667 mls/hr 10/09/17 20:00 08:20 Chloride IV 166.667 mls/hr Q12H [facility] Administration Sodium Chloride 1,000 mls @ 100 mls/hr 10/09/17 20:30 10/10/17 04:55 Normal Saline IV 100 mls/hr ASDIRECTED [facility] Administration Omeprazole 20 mg 10/10/17 07:30 10/10/17 08:13 Omeprazole PO 20 mg ACBREAKFAST [facility] Administration Ondansetron HCl 8 mg 10/09/17 22:30 Zofran Odt PO TID PRN Nausea Senna/Docusate Sodium 1 tab 10/09/17 19:44 Senna Plus PO DAILY PRN Constipation Simvastatin 10 mg 10/09/17 21:00 10/09/17 22:21 Zocor PO 10 mg BEDTIME [facility] Administration Vancomycin HCl 1 dose 10/09/17 19:45 Pharmacy To Dose - Vancomycin .XX ASDIRECTED [facility] Venlafaxine HCl 150 mg 10/10/17 09:00 10/10/17 08:13 Effexor Xr PO 150 mg DAILY [facility] Administration Zolpidem Tartrate 10 mg 10/09/17 22:15 10/09/17 22:24 Ambien PO 10 mg BEDTIME PRN Administration Sleep Discontinued Medications Generic Name Dose Route Start Last Admin Trade Name Freq PRN Reason Stop Dose Admin Acetaminophen Confirm 10/09/17 18:38 10/09/17 18:45 Tylenol Extra Strength Administered 10/09/17 18:39 Not Given Dose 1,000 mg .ROUTE .STK-MED ONE Acetaminophen 1,000 mg 10/09/17 18:39 10/09/17 20:51 Tylenol PO 10/09/17 18:40 Not Given NOW ONE Sodium Chloride Confirm 10/09/17 19:09 10/09/17 19:20 Normal Saline Administered 10/09/17 19:10 Not Given Dose 1,000 mls @ as directed .ROUTE .STK-MED ONE Non-Formulary Medication 135 mg 10/09/17 21:00 10/09/17 20:52 Enoxaparin Sodium [Lovenox] SUBCUT 135 mg BID [facility] Administration Non-Formulary Medication 8 mg 10/09/17 19:44 Ondansetron PO TID PRN Nausea Non-Formulary Medication 10 mg 10/09/17 19:44 Zolpidem PO BEDTIME PRN Sleep - Re-Assessments/Exams Free Text/Narrative Re-Assessment/Exam: 10/09/17 18:[address] BLUM, WILL ADMIT INPATIENT AND INITIATE ZOSYN, VANCOMYCIN FOR COVERAGE. Departure - Departure Time of Disposition: 19:00 Disposition: Admitted As Inpatient 68 Condition: Fair Clinical Impression: Fever Qualifiers: Fever type: unspecified Qualified Code(s): R50.9 - Fever, unspecified Neutropenia Qualifiers: Neutropenia type: unspecified Qualified Code(s): D70.9 - Neutropenia, unspecified - Discharge Information - My Orders Last 24 Hours: My Active Orders 10/09/17 18:25 CULTURE BLOOD [BC] Stat 10/09/17 18:32 Chest 1V Frontal [CR] Stat 10/09/17 18:50 CULTURE BLOOD [BC] Stat 10/09/17 18:53 CULTURE SPUTUM + SMEAR [RM] Stat 10/09/17 20:10 CULTURE URINE [RM] Stat - Assessment/Plan Admission H&P: Please use this note as an admission H&P Last 24 Hours: My Active Orders 10/09/17 18:25 CULTURE BLOOD [BC] Stat 10/09/17 18:32 Chest 1V Frontal [CR] Stat 10/09/17 18:50 CULTURE BLOOD [BC] Stat 10/09/17 18:53 CULTURE SPUTUM + SMEAR [RM] Stat 10/09/17 20:10 CULTURE URINE [RM] Stat
[2017-10-09] MEDS: Acetaminophen 325 MG Tab PO ONE ×2 (18:45→20:51)
[2017-10-09 18:54] LABS: CHLORIDE,CL 101 mmol/L (98-115); SODIUM,NA 139 mmol/L (136-145)
[2017-10-09] MEDS ORDERED: Acetaminophen 325 MG Tab PO PRN (19:00)
[2017-10-09] MEDS ORDERED: Sodium Chloride 0.9% 1,000 ML ONE (19:09)
[2017-10-09] MEDS ORDERED: Sodium Chloride 0.9% 500 ML IV SCH (19:15)
[2017-10-09] MEDS ORDERED: Non-Formulary Medication 1 Each (Ondansetron 8 MG) PO PRN (19:44)
[2017-10-09] MEDS ORDERED: Non-Formulary Medication 1 Each (Zolpidem 10 MG) PO PRN (19:44)
[2017-10-09] MEDS: Piperacillin/Tazobactam/Dext 3.375 GM in Premix Bag 1 BAG IV SCH (20:08)
[2017-10-09] MEDS ORDERED: ENOXAPARIN SODIUM SUBCUT SCH (21:00)
[2017-10-09] MEDS: Simvastatin 20 MG Tab PO SCH (22:21)
[2017-10-09] MEDS: Zolpidem 5 MG Tab PO PRN (22:24)
[2017-10-09] MEDS ORDERED: Ondansetron 4 MG Tab.DIS PO PRN (22:30)
[2017-10-10] MEDS: Piperacillin/Tazobactam/Dext 3.375 GM in Premix Bag 1 BAG IV SCH ×4 (01:05→18:48)
[2017-10-10] MEDS: Sodium Chloride 0.9% 1,000 ML IV SCH ×2 (04:55→17:50)
[2017-10-10] MEDS: Omeprazole 20 MG Cap.CR PO SCH (08:13)
[2017-10-10] MEDS: Venlafaxine 150 MG Cap.ER PO SCH (08:13)
[2017-10-10] MEDS: ENOXAPARIN SUBCUT SCH ×2 (08:14→20:35)
--- NOTE | 2017-10-10 10:22 | PCM.PN ---
- General Info Date of Service: 10/10/17 Admission Dx/Problem (Free Text): Patient is a 72-year-old gentleman who presented to the emergency department last evening with a complaint of fever, aches and pains. Patient has a history of neutropenia and was administered dose of Neupogen yesterday afternoon. Shortly after he developed fever and worsening of muscle aches. Upon presentation to emergency department, patient did have a fever of 101 and found to have white blood cell count of 1.1. Other lab work was within normal limits. Chest x-ray showed no acute process, patient was given Tylenol and fever was reduced. Blood cultures, sputum cultures and urine cultures were ordered. Patient was given initial dose of Zosyn and vancomycin, and admitted inpatient. Case was discussed with Dr. Rajan, who is his primary care provider. Functional Status: Reports: Pain Controlled Pain Score: 0 - Review of Systems General: Reports: No Symptoms HEENT: Reports: No Symptoms Pulmonary: Reports: No Symptoms Cardiovascular: Reports: No Symptoms Gastrointestinal: Reports: No Symptoms Genitourinary: Reports: No Symptoms Musculoskeletal: Reports: No Symptoms Skin: Reports: No Symptoms Neurological: Reports: No Symptoms Psychiatric: Reports: No Symptoms - Patient Data Vitals - Most Recent: Last Vital Signs Temp 98.6 F 10/10/17 06:58 Pulse 69 10/10/17 06:54 Resp 18 10/10/17 06:54 BP 98/55 L 10/10/17 06:54 Pulse Ox 94 L 10/10/17 06:54 Weight - Most Recent: 304 lb 8 oz I&O - Last 24 Hours: Intake & Output 10/09/17 10/10/17 10/10/17 22:59 06:59 14:59 Intake Total 350 1431 Output Total 300 2475 Balance 50 -1044 Lab Results Last 24 Hours: Laboratory Results - last 24 hr 10/09/17 10/10/17 Range/Units 20:10 07:30 WBC 1.4 L* (5.0-10.0) 10^3/uL RBC 4.06 L (4.50-6.00) 10^6/uL Hgb 12.3 L (13.0-17.0) g/dL Hct 36.4 L (40.0-52.0) % MCV 89.6 (82.0-92.0) fL MCH 30.3 (27.0-31.0) pg MCHC 33.9 (32.0-36.0) g/dL RDW 13.3 (11.5-14.5) % Plt Count 135 L (150-300) 10^3/uL MPV 7.5 (7.4-10.4) fL Neut % (Auto) 40.9 L (50.0-70.0) % Lymph % (Auto) 31.4 (20.0-40.0) % [place] % (Auto) 17.4 H (2.0-8.0) % Eos % (Auto) 7.3 H (1.0-3.0) % Baso % (Auto) 3.0 H (0.0-1.0) % Neut # (Auto) 0.7 L (2.5-7.0) 10^3/uL Lymph # (Auto) 0.4 L (1.0-4.0) 10^3/uL [place] # (Auto) 0.2 (0.1-0.8) 10^3/uL Eos # (Auto) 0.1 (0.1-0.3) 10^3/uL Baso # (Auto) 0.0 (0.0-0.1) 10^3/uL Specimen Type Urinvoid Urine Color Yellow (YELLOW) Urine Appearance Clear (CLEAR) Urine pH 6.5 (5.0-9.0) Ur Specific [place] 1.015 (1.005-1.030) Urine Protein Negative (NEGATIVE) mg/dL Urine Glucose (UA) Negative (NEGATIVE) mg/dL Urine Ketones Negative (NEGATIVE) mg/dL Urine Occult Blood Trace-intact H (NEGATIVE) Urine Nitrite Negative (NEGATIVE) Urine Bilirubin Negative (NEGATIVE) Urine Urobilinogen 0.2 (0.2-1.0) E.U./dL Ur Leukocyte Esterase Negative (NEGATIVE) Urine RBC 40-50 H /HPF Urine WBC 0-5 /HPF Ur Epithelial Cells Few /LPF Urine Bacteria Few (NONE TO FEW) /HPF [place] Results Last 24 Hours: Microbiology 10/09/17 20:10 Urine Culture - Preliminary Urine, Voided NO GROWTH AFTER 1 DAY Med Orders - Current: Current Medications Acetaminophen (Tylenol) 650 mg PO Q4H PRN PRN Reason: Pain (Mild 1-3)/fever Last Admin: 10/10/17 02:56 Dose: 650 mg Enoxaparin Sodium (Lovenox) 135 mg SUBCUT BID [facility] Last Admin: 10/10/17 08:14 Dose: 135 mg Sodium Chloride (Normal Saline) 500 mls @ 999 mls/hr IV .BOLUS [facility] Last Admin: 10/09/17 19:10 Dose: 999 mls/hr Piperacillin/Tazobactam/ (Dextrose 3.375 gm/ Premix) 50 mls @ 100 mls/hr IV Q6H [facility] Last Admin: 10/10/17 07:00 Dose: 100 mls/hr Vancomycin HCl 1.5 gm/ Sodium (Chloride) 250 mls @ 166.667 mls/hr IV Q12H [facility] Last Admin: 10/10/17 08:20 Dose: 166.667 mls/hr Sodium Chloride (Normal Saline) 1,000 mls @ 100 mls/hr IV ASDIRECTED [facility] Last Admin: 10/10/17 04:55 Dose: 100 mls/hr Omeprazole (Omeprazole) 20 mg PO ACBREAKFAST [facility] Last Admin: 10/10/17 08:13 Dose: 20 mg Ondansetron HCl (Zofran Odt) 8 mg PO TID PRN PRN Reason: Nausea Senna/Docusate Sodium (Senna Plus) 1 tab PO DAILY PRN PRN Reason: Constipation Simvastatin (Zocor) 10 mg PO BEDTIME [facility] Last Admin: 10/09/17 22:21 Dose: 10 mg Vancomycin HCl (Pharmacy To Dose - Vancomycin) 1 dose .XX ASDIRECTED [facility] Venlafaxine HCl (Effexor Xr) 150 mg PO DAILY [facility] Last Admin: 10/10/17 08:13 Dose: 150 mg Zolpidem Tartrate (Ambien) 10 mg PO BEDTIME PRN PRN Reason: Sleep Last Admin: 10/09/17 22:24 Dose: 10 mg Discontinued Medications Acetaminophen (Tylenol Extra Strength) Confirm Administered Dose 1,000 mg .ROUTE .STK-MED ONE Stop: 10/09/17 18:39 Last Admin: 10/09/17 18:45 Dose: Not Given Acetaminophen (Tylenol) 1,000 mg PO NOW ONE Stop: 10/09/17 18:40 Last Admin: 10/09/17 20:51 Dose: Not Given Sodium Chloride (Normal Saline) Confirm Administered Dose 1,000 mls @ as directed .ROUTE .STK-MED ONE Stop: 10/09/17 19:10 Last Admin: 10/09/17 19:20 Dose: Not Given Non-Formulary Medication (Enoxaparin Sodium [Lovenox]) 135 mg SUBCUT BID [facility] Last Admin: 10/09/17 20:52 Dose: 135 mg Non-Formulary Medication (Ondansetron) 8 mg PO TID PRN PRN Reason: Nausea Non-Formulary Medication (Zolpidem) 10 mg PO BEDTIME PRN PRN Reason: Sleep - Exam General: Alert, Oriented, Cooperative, No Acute Distress HEENT: Pupils Equal, Pupils Reactive Neck: Supple Lungs: Clear to Auscultation, Normal Respiratory Effort Cardiovascular: Regular Rate, Regular Rhythm GI/Abdominal Exam: Normal Bowel Sounds, Soft, Non-Tender Back Exam: Normal Inspection. No: CVA Tenderness (L), CVA Tenderness (R) Extremities: Normal Inspection Skin: Warm, Dry, Intact Neurological: Normal Speech, Normal Tone Psy/Mental Status: Alert, Normal Affect, Normal Mood Physical Findings Comments:: Patient resting comfortably. States he slept well with CPAP apparatus, and muscle aches have resolved. - Problem List Review Problem List Initiated/Reviewed/Updated: Yes - My Orders Last 24 Hours: My Active Orders 10/09/17 19:15 Piperacillin/Tazobactam/Dext [Zosyn in Dextrose Iso-Osmotic 3.375 GM] 3.375 gm Premix Bag 1 bag IV Q6H Sodium Chloride 0.9% [Normal Saline] 500 ml IV .BOLUS 10/09/17 19:44 Docusate Sodium/Sennosides [Senna Plus] 1 tab PO DAILY PRN 10/09/17 19:45 Vancomycin Pharmacy to Dose [Pharmacy to Dose - Vancomycin] 1 dose .XX ASDIRECTED 10/09/17 20:00 Vancomycin 1.5 gm Sodium Chloride 0.9% [Normal Saline] 250 ml IV Q12H 10/09/17 20:30 Sodium Chloride 0.9% [Normal Saline] 1,000 ml IV ASDIRECTED 10/09/17 21:00 Simvastatin [Zocor] 10 mg PO BEDTIME 10/09/17 22:15 Zolpidem [Ambien] 10 mg PO BEDTIME PRN 10/09/17 22:30 Ondansetron [Zofran ODT] 8 mg PO TID PRN 10/10/17 07:30 Omeprazole 20 mg PO ACBREAKFAST 10/10/17 09:00 Enoxaparin [Lovenox] 135 mg SUBCUT BID Venlafaxine [Effexor XR] 150 mg PO DAILY - Assessment Assessment:: Neutropenia and resolving fever. WBC improvement from 1.1-1.4 this a.m. - Plan Plan:: Vancomycin every 12hrs and Zosyn every 6hrs will be continued. Lab work will be ordered for the a.m. Dr. Rajan is aware of patient status and in management of care.
[2017-10-10] MEDS: Simvastatin 20 MG Tab PO SCH (20:32)
[2017-10-10] MEDS: Zolpidem 5 MG Tab PO PRN (20:32)
[2017-10-11] MEDS: Piperacillin/Tazobactam/Dext 3.375 GM in Premix Bag 1 BAG IV SCH ×4 (01:08→18:49)
[2017-10-11] MEDS: Sodium Chloride 0.9% 1,000 ML IV SCH ×2 (06:38→20:17)
[2017-10-11] MEDS: Omeprazole 20 MG Cap.CR PO SCH (08:57)
[2017-10-11] MEDS: Venlafaxine 150 MG Cap.ER PO SCH (08:57)
[2017-10-11] MEDS: ENOXAPARIN SUBCUT SCH ×2 (08:58→20:25)
--- NOTE | 2017-10-11 10:25 | PCM.PN ---
- General Info Date of Service: 10/11/17 Admission Dx/Problem (Free Text): Patient is a 72-year-old gentleman who presented to the emergency department last evening with a complaint of fever, aches and pains. Patient has a history of neutropenia and was administered dose of Neupogen yesterday afternoon. Shortly after he developed fever and worsening of muscle aches. Upon presentation to emergency department, patient did have a fever of 101 and found to have white blood cell count of 1.1. Other lab work was within normal limits. Chest x-ray showed no acute process, patient was given Tylenol and fever was reduced. Blood cultures, sputum cultures and urine cultures were ordered. Patient was given initial dose of Zosyn and vancomycin, and admitted inpatient. Case was discussed with Dr. Rajan, who is his primary care provider. Subjective Update: Patient is afebrile, nontoxic appearing, vital signs stable. No fever in past 24 hours. WBC this a.m. was 1.3. Patient resting comfortably, states he had a well rested night. Functional Status: Reports: Pain Controlled - Review of Systems General: Reports: No Symptoms HEENT: Reports: No Symptoms Pulmonary: Reports: No Symptoms Cardiovascular: Reports: No Symptoms Gastrointestinal: Reports: No Symptoms Genitourinary: Reports: No Symptoms Musculoskeletal: Reports: No Symptoms Skin: Reports: No Symptoms Neurological: Reports: No Symptoms Psychiatric: Reports: No Symptoms - Patient Data Vitals - Most Recent: Last Vital Signs Temp 98.7 F 10/11/17 06:49 Pulse 67 10/11/17 06:49 Resp 16 10/11/17 06:49 BP 103/64 10/11/17 06:49 Pulse Ox 93 L 10/11/17 06:49 Weight - Most Recent: 304 lb 8 oz I&O - Last 24 Hours: Intake & Output 10/10/17 10/11/17 10/11/17 22:59 06:59 14:59 Intake Total 1550 880 Output Total 1050 1200 Balance 500 -320 Lab Results Last 24 Hours: Laboratory Results - last 24 hr 10/11/17 10/11/17 Range/Units 07:15 07:15 WBC 1.3 L* (5.0-10.0) 10^3/uL RBC 3.77 L (4.50-6.00) 10^6/uL Hgb 11.5 L (13.0-17.0) g/dL Hct 34.3 L (40.0-52.0) % MCV 91.0 (82.0-92.0) fL MCH 30.5 (27.0-31.0) pg MCHC 33.4 (32.0-36.0) g/dL RDW 13.1 (11.5-14.5) % Plt Count 129 L (150-300) 10^3/uL MPV 8.0 (7.4-10.4) fL Neut % (Auto) 30.1 L (50.0-70.0) % Lymph % (Auto) 34.7 (20.0-40.0) % [place] % (Auto) 18.4 H (2.0-8.0) % Eos % (Auto) 14.1 H (1.0-3.0) % Baso % (Auto) 2.7 H (0.0-1.0) % Neut # (Auto) 0.4 L (2.5-7.0) 10^3/uL Lymph # (Auto) 0.5 L (1.0-4.0) 10^3/uL [place] # (Auto) 0.2 (0.1-0.8) 10^3/uL Eos # (Auto) 0.2 (0.1-0.3) 10^3/uL Baso # (Auto) 0.0 (0.0-0.1) 10^3/uL Vancomycin Trough 12.9 (10-20) ug/mL [place] Results Last 24 Hours: Microbiology 10/09/17 20:10 Urine Culture - Preliminary Urine, Voided NO GROWTH AFTER 1 DAY Med Orders - Current: Current Medications Acetaminophen (Tylenol) 650 mg PO Q4H PRN PRN Reason: Pain (Mild 1-3)/fever Last Admin: 10/10/17 02:56 Dose: 650 mg Enoxaparin Sodium (Lovenox) 135 mg SUBCUT BID [facility] Last Admin: 10/11/17 08:58 Dose: 135 mg Sodium Chloride (Normal Saline) 500 mls @ 999 mls/hr IV .BOLUS [facility] Last Admin: 10/09/17 19:10 Dose: 999 mls/hr Piperacillin/Tazobactam/ (Dextrose 3.375 gm/ Premix) 50 mls @ 100 mls/hr IV Q6H [facility] Last Admin: 10/11/17 06:52 Dose: 100 mls/hr Vancomycin HCl 1.5 gm/ Sodium (Chloride) 250 mls @ 166.667 mls/hr IV Q12H [facility] Last Admin: 10/11/17 08:59 Dose: 166.667 mls/hr Sodium Chloride (Normal Saline) 1,000 mls @ 100 mls/hr IV ASDIRECTED [facility] Last Admin: 10/11/17 06:38 Dose: 100 mls/hr Omeprazole (Omeprazole) 20 mg PO ACBREAKFAST [facility] Last Admin: 10/11/17 08:57 Dose: 20 mg Ondansetron HCl (Zofran Odt) 8 mg PO TID PRN PRN Reason: Nausea Senna/Docusate Sodium (Senna Plus) 1 tab PO DAILY PRN PRN Reason: Constipation Simvastatin (Zocor) 10 mg PO BEDTIME [facility] Last Admin: 10/10/17 20:32 Dose: 10 mg Vancomycin HCl (Pharmacy To Dose - Vancomycin) 1 dose .XX ASDIRECTED [facility] Venlafaxine HCl (Effexor Xr) 150 mg PO DAILY [facility] Last Admin: 10/11/17 08:57 Dose: 150 mg Zolpidem Tartrate (Ambien) 10 mg PO BEDTIME PRN PRN Reason: Sleep Last Admin: 10/10/17 20:32 Dose: 10 mg Discontinued Medications Acetaminophen (Tylenol Extra Strength) Confirm Administered Dose 1,000 mg .ROUTE .STK-MED ONE Stop: 10/09/17 18:39 Last Admin: 10/09/17 18:45 Dose: Not Given Acetaminophen (Tylenol) 1,000 mg PO NOW ONE Stop: 10/09/17 18:40 Last Admin: 10/09/17 20:51 Dose: Not Given Sodium Chloride (Normal Saline) Confirm Administered Dose 1,000 mls @ as directed .ROUTE .STK-MED ONE Stop: 10/09/17 19:10 Last Admin: 10/09/17 19:20 Dose: Not Given Non-Formulary Medication (Enoxaparin Sodium [Lovenox]) 135 mg SUBCUT BID [facility] Last Admin: 10/09/17 20:52 Dose: 135 mg Non-Formulary Medication (Ondansetron) 8 mg PO TID PRN PRN Reason: Nausea Non-Formulary Medication (Zolpidem) 10 mg PO BEDTIME PRN PRN Reason: Sleep - Exam General: Alert, Oriented, Cooperative, No Acute Distress Lungs: Clear to Auscultation, Normal Respiratory Effort Cardiovascular: Regular Rate, Regular Rhythm GI/Abdominal Exam: Normal Bowel Sounds, Soft, Non-Tender Extremities: Normal Inspection Skin: Warm, Dry, Intact Neurological: No New Focal Deficit Psy/Mental Status: Alert, Normal Affect, Normal Mood - Problem List Review Problem List Initiated/Reviewed/Updated: Yes - My Orders Last 24 Hours: My Active Orders 10/12/17 05:11 CBC WITH AUTO DIFF [HEME] DAILY 10/13/17 05:11 CBC WITH AUTO DIFF [HEME] DAILY - Assessment Assessment:: Neutropenia and resolving fever. WBC decreased from 1.4-1.3 this a.m. Vancomycin and Zosyn continued. Blood and urine cultures show no growth after 1 day. Patient will be evaluated again by Dr. Rajan in a.m. to consider discharge. - Plan Plan:: Vancomycin every 12hrs and Zosyn every 6hrs will be continued. Lab work will be ordered for the a.m. Dr. Rajan is aware of patient status and in management of care. Consideration for discharge tomorrow.
[2017-10-11] MEDS: Simvastatin 20 MG Tab PO SCH (20:25)
[2017-10-11] MEDS: Zolpidem 5 MG Tab PO PRN (20:26)
[2017-10-12] MEDS: Piperacillin/Tazobactam/Dext 3.375 GM in Premix Bag 1 BAG IV SCH ×2 (00:49→06:43)
[2017-10-12 07:05] VITALS: BP 111/72
[2017-10-12] MEDS: Omeprazole 20 MG Cap.CR PO SCH (08:00)
[2017-10-12] MEDS: ENOXAPARIN SUBCUT SCH (08:57)
[2017-10-12] MEDS: Venlafaxine 150 MG Cap.ER PO SCH (08:58)
[2017-10-12] MEDS ORDERED: Sodium Chloride 0.9% 20 ML SDV FLUSH ONE (11:47)
[2017-10-12] MEDS ORDERED: Simvastatin 10 MG Tab PO SCH (21:00)
--- NOTE | 2017-10-13 18:20 | DISCH ---
ADMITTING DIAGNOSIS: Neutropenic fever. DISCHARGE DIAGNOSIS: 1. Neutropenic fever, all cultures negative for 48 hours. 2. Lymphoma. HOSPITAL COURSE: Jadiel is a 72-year-old gentleman who presented to the emergency department on 10/09/2017 with fever at home. The patient's last chemotherapy for lymphoma was approximately two months ago, but he has had a difficult time maintaining his white blood cell count within a healthy level. He does receive periodic Neupogen injections. He has had to be hospitalized at least two times in the past for febrile neutropenia of which all cultures have resulted and been negative. The patient notes that on the day of presentation to the emergency department, "I just started to feel really run down." He did not really have any ill symptoms, but does know that when he has a fever and his white blood cell count is low that he is to present to the emergency department for further evaluation and treatment. His initial labs in the emergency department showed a white blood cell count of 1.1 with an absolute neutrophil count of 0.4. Chemistry panel was largely unremarkable. He had urine cultures, blood cultures, and sputum cultures obtained. Sputum was unable to be obtained due to the fact that the patient had no cough. He was started on vancomycin and Zosyn for broad-spectrum antibiotic coverage. He was seen by my colleague on both 10/10/2017 and 10/11/2017. He did receive a Neupogen injection on 10/09/2017. He was supposed to have a series of five total injections. We were not able to give his Neupogen for 10/10/2017, 10/11/2017, or today. We will have that in stock starting on 10/13/2017, and he will receive four injections, one on 10/13/2017, 10/14/2017, 10/15/2017, and 10/16/2017. At the time of discharge, he had been afebrile for over 24 hours. He states that he was feeling much better, although was concerned that perhaps he was developing a little bit of cold, but otherwise was feeling fine. LABORATORY DATA: On discharge for his CBC includes a white blood cell count of 1.3 with an absolute neutrophil count of 0.4. This really is not much change from admission. His hemoglobin was stable at 11.6, and his platelet count was mildly suppressed at 146,000, however, this has been stable. He was having a good appetite. He did not have any diarrhea. He will be discharged home on levofloxacin taking 750 mg by mouth orally daily for an additional seven days. He does have followup with the [facility] in early October. PHYSICAL EXAM ON DISCHARGE: VITAL SIGNS: Blood pressure 111/72, pulse is 67 and regular, temperature is 98.7, respiratory rate is 20, and oxygen saturation is 94% on room air. He is alert, oriented, and in no acute distress. HEENT: Head is normocephalic, atraumatic. CARDIOVASCULAR: Regular rate and rhythm without murmurs, gallops, or rubs. RESPIRATORY: Lungs are clear to auscultation bilaterally without wheezes, crackles, or rhonchi. ABDOMEN: Positive bowel sounds. EXTREMITIES: There is no lower extremity edema. FOLLOW-UP RECOMMENDATIONS: As stated previously, Jadiel will be discharged home. His only new medication is going to be the levofloxacin for an additional seven days. There are no other changes to his outpatient medications. On outpatient, he does take enoxaparin 150 mg subcutaneously daily due to a history of clotting disorder. He also takes omeprazole once a day and venlafaxine 150 mg by mouth once a day along with simvastatin 10 mg p.o. at bedtime. There are no changes to those medications. Jadiel will follow up with me in clinic on an as-needed basis and will keep his appointment with the [facility] as well as with his support team through the [facility] in [place]. /[id number]/MODL
== END 2017-10-12 12:30 | disposition home or self-care (01) | DRG 809 ==
LOC: KA.ED 17:45 → KA.MS 19:00
PROVIDERS: ADMIT Physician Assistant Surgical; ATTEND Internal Medicine
DX: D70.9 Neutropenia, unspecified (principal); C85.90 Non-Hodgkin lymphoma, unspecified, unspecified site; C83.10 Mantle cell lymphoma, unspecified site; R50.9 Fever, unspecified; R50.81 Fever presenting with conditions classified elsewhere; E78.00 Pure hypercholesterolemia, unspecified; D70.1 Agranulocytosis secondary to cancer chemotherapy; F41.8 Other specified anxiety disorders; Z88.8 Allergy status to other drugs, medicaments and biological substances; Z79.899 Other long term (current) drug therapy; Z86.718 Personal history of other venous thrombosis and embolism; Z87.891 Personal history of nicotine dependence
CPT/HCPCS: 71010; 96372; 99285; 85025; 36415; 80053; 87040 ×2; A9270; J1442; 80202; 81001; 87086; 96360; J1642; J1650; J2543; J3370; J7030; J7040; J7050

== ENCOUNTER 2017-11-16 15:26 | Inpatient (IN) | payer MEDICARE, BC ==
[2017-11-16 16:02] LABS: CHLORIDE,CL 101 mmol/L (98-115); SODIUM,NA 139 mmol/L (136-145)
[2017-11-16] MEDS ORDERED: Sodium Chloride 0.9% 5 ML Syringe FLUSH PRN (16:35)
[2017-11-16] MEDS: Dextrose 5%-0.45% NaCl 1,000 ML IV SCH (16:55)
[2017-11-16] MEDS: Piperacillin/Tazobactam/Dext 50 ML IV SCH ×4 (16:56→22:10)
[2017-11-16] MEDS ORDERED: Piperacillin/Tazobactam 3.375 GM in Sodium Chloride 0.9% 50 ML IV SCH (17:00)
[2017-11-16] MEDS: Acetaminophen 325 MG Tab PO PRN ×2 (17:15→21:16)
[2017-11-16] MEDS ORDERED: Ondansetron 4 MG Tab.DIS PO PRN (21:00)
[2017-11-16] MEDS: Simvastatin 10 MG Tab PO SCH (21:16)
[2017-11-16] MEDS: Zolpidem 5 MG Tab PO PRN (21:16)
[2017-11-17] MEDS: Piperacillin/Tazobactam/Dext 50 ML IV SCH ×8 (05:01→22:37)
[2017-11-17] MEDS: Omeprazole 20 MG Cap.CR PO SCH (08:28)
[2017-11-17] MEDS: Multivitamins with Minerals/Iron/Folic Acid/Lycopene Tab PO SCH (08:28)
[2017-11-17] MEDS: Enoxaparin 150 MG/1 ML Syringe SUBCUT SCH (08:28)
[2017-11-17] MEDS: Venlafaxine 150 MG Cap.ER PO SCH (08:28)
--- NOTE | 2017-11-17 08:46 | PCM.PN ---
- General Info Date of Service: 11/17/17 Admission Dx/Problem (Free Text): Pneumonia Skin infection - Review of Systems Systems Review Comment:: Jadiel is seen today on inpatient rounds. He was admitted on 11/16/17 with fever , chills and body aches. Labs revealed he had febrile neutropenia and CXR showed questionable early right perihilar infiltrate. He was started on vancomycin and zosyn as broad spectrum antibiotics. He was also noted to have a lesion in his left groin that was cultured. His labs from this morning have not yet been drawn due to his vancomycin running currently through his port. He has a hx of non-hodgkins lymphoma, mantle cell, and his last chemotherapy was nearly 4 months ago, however they think he is the 1% of patients who have a rare complication of the Ritux[place] and that he will eventually be able to recover his WBC but it could take as long as 6 months or more. He states he feels better this morning than he did yesterday. He has been febrile through the night but it was a lower grade temp this morning. He has no N/V/D. He has good urine output. - Patient Data Vitals - Most Recent: Last Vital Signs Temp 99.9 F 11/17/17 06:21 Pulse 69 11/17/17 06:21 Resp 18 11/17/17 06:21 BP 106/57 L 11/17/17 06:21 Pulse Ox 92 L 11/17/17 06:21 Weight - Most Recent: 303 lb 6.4 oz I&O - Last 24 Hours: Intake & Output 11/16/17 11/17/17 11/17/17 22:59 06:59 14:59 Intake Total 690 1513 Output Total 600 2100 Balance 90 -587 Lab Results Last 24 Hours: Laboratory Results - last 24 hr 11/16/17 11/16/17 Range/Units 15:30 15:30 WBC 1.3 L* (5.0-10.0) 10^3/uL RBC 4.41 L (4.50-6.00) 10^6/uL Hgb 12.8 L (13.0-17.0) g/dL Hct 40.8 (40.0-52.0) % MCV 92.4 H (82.0-92.0) fL MCH 29.0 (27.0-31.0) pg MCHC 31.4 L (32.0-36.0) g/dL RDW 15.0 H (11.5-14.5) % Plt Count 207 (150-300) 10^3/uL MPV 8.0 (7.4-10.4) fL Neut % (Auto) 42.1 L (50.0-70.0) % Lymph % (Auto) 31.6 (20.0-40.0) % [place] % (Auto) 19.4 H (2.0-8.0) % Eos % (Auto) 6.9 H (1.0-3.0) % Baso % (Auto) 0.0 (0.0-1.0) % Neut # (Auto) 0.5 L (2.5-7.0) 10^3/uL Lymph # (Auto) 0.4 L (1.0-4.0) 10^3/uL [place] # (Auto) 0.3 (0.1-0.8) 10^3/uL Eos # (Auto) 0.1 (0.1-0.3) 10^3/uL Baso # (Auto) 0.0 (0.0-0.1) 10^3/uL Sodium 139 (136-145) mmol/L Potassium 4.0 (3.3-5.3) mmol/L Chloride 101 (98-115) mmol/L Carbon Dioxide 29.3 (21.0-32.0) mmol/L BUN 14 (6-25) mg/dL Creatinine 0.98 (0.51-1.17) mg/dL Est Cr Clr Drug Dosing TNP Estimated GFR (MDRD) > 60 mL/min Glucose 125 H (70-110) mg/dL Calcium 8.8 (8.7-10.3) mg/dL Total Bilirubin 1.6 H (0.2-1.0) mg/dL AST 26 (15-37) U/L ALT 42 (12-78) U/L Alkaline Phosphatase 91 (46-116) IU/L Total Protein 7.7 (6.4-8.2) g/dL Albumin 3.48 (3.00-4.80) g/dL [place] Results Last 24 Hours: Microbiology 11/16/17 15:26 Influenza Type A Antigen Screen - Final Nasopharyngeal Swab NEGATIVE INFLUENZA A VIRUS AG Influenza Type B Antigen Screen - Final NEGATIVE INFLUENZA B VIRUS AG Med Orders - Current: Current Medications Acetaminophen (Tylenol) 650 mg PO Q4H PRN PRN Reason: pain - fever Last Admin: 11/16/17 21:16 Dose: 650 mg Enoxaparin Sodium (Lovenox) [address] [facility] Last Admin: 11/17/17 08:28 Dose: 150 mg Dextrose/Sodium Chloride (Dextrose 5%-1/2 Ns) 1,000 mls @ 75 mls/hr IV ASDIRECTED [facility] Last Admin: 11/16/17 16:55 Dose: 75 mls/hr Piperacillin/Tazobactam/Dextrose (Zosyn In Dextrose Iso-Osmotic 3.375 Gm) 50 mls @ 100 mls/hr IV Q6H [facility] Last Admin: 11/17/17 05:01 Dose: 100 mls/hr Vancomycin HCl 1.5 gm/ Sodium (Chloride) 280 mls @ 112 mls/hr IV Q12H [facility] Last Admin: 11/17/17 06:13 Dose: 112 mls/hr Multivitamins/Minerals (Centrum) [address] [facility] Last Admin: 11/17/17 08:28 Dose: 1 tab Non-FormVitamin (D3 50,000 Unit Cap) 50,000 unit PO Fr@0900 [facility] Omeprazole (Omeprazole) [address] [facility] Last Admin: 11/17/17 08:28 Dose: 20 mg Ondansetron HCl (Zofran Odt) 8 mg PO TID PRN PRN Reason: NAUSEA Senna/Docusate Sodium (Senna Plus) 1 tab PO DAILY PRN PRN Reason: Constipation Simvastatin (Zocor) [address] [facility] Last Admin: 11/16/17 21:16 Dose: 10 mg Sodium Chloride (Syrex Flush) 5 ml FLUSH Q8HR PRN PRN Reason: Keep Vein Open Vancomycin HCl (Pharmacy To Dose - Vancomycin) [address] [facility] Venlafaxine HCl (Effexor Xr) [address] [facility] Last Admin: 11/17/17 08:28 Dose: 150 mg Zolpidem Tartrate (Ambien) 10 mg PO BEDTIME PRN PRN Reason: Sleep Last Admin: 11/16/17 21:16 Dose: 10 mg Discontinued Medications Piperacillin Sod/Tazobactam (Sod 3.375 gm/ Sodium Chloride) 50 mls @ 100 mls/ hr IV Q6H [facility] Vancomycin HCl 1.5 gm/ Sodium (Chloride) 250 mls @ 166.667 mls/hr IV Q12H [facility] - Exam General: Alert, Oriented, Cooperative, No Acute Distress Lungs: Crackles (Left lung base) Cardiovascular: Regular Rate, Regular Rhythm, No Murmurs - Problem List & Annotations (1) Neutropenic fever SNOMED Code(s): 656112446 Code(s): D70.9 - NEUTROPENIA, UNSPECIFIED; R50.81 - FEVER PRESENTING WITH CONDITIONS CLASSIFIED ELSEWHERE Status: Acute Current Visit: Yes (2) Mantle cell lymphoma SNOMED Code(s): 072748264 Code(s): C83.10 - MANTLE CELL LYMPHOMA, UNSPECIFIED SITE Status: Acute Current Visit: Yes (3) Brachial plexopathy Status: Acute Current Visit: Yes (4) Factor V Leiden SNOMED Code(s): 035322307 Code(s): D68.51 - ACTIVATED PROTEIN C RESISTANCE Status: Acute Current Visit: Yes (5) Hypothyroidism SNOMED Code(s): 21631103 Code(s): E03.9 - HYPOTHYROIDISM, UNSPECIFIED Status: Acute Current Visit : Yes (6) Hyperlipidemia SNOMED Code(s): 21061808 Code(s): E78.5 - HYPERLIPIDEMIA, UNSPECIFIED Status: Acute Current Visit : Yes (7) Acid reflux SNOMED Code(s): 023418094 Code(s): K21.9 - GASTRO-ESOPHAGEAL REFLUX DISEASE WITHOUT ESOPHAGITIS Status: Acute Current Visit: Yes (8) Depression SNOMED Code(s): 31389902 Code(s): F32.9 - MAJOR DEPRESSIVE DISORDER, SINGLE EPISODE, UNSPECIFIED Status: Acute Current Visit: Yes (9) Protein C deficiency SNOMED Code(s): 31469283 Code(s): D68.59 - OTHER PRIMARY THROMBOPHILIA Status: Acute Current Visit : Yes (10) Skin abscess SNOMED Code(s): 53539915 Code(s): L02.91 - CUTANEOUS ABSCESS, UNSPECIFIED Status: Acute Current Visit: Yes (11) Pneumonia SNOMED Code(s): 556654050 Code(s): J18.9 - PNEUMONIA, UNSPECIFIED ORGANISM Status: Acute Current Visit: Yes - Problem List Review Problem List Initiated/Reviewed/Updated: Yes - My Orders Last 24 Hours: My Active Orders 11/16/17 17:16 Acetaminophen [Tylenol] 650 mg PO Q4H PRN 11/16/17 18:19 Central Line Assessment [RC] 0900,2100 11/17/17 08:37 BMP [BASIC METABOLIC PANEL,BMP] [CHEM] Routine 11/18/17 05:11 BMP [BASIC METABOLIC PANEL,BMP] [CHEM] AM CBC WITH AUTO DIFF [HEME] AM 11/19/17 05:11 BMP [BASIC METABOLIC PANEL,BMP] [CHEM] AM CBC WITH AUTO DIFF [HEME] AM 11/20/17 05:11 BMP [BASIC METABOLIC PANEL,BMP] [CHEM] AM CBC WITH AUTO DIFF [HEME] AM 11/21/17 05:11 BMP [BASIC METABOLIC PANEL,BMP] [CHEM] AM CBC WITH AUTO DIFF [HEME] AM 11/22/17 05:11 BMP [BASIC METABOLIC PANEL,BMP] [CHEM] AM CBC WITH AUTO DIFF [HEME] AM - Assessment Assessment:: Neutropenia fever. Perihilar developing pneumonia. Skin abscess of left groin. NHL, mantle cell. Acid Reflux. Depression. Factor V Leiden. Protein C deficiency. Hx of DVT. Hyperlipidemia. 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 - Plan Plan:: Neutropenia fever. Vancomycin and zosyn. [place] cultures. Daily labs. Perihilar developing pneumonia. Antibiotics as above. Cultures as above. Skin abscess of left groin. Culture obtained, antibiotics as above. Will narrow spectrum with culture results are back. NHL, mantle cell. Currently in remission. Acid Reflux. Continue omeprazole. Depression. Continue venlafaxine. Factor V Leiden. Enoxaparin. Protein C deficiency. Enoxaparin. Hx of DVT. Enoxaparin. Hyperlipidemia. Continue simvastatin. 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 No additional treatment. He follows with neurology at [facility].
[2017-11-17 10:52] LABS: CHLORIDE,CL 105 mmol/L (98-115); SODIUM,NA 141 mmol/L (136-145)
[2017-11-17] MEDS: Dextrose 5%-0.45% NaCl 1,000 ML IV SCH (12:40)
[2017-11-17] MEDS: Simvastatin 10 MG Tab PO SCH (21:01)
[2017-11-17] MEDS: Zolpidem 5 MG Tab PO PRN (21:07)
[2017-11-17] MEDS: guaiFENesin/Dextromethorphan 100-10 MG/5 ML Soln 5 ML Cup PO PRN (23:09)
[2017-11-18] MEDS: Piperacillin/Tazobactam/Dext 50 ML IV SCH ×8 (05:00→22:41)
[2017-11-18 06:46] LABS: CHLORIDE,CL 105 mmol/L (98-115); SODIUM,NA 141 mmol/L (136-145)
[2017-11-18] MEDS: Omeprazole 20 MG Cap.CR PO SCH (08:18)
[2017-11-18] MEDS: Multivitamins with Minerals/Iron/Folic Acid/Lycopene Tab PO SCH (08:18)
[2017-11-18] MEDS: Enoxaparin 150 MG/1 ML Syringe SUBCUT SCH (08:18)
[2017-11-18] MEDS: Venlafaxine 150 MG Cap.ER PO SCH (08:19)
--- NOTE | 2017-11-18 08:45 | PCM.PN ---
- General Info Date of Service: 11/18/17 - Review of Systems Systems Review Comment:: Jadiel is seen today on inpatient rounds. He was admitted on 11/16/17 from clinic with neutropenic fever and perihilar infiltrates concerning for pneumonia. He also had a wound in his groin that was draining. He states he had a rough night. He would get into coughing spells and had a difficult time sleeping. He states the cough was more dry yesterday but overnight he feels like it is getting more "crackley" He has not be able to cough anything up, however, to get a sputum culture. He received cough syrup last night but "that didn't do anything". Wound culture is pending. No urinary or bowel concerns. No pain. Labs this AM show a WBC of 1.3 with ANC of 0.4. Hemoglobin 11. Panel largely unremarkable although blood glucose has been elevated. He has no hx of diabetes. He is not on steroids. He plans to take a shower today and do some more walking as he has really only been from bed to chair or to the bathroom. 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 - Patient Data Vitals - Most Recent: Last Vital Signs Temp 98.8 F 11/18/17 06:46 Pulse 73 11/18/17 06:46 Resp 16 11/18/17 06:46 BP 115/73 11/18/17 06:46 Pulse Ox 97 11/18/17 06:57 Weight - Most Recent: 303 lb 6.4 oz I&O - Last 24 Hours: Intake & Output 11/17/17 11/18/17 11/18/17 22:59 06:59 14:59 Intake Total 1493 700 Output Total 650 1600 Balance 843 -900 Lab Results Last 24 Hours: Laboratory Results - last 24 hr 11/17/17 11/17/17 11/18/17 Range/Units 09:40 09:40 05:45 WBC 1.1 L* (5.0-10.0) 10^3/uL RBC 3.83 L (4.50-6.00) 10^6/uL Hgb 11.3 L (13.0-17.0) g/dL Hct 35.2 L (40.0-52.0) % MCV 91.8 (82.0-92.0) fL MCH 29.5 (27.0-31.0) pg MCHC 32.1 (32.0-36.0) g/dL RDW 14.9 H (11.5-14.5) % Plt Count 154 (150-300) 10^3/uL MPV 8.0 (7.4-10.4) fL Neut % (Auto) 38.9 L (50.0-70.0) % Lymph % (Auto) 28.0 (20.0-40.0) % [place] % (Auto) 24.3 H (2.0-8.0) % Eos % (Auto) 8.8 H (1.0-3.0) % Baso % (Auto) 0.0 (0.0-1.0) % Neut # (Auto) 0.4 L (2.5-7.0) 10^3/uL Lymph # (Auto) 0.3 L (1.0-4.0) 10^3/uL [place] # (Auto) 0.3 (0.1-0.8) 10^3/uL Eos # (Auto) 0.1 (0.1-0.3) 10^3/uL Baso # (Auto) 0.0 (0.0-0.1) 10^3/uL Sodium 141 (136-145) mmol/L Potassium 3.4 (3.3-5.3) mmol/L Chloride 105 (98-115) mmol/L Carbon Dioxide 25.8 (21.0-32.0) mmol/L BUN 13 (6-25) mg/dL Creatinine 0.99 (0.51-1.17) mg/dL Est Cr Clr Drug Dosing 71.69 mL/min Estimated GFR (MDRD) > 60 mL/min Glucose 144 H (70-110) mg/dL Calcium 8.4 L (8.7-10.3) mg/dL Vancomycin Trough 12.4 (10-20) ug/mL 11/18/17 11/18/17 Range/Units 05:45 05:45 WBC 1.3 L* (5.0-10.0) 10^3/uL RBC 3.70 L (4.50-6.00) 10^6/uL Hgb 11.0 L (13.0-17.0) g/dL Hct 34.1 L (40.0-52.0) % MCV 92.1 H (82.0-92.0) fL MCH 29.8 (27.0-31.0) pg MCHC 32.4 (32.0-36.0) g/dL RDW 14.9 H (11.5-14.5) % Plt Count 159 (150-300) 10^3/uL MPV 8.1 (7.4-10.4) fL Neut % (Auto) 34.7 L (50.0-70.0) % Lymph % (Auto) 28.6 (20.0-40.0) % [place] % (Auto) 24.8 H (2.0-8.0) % Eos % (Auto) 11.9 H (1.0-3.0) % Baso % (Auto) 0.0 (0.0-1.0) % Neut # (Auto) 0.4 L (2.5-7.0) 10^3/uL Lymph # (Auto) 0.4 L (1.0-4.0) 10^3/uL [place] # (Auto) 0.3 (0.1-0.8) 10^3/uL Eos # (Auto) 0.2 (0.1-0.3) 10^3/uL Baso # (Auto) 0.0 (0.0-0.1) 10^3/uL Sodium 141 (136-145) mmol/L Potassium 3.5 (3.3-5.3) mmol/L Chloride 105 (98-115) mmol/L Carbon Dioxide 26.3 (21.0-32.0) mmol/L BUN 12 (6-25) mg/dL Creatinine 0.98 (0.51-1.17) mg/dL Est Cr Clr Drug Dosing 72.42 mL/min Estimated GFR (MDRD) > 60 mL/min Glucose 137 H (70-110) mg/dL Calcium 8.2 L (8.7-10.3) mg/dL Vancomycin Trough (10-20) ug/mL [place] Results Last 24 Hours: Microbiology 11/16/17 15:26 Wound Culture - Preliminary Groin, Left 11/16/17 19:25 Urine Culture - Preliminary Urine, Bladder NO GROWTH AFTER 1 DAY Med Orders - Current: Current Medications Acetaminophen (Tylenol) 650 mg PO Q4H PRN PRN Reason: pain - fever Last Admin: 11/16/17 21:16 Dose: 650 mg Benzonatate (Tessalon Perles) 200 mg PO TID PRN PRN Reason: Cough Enoxaparin Sodium (Lovenox) 150 mg SUBCUT DAILY [facility] Last Admin: 11/18/17 08:18 Dose: 150 mg Ergocalciferol (Vitamin D2) 50,000 units PO Fr@0900 [facility] Guaifenesin/Phenylephrine HCl (Robitussin Dm) 10 ml PO Q4H PRN PRN Reason: Cough Last Admin: 11/17/17 23:09 Dose: 10 ml Dextrose/Sodium Chloride (Dextrose 5%-1/2 Ns) 1,000 mls @ 75 mls/hr IV ASDIRECTED [facility] Last Admin: 11/17/17 12:40 Dose: 75 mls/hr Piperacillin/Tazobactam/Dextrose (Zosyn In Dextrose Iso-Osmotic 3.375 Gm) 50 mls @ 100 mls/hr IV Q6H [facility] Last Admin: 11/18/17 05:00 Dose: 100 mls/hr Vancomycin HCl 1.75 gm/ Sodium (Chloride) 250 mls @ 100 mls/hr IV Q12H [facility] Last Admin: 11/18/17 07:56 Dose: 100 mls/hr Multivitamins/Minerals (Centrum) 1 tab PO DAILY [facility] Last Admin: 11/18/17 08:18 Dose: 1 tab Omeprazole (Omeprazole) 20 mg PO ACBREAKFAST [facility] Last Admin: 11/18/17 08:18 Dose: 20 mg Ondansetron HCl (Zofran Odt) 8 mg PO TID PRN PRN Reason: NAUSEA Senna/Docusate Sodium (Senna Plus) 1 tab PO DAILY PRN PRN Reason: Constipation Simvastatin (Zocor) 10 mg PO BEDTIME [facility] Last Admin: 11/17/17 21:01 Dose: 10 mg Sodium Chloride (Syrex Flush) 5 ml FLUSH Q8HR PRN PRN Reason: Keep Vein Open Vancomycin HCl (Pharmacy To Dose - Vancomycin) 1 dose .XX ASDIRECTED [facility] Venlafaxine HCl (Effexor Xr) 150 mg PO DAILY [facility] Last Admin: 11/18/17 08:19 Dose: 150 mg Zolpidem Tartrate (Ambien) 10 mg PO BEDTIME PRN PRN Reason: Sleep Last Admin: 11/17/17 21:07 Dose: 10 mg Discontinued Medications Piperacillin Sod/Tazobactam (Sod 3.375 gm/ Sodium Chloride) 50 mls @ 100 mls/ hr IV Q6H [facility] Vancomycin HCl 1.5 gm/ Sodium (Chloride) 250 mls @ 166.667 mls/hr IV Q12H [facility] Vancomycin HCl 1.5 gm/ Sodium (Chloride) 280 mls @ 112 mls/hr IV Q12H [facility] Last Admin: 11/18/17 07:30 Dose: Not Given - Exam General: Alert, Oriented, Cooperative, No Acute Distress Lungs: Clear to Auscultation (Crackles at the left base heard yesterday are gone.) Cardiovascular: Regular Rate, Regular Rhythm, No Murmurs Extremities: Normal Inspection Wound/Incisions: Other (Dressing was recently placed over groin wound so I did not remove that to look at it today.) - Problem List & Annotations (1) Neutropenic fever SNOMED Code(s): 230812438 Code(s): D70.9 - NEUTROPENIA, UNSPECIFIED; R50.81 - FEVER PRESENTING WITH CONDITIONS CLASSIFIED ELSEWHERE Status: Acute Current Visit: Yes (2) Mantle cell lymphoma SNOMED Code(s): 545818754 Code(s): C83.10 - MANTLE CELL LYMPHOMA, UNSPECIFIED SITE Status: Acute Current Visit: Yes (3) Brachial plexopathy Status: Acute Current Visit: Yes (4) Factor V Leiden SNOMED Code(s): 230841588 Code(s): D68.51 - ACTIVATED PROTEIN C RESISTANCE Status: Acute Current Visit: Yes (5) Hypothyroidism SNOMED Code(s): 62351259 Code(s): E03.9 - HYPOTHYROIDISM, UNSPECIFIED Status: Acute Current Visit : Yes (6) Hyperlipidemia SNOMED Code(s): 72916810 Code(s): E78.5 - HYPERLIPIDEMIA, UNSPECIFIED Status: Acute Current Visit : Yes (7) Acid reflux SNOMED Code(s): 866532545 Code(s): K21.9 - GASTRO-ESOPHAGEAL REFLUX DISEASE WITHOUT ESOPHAGITIS Status: Acute Current Visit: Yes (8) Depression SNOMED Code(s): 55935421 Code(s): F32.9 - MAJOR DEPRESSIVE DISORDER, SINGLE EPISODE, UNSPECIFIED Status: Acute Current Visit: Yes (9) Protein C deficiency SNOMED Code(s): 69366187 Code(s): D68.59 - OTHER PRIMARY THROMBOPHILIA Status: Acute Current Visit : Yes (10) Skin abscess SNOMED Code(s): 93614599 Code(s): L02.91 - CUTANEOUS ABSCESS, UNSPECIFIED Status: Acute Current Visit: Yes (11) Pneumonia SNOMED Code(s): 998469025 Code(s): J18.9 - PNEUMONIA, UNSPECIFIED ORGANISM Status: Acute Current Visit: Yes (12) Hyperglycemia SNOMED Code(s): 97084349 Code(s): R73.9 - HYPERGLYCEMIA, UNSPECIFIED Status: Acute Current Visit: No - Problem List Review Problem List Initiated/Reviewed/Updated: Yes - My Orders Last 24 Hours: My Active Orders 11/18/17 08:27 A1C [GLYCOSYLATED HEMOGLOBIN,HGBA1C] [CHEM] Routine 11/18/17 08:38 Chest 2V [CR] Routine Benzonatate [Tessalon Perles] 200 mg PO TID PRN 11/19/17 05:11 BMP [BASIC METABOLIC PANEL,BMP] [CHEM] AM CBC WITH AUTO DIFF [HEME] AM 11/20/17 05:11 BMP [BASIC METABOLIC PANEL,BMP] [CHEM] AM CBC WITH AUTO DIFF [HEME] AM 11/21/17 05:11 BMP [BASIC METABOLIC PANEL,BMP] [CHEM] AM CBC WITH AUTO DIFF [HEME] AM 11/22/17 05:11 BMP [BASIC METABOLIC PANEL,BMP] [CHEM] AM CBC WITH AUTO DIFF [HEME] AM - Assessment Assessment:: Neutropenia fever. Perihilar developing pneumonia. Hyperglycemia. Skin abscess of left groin. NHL, mantle cell. Acid Reflux. Depression. Factor V Leiden. Protein C deficiency. Hx of DVT. Hyperlipidemia. 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 - Plan Plan:: Neutropenia fever. Vancomycin and zosyn. [place]far[place] cultures. Daily labs. Vancomycin trough was low and so his dose has been adjusted. Perihilar developing pneumonia. Antibiotics as above. Cultures as above. Due to coughing last night that did not respond to cough syrup will start benzonatate and repeat CXR today. Hyperglycemia. A1C today. Skin abscess of left groin. Culture obtained, antibiotics as above. Will narrow spectrum with culture results are back. NHL, mantle cell. Currently in remission. Acid Reflux. Continue omeprazole. Depression. Continue venlafaxine. Factor V Leiden. Enoxaparin. Protein C deficiency. Enoxaparin. Hx of DVT. Enoxaparin. Hyperlipidemia. Continue simvastatin. 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 No additional treatment. He follows with neurology at [facility].
--- NOTE | 2017-11-18 16:13 | PCM.SN ---
- Free Text/Narrative Note: I did visit with Jadiel and Alisa today about his code status. Initially he was admitted as DNR/DNI but after contemplating that further he wanted to be full code. I discussed with him and his about what the different code levels mean and how aggressive or not aggressive the levels are. He and his voiced understanding and do wish for Jadiel to be full code. They do understand that this can be changed at any time if his circumstances change.
[2017-11-18] MEDS: Simvastatin 10 MG Tab PO SCH (20:24)
[2017-11-18] MEDS: Zolpidem 5 MG Tab PO PRN (21:25)
[2017-11-19] MEDS: Benzonatate 100 MG Cap PO PRN ×2 (00:16→21:31)
[2017-11-19] MEDS: Dextrose 5%-0.45% NaCl 1,000 ML IV SCH ×2 (00:18→18:31)
[2017-11-19] MEDS: guaiFENesin/Dextromethorphan 100-10 MG/5 ML Soln 5 ML Cup PO PRN ×2 (03:22→19:46)
[2017-11-19] MEDS: Piperacillin/Tazobactam/Dext 50 ML IV SCH ×8 (05:38→23:44)
[2017-11-19] MEDS: Omeprazole 20 MG Cap.CR PO SCH (08:08)
[2017-11-19] MEDS: Multivitamins with Minerals/Iron/Folic Acid/Lycopene Tab PO SCH (08:08)
[2017-11-19] MEDS: Enoxaparin 150 MG/1 ML Syringe SUBCUT SCH (08:08)
[2017-11-19] MEDS: Venlafaxine 150 MG Cap.ER PO SCH (08:08)
[2017-11-19 08:16] LABS: CHLORIDE,CL 108 mmol/L (98-115); SODIUM,NA 146 mmol/L (136-145)
[2017-11-19] MEDS: Simvastatin 10 MG Tab PO SCH (21:30)
[2017-11-19] MEDS: Zolpidem 5 MG Tab PO PRN (21:31)
[2017-11-20] MEDS: Piperacillin/Tazobactam/Dext 50 ML IV SCH ×2 (04:44)
[2017-11-20] MEDS: Omeprazole 20 MG Cap.CR PO SCH (06:44)
[2017-11-20 06:50] VITALS: BP 117/71
[2017-11-20 08:06] LABS: CHLORIDE,CL 107 mmol/L (98-115); SODIUM,NA 145 mmol/L (136-145)
--- NOTE | 2017-11-20 08:06 | PN ---
11/19/2017PATIENT NAME: SURYA ACHARYA ADDENDUM: An addendum to the progress note that I already dictated. PERTINENT LAB DATA: From today, his white blood cell count is 1.2. Red blood cell count is 3.0. Hemoglobin is 11.0 and hematocrit 34.1. The absolute neutrophil count is 0.4. This is stable as is his white blood cell count. Sodium is 146, which is slightly elevated with a normal being 135 to 145. Potassium is normal at 3.8. BUN and creatinine are normal at 12 and 0.94 with a GFR of greater than 60. His glucose today is 120. Calcium is slightly low at 8.6. Hemoglobin A1c was checked yesterday and found to be 5.9. He may be in a prediabetic state at this time. The patient is going to try diet modification as well as weight loss to hopefully improve his glucose readings. /[id number]/MODL
[2017-11-20] MEDS: Multivitamins with Minerals/Iron/Folic Acid/Lycopene Tab PO SCH (08:33)
[2017-11-20] MEDS: Enoxaparin 150 MG/1 ML Syringe SUBCUT SCH (08:33)
[2017-11-20] MEDS: Venlafaxine 150 MG Cap.ER PO SCH (08:33)
--- NOTE | 2017-11-20 08:39 | PN ---
11/19/2017PATIENT NAME: SURYA ACHARYA SUBJECTIVE: This is a 72-year-old male, who was admitted to the hospital on November 16, 2017. He was admitted with diagnosis of neutropenic fever and perihilar infiltrates concerning for pneumonia. He also had a wound in his left groin that was draining and has been cultured. Preliminary culture report shows a Pseudomonas as well as Klebsiella, which do have sensitivities back and are sensitive to the antibiotics that he is receiving. There is also coagulase- negative Staph with final sensitivities pending. The patient states he is feeling better. He was finally able to give us a sputum culture. Preliminary report on the sputum culture is negative, this was just collected yesterday. Urine culture is final and shows no growth after 2 days. He has a fair angio swabs for influenza A and B were negative on the . He has been afebrile for the past 24 plus hours. Overall, he is feeling better. He is being treated with Zosyn as well as vancomycin. A chest x-ray was repeated yesterday and showed some worsening of the infiltrates and new infiltrates in the bases. PHYSICAL EXAMINATION: VITAL SIGNS: His temp is 98.7, pulse 61, respirations 18, blood pressure 112/66, his oxygen saturation is 93% on room air. SKIN: Warm and dry to touch. CARDIAC: Exam reveals S1, S2 to be normal. Rate and rhythm are regular. No murmur, click, or gallop is auscultated. LUNGS: Clear without rales, wheezes, or rhonchi. Left groin ulceration/sore is approximately 1 cm in diameter in the left groin. It is draining some clear serosanguineous drainage. On the day of his admission, there was quite a bit of induration surrounding the ulceration. This has improved. There is trace pedal edema. IMPRESSION: 1. Neutropenic fever. He has been afebrile for 24 plus hours. 2. Perihilar infiltrates concerning for pneumonia as well as bibasilar infiltrates seen on chest x-ray yesterday. He will continue on Zosyn as well as vancomycin. We will entertain possible discharge for tomorrow. This will be at the discretion of Dr. Kristine Rajan. We are still waiting final report on the coagulase-negative Staphylococcus cultured on the left groin ulceration. It did grow out Pseudomonas as well as Klebsiella and the sensitivities are back; however, the final MICs are not. I did discuss the antibiotic of choice for discharge with the pharmacist and she will work in collaboration with Dr. Kristine Boo and I to determine the best discharge antibiotics. /[id number]/MODL
[2017-11-20] MEDS ORDERED: ERGOCALCIFEROL 50000 UNIT PO SCH (09:00)
--- NOTE | 2017-11-20 09:04 | PCM.DCSUM1 ---
Discharge Summary - Hospital Course Free Text/Narrative:: Jadiel is being discharged today from an inpatient stay. He was admitted on 11/16 with fever, chills, body aches and cough. He also had a lesion in his right groin. He was admitted with neutropenic fever. CXR showed questionable perihilar infiltrate. He was started on Vancomycin and Zosyn. 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 He has been off chemotherapy for close to 4 months. His [facility] clinicians want him to "ride it out" until his bone marrow recovers on it's own. He has been hospitalized with febrile neutropenia in the past. Repeat CXR on 11/18/17 showed mildly progressive bibasilar infiltrates. Sputum and blood cultures negative to date. His cough has improved and he is less SOB. Groin wound grew out pseudomonas and klebsiella. Both are sensitive to levofloxacin. Given his chronically suppressed WBC I am going to discharge him on levofloxacin 750 mg PO daily indefinitely, until his WBC recovers. This should cover lung infection and will cover his groin infection. No evidence that the groin lesion is tunneling. No other medication changes were made during this stay. He is putting a folded up 4x4 gauze in his groin to minimize rubbing on the skin. No other dressings were used in this area. He will keep it clean and dry. - Discharge Data Discharge Date: 11/20/17 Discharge Disposition: Home, Self-Care 01 Condition: Good - Discharge Diagnosis/Problem(s) (1) Neutropenic fever SNOMED Code(s): 682925424 ICD Code: D70.9 - NEUTROPENIA, UNSPECIFIED; R50.81 - FEVER PRESENTING WITH CONDITIONS CLASSIFIED ELSEWHERE Status: Acute Current Visit: Yes (2) Mantle cell lymphoma SNOMED Code(s): 429798018 ICD Code: C83.10 - MANTLE CELL LYMPHOMA, UNSPECIFIED SITE Status: Acute Current Visit: Yes (3) Brachial plexopathy Status: Acute Current Visit: Yes (4) Factor V Leiden SNOMED Code(s): 211737527 ICD Code: D68.51 - ACTIVATED PROTEIN C RESISTANCE Status: Acute Current Visit: Yes (5) Hypothyroidism SNOMED Code(s): 91766865 ICD Code: E03.9 - HYPOTHYROIDISM, UNSPECIFIED Status: Acute Current Visit : Yes (6) Hyperlipidemia SNOMED Code(s): 87640854 ICD Code: E78.5 - HYPERLIPIDEMIA, UNSPECIFIED Status: Acute Current Visit : Yes (7) Acid reflux SNOMED Code(s): 069610389 ICD Code: K21.9 - GASTRO-ESOPHAGEAL REFLUX DISEASE WITHOUT ESOPHAGITIS Status: Acute Current Visit: Yes (8) Depression SNOMED Code(s): 86290156 ICD Code: F32.9 - MAJOR DEPRESSIVE DISORDER, SINGLE EPISODE, UNSPECIFIED Status: Acute Current Visit: Yes (9) Protein C deficiency SNOMED Code(s): 13105732 ICD Code: D68.59 - OTHER PRIMARY THROMBOPHILIA Status: Acute Current Visit: Yes (10) Skin abscess SNOMED Code(s): 92537447 ICD Code: L02.91 - CUTANEOUS ABSCESS, UNSPECIFIED Status: Acute Current Visit: Yes (11) Pneumonia SNOMED Code(s): 658262620 ICD Code: J18.9 - PNEUMONIA, UNSPECIFIED ORGANISM Status: Acute Current Visit: Yes (12) Hyperglycemia SNOMED Code(s): 74134405 ICD Code: R73.9 - HYPERGLYCEMIA, UNSPECIFIED Status: Acute Current Visit : No - Patient Summary/Data Consults: Consultations 11/16/17 16:45 Consult to Licensed Practical Nurse [CONS] Routine - Patient Instructions Diet: Regular Diet as Tolerated Activity: As Tolerated Wound/Incision Care: Change Dressing Daily Notify Provider of: Fever, Swelling and Redness, Drainage - Discharge Plan Prescriptions/Med Rec: Levofloxacin 750 mg PO DAILY #30 tablet Home Medications: Home Meds Omeprazole 20 mg PO ACBREAKFAST 04/18/17 [History] Sennosides/Docusate Sodium [Senna-S] 1 tab PO DAILY PRN 04/18/17 [History] Simvastatin [Zocor] 10 mg PO BEDTIME 04/18/17 [History] Venlafaxine [Effexor XR] 150 mg PO DAILY 04/18/17 [History] Zolpidem [Ambien] 10 mg PO BEDTIME PRN 05/14/17 [History] Enoxaparin Sodium [Lovenox] 150 mg SUBCUT DAILY 09/02/17 [History] Ondansetron [Zofran Odt] 8 mg PO TID PRN 09/02/17 [History] Cholecalciferol (Vitamin D3) [Vitamin D] 50,000 unit PO FR@0800 10/09/17 [ History] Multivit with Calcium,Iron,Min [Essential Daily] 1 tab PO DAILY 10/09/17 [ History] Levofloxacin 750 mg PO DAILY #30 tablet 11/20/17 [Rx] - Discharge Summary/Plan Comment DC Time >30 min.: No - General Info Date of Service: 11/20/17 - Review of Systems Systems Review Comment: 10 point ROS obtained, all pertinent positives listed in the HPI, all other systems are negative. - Patient Data Vitals - Most Recent: Last Vital Signs Temp 96.6 F 11/20/17 06:49 Pulse 72 11/20/17 08:30 Resp 20 11/20/17 06:49 BP 117/71 11/20/17 06:49 Pulse Ox 96 11/20/17 08:30 Weight - Most Recent: 303 lb 6.4 oz I&O - Last 24 hours: Intake & Output 11/19/17 11/20/17 11/20/17 22:59 06:59 14:59 Intake Total 1824 1326 Output Total 300 1100 Balance 1524 226 Lab Results - Last 24 hrs: Laboratory Results - last 24 hr 11/19/17 11/20/17 Range/Units 18:45 07:30 Sodium 145 (136-145) mmol/L Potassium 4.3 (3.3-5.3) mmol/L Chloride 107 (98-115) mmol/L Carbon Dioxide 29.0 (21.0-32.0) mmol/L BUN 11 (6-25) mg/dL Creatinine 0.98 (0.51-1.17) mg/dL Est Cr Clr Drug Dosing 72.42 mL/min Estimated GFR (MDRD) > 60 mL/min Glucose 124 H (70-110) mg/dL Calcium 8.4 L (8.7-10.3) mg/dL Vancomycin Trough 16.4 (10-20) ug/mL [facility] Results - Last 24 hrs: Microbiology 11/16/17 15:26 Wound Culture - Final Groin, Left Pseudomonas Aeruginosa Klebsiella Pneumoniae Staphylococcus Coagulase Neg 11/18/17 19:06 Gram Stain - Final Sputum - Expectorated Sputum Culture - Preliminary No Growth Med Orders - Current: Current Medications Acetaminophen (Tylenol) 650 mg PO Q4H PRN PRN Reason: pain - fever Last Admin: 11/16/17 21:16 Dose: 650 mg Benzonatate (Tessalon Perles) 200 mg PO TID PRN PRN Reason: Cough Last Admin: 11/19/17 21:31 Dose: 200 mg Enoxaparin Sodium (Lovenox) 150 mg SUBCUT DAILY [facility] Last Admin: 11/20/17 08:33 Dose: 150 mg Ergocalciferol (Vitamin D2) 50,000 units PO Fr@0900 [facility] Last Admin: 11/20/17 08:33 Dose: 50,000 units Guaifenesin/Phenylephrine HCl (Robitussin Dm) 10 ml PO Q4H PRN PRN Reason: Cough Last Admin: 11/19/17 19:46 Dose: 10 ml Dextrose/Sodium Chloride (Dextrose 5%-1/2 Ns) 1,000 mls @ 75 mls/hr IV ASDIRECTED [facility] Last Admin: 11/19/17 18:31 Dose: 75 mls/hr Piperacillin/Tazobactam/Dextrose (Zosyn In Dextrose Iso-Osmotic 3.375 Gm) 50 mls @ 100 mls/hr IV Q6H [facility] Last Admin: 11/20/17 04:44 Dose: 100 mls/hr Vancomycin HCl 1.75 gm/ Sodium (Chloride) 250 mls @ 100 mls/hr IV Q12H [facility] Last Admin: 11/20/17 06:42 Dose: 100 mls/hr Multivitamins/Minerals (Centrum) 1 tab PO DAILY [facility] Last Admin: 11/20/17 08:33 Dose: 1 tab Omeprazole (Omeprazole) 20 mg PO ACBREAKFAST [facility] Last Admin: 11/20/17 06:44 Dose: 20 mg Ondansetron HCl (Zofran Odt) 8 mg PO TID PRN PRN Reason: NAUSEA Senna/Docusate Sodium (Senna Plus) 1 tab PO DAILY PRN PRN Reason: Constipation Simvastatin (Zocor) 10 mg PO BEDTIME [facility] Last Admin: 11/19/17 21:30 Dose: 10 mg Sodium Chloride (Syrex Flush) 5 ml FLUSH Q8HR PRN PRN Reason: Keep Vein Open Vancomycin HCl (Pharmacy To Dose - Vancomycin) 1 dose .XX ASDIRECTED [facility] Venlafaxine HCl (Effexor Xr) 150 mg PO DAILY [facility] Last Admin: 11/20/17 08:33 Dose: 150 mg Zolpidem Tartrate (Ambien) 10 mg PO BEDTIME PRN PRN Reason: Sleep Last Admin: 11/19/17 21:31 Dose: 10 mg Discontinued Medications Piperacillin Sod/Tazobactam (Sod 3.375 gm/ Sodium Chloride) 50 mls @ 100 mls/ hr IV Q6H [facility] Vancomycin HCl 1.5 gm/ Sodium (Chloride) 250 mls @ 166.667 mls/hr IV Q12H [facility] Vancomycin HCl 1.5 gm/ Sodium (Chloride) 280 mls @ 112 mls/hr IV Q12H [facility] Last Admin: 11/18/17 07:30 Dose: Not Given - Exam General: Reports: Alert, Oriented, Cooperative, No Acute Distress Lungs: Reports: Clear to Auscultation, Normal Respiratory Effort Cardiovascular: Reports: Regular Rate, Regular Rhythm, No Murmurs Wound/Incisions: Reports: Other (He has a quarter size skin lesion in his right groin with slough on the top. No purulent drainage.) *Q Meaningful Use (DIS) - VTE *Q VTE Criteria *Q: - Stroke *Q Stroke Criteria *Q: - AMI *Q AMI Criteria *Q:
== END 2017-11-20 10:40 | disposition home or self-care (01) | DRG 808 ==
LOC: KA.OC 15:26 → KA.MS 16:08
PROVIDERS: ATTEND Internal Medicine
DX: D70.9 Neutropenia, unspecified (principal); J18.9 Pneumonia, unspecified organism; C83.10 Mantle cell lymphoma, unspecified site; G81.94 Hemiplegia, unspecified affecting left nondominant side; R91.8 Other nonspecific abnormal finding of lung field; R50.81 Fever presenting with conditions classified elsewhere; S31.109A Unspecified open wound of abdominal wall, unspecified quadrant without penetration into peritoneal cavity, initial encounter; Z66 Do not resuscitate; M79.1 Myalgia; Z88.8 Allergy status to other drugs, medicaments and biological substances; S31.104A Unspecified open wound of abdominal wall, left lower quadrant without penetration into peritoneal cavity, initial encounter; B96.5 Pseudomonas (aeruginosa) (mallei) (pseudomallei) as the cause of diseases classified elsewhere; B96.1 Klebsiella pneumoniae [K. pneumoniae] as the cause of diseases classified elsewhere; G54.0 Brachial plexus disorders; D68.51 Activated protein C resistance; E03.9 Hypothyroidism, unspecified; E78.5 Hyperlipidemia, unspecified; K21.9 Gastro-esophageal reflux disease without esophagitis; F32.9 Major depressive disorder, single episode, unspecified; D68.59 Other primary thrombophilia; R73.03 Prediabetes; R73.9 Hyperglycemia, unspecified; Z86.718 Personal history of other venous thrombosis and embolism; Z79.01 Long term (current) use of anticoagulants; Z79.899 Other long term (current) drug therapy
CPT/HCPCS: 36415; 71046; 80048; 80053; 80202; 83036; 85025; 87070; 87077; 87086; 87088; 87186; 87205; 87804; A9270-GY; J1642; J1650; J2543; J3370; J7042; J7050

== ENCOUNTER 2017-12-27 19:29 | Inpatient (IN) | payer MEDICARE, BC ==
--- NOTE | 2017-12-27 20:10 | EDM.PDOC ---
ED HPI GENERAL MEDICAL PROBLEM - General Stated Complaint: SHORT OF BREATH Time Seen by Provider: 12/27/17 19:44 Source of Information: Reports: Patient, Family () History Limitations: Reports: No Limitations - History of Present Illness INITIAL COMMENTS - FREE TEXT/NARRATIVE: Patient presents with weakness, dyspnea, fever and rash. All but the rash started this evening. The rash started 4 days ago as a reaction to contrast dye while at [facility] last Thursday. It was stable so he was sent home and he says the rash is no worse than it was then and the intense itching is now gone completely. However, this evening he tried to walk a few steps to a chair and couldn't; was extremely weak. He has recurrent lymphoma and has just started a new treatment (clinical trial) regimen. His doctor wants to be notified if he is taking any new medications. He has had neutropenic fever in the past but not since starting this new trial. - Related Data Allergies Allergy/AdvReac Type Severity Reaction Status Date / Time cefazolin Allergy Rash Verified 12/17/17 11:08 bednamustine Allergy Rash Uncoded 12/16/17 15:11 ct contrast Allergy Rash Uncoded 12/27/17 19:38 Home Meds: Home Meds Omeprazole 20 mg PO ACBREAKFAST 04/18/17 [History] Sennosides/Docusate Sodium [Senna-S] 1 tab PO DAILY PRN 04/18/17 [History] Simvastatin [Zocor] 10 mg PO BEDTIME 04/18/17 [History] Venlafaxine [Effexor XR] 150 mg PO DAILY 04/18/17 [History] Zolpidem [Ambien] 10 mg PO BEDTIME PRN 05/14/17 [History] Enoxaparin Sodium [Lovenox] 150 mg SUBCUT DAILY 09/02/17 [History] Ondansetron [Zofran Odt] 8 mg PO TID PRN 09/02/17 [History] Cholecalciferol (Vitamin D3) [Vitamin D] 50,000 unit PO FR@0800 10/09/17 [ History] Multivit with Calcium,Iron,Min [Essential Daily] 1 tab PO DAILY 10/09/17 [ History] Acetaminophen [Tylenol Extra Strength] 500 mg PO TID PRN 12/27/17 [History] Cetirizine [ZyrTEC] 10 mg PO DAILY 12/27/17 [History] Lenalidomide [Revlimid] 20 mg PO DAILY 12/27/17 [History] diphenhydrAMINE [Benadryl] 50 mg PO Q6HR PRN 12/27/17 [History] riTUXimab [Rituxan] 500 mg IV WEEKLY 12/27/17 [History] Past Medical History HEENT History: Reports: Impaired Vision Cardiovascular History: Reports: Blood Clots/VTE/DVT, High Cholesterol Other Cardiovascular History: left armpit blood clot with paralysis, right leg DVT on lovenox Respiratory History: Reports: Sleep Apnea Gastrointestinal History: Reports: None Genitourinary History: Reports: BPH Musculoskeletal History: Reports: None Psychiatric History: Reports: Anxiety, Depression Endocrine/Metabolic History: Reports: Obesity/BMI 30+ Hematologic History: Reports: Blood Transfusion(s) Immunologic History: Reports: Immunosuppression Oncologic (Cancer) History: Reports: Non-Hodgkin's Lymphoma Other Oncologic History: mantle cell lymphoma Other Dermatologic History: OPEN SORE IN LEFT GROIN. RIGHT TESTICLE HAS START OF SORE-BLACK HEAD - Infectious Disease History Infectious Disease History: Reports: Chicken Pox - Past Surgical History Head Surgeries/Procedures: Reports: None HEENT Surgical History: Reports: None Cardiovascular Surgical History: Reports: None, Vascular Surgery Respiratory Surgical History: Reports: None GI Surgical History: Reports: Appendectomy, Cholecystectomy Male Surgical History: Reports: None Endocrine Surgical History: Reports: None Musculoskeletal Surgical History: Reports: Other (See Below) Other Musculoskeletal Surgeries/Procedures:: Blood clot to left shoulder area that wasn't found early enough. Lost use of arm. Oncologic Surgical History: Reports: None Dermatological Surgical History: Reports: None Social & Family History - Family History Family Medical History: Noncontributory - Tobacco Use Smoking Status *Q: Former Smoker Years of Tobacco use: 15 Packs/Tins Daily: 1 Used Tobacco, but Quit: Yes Month Tobacco Last Used: 10 Second Hand Smoke Exposure: Yes - Caffeine Use Caffeine Use: Reports: Soda Other Caffeine Use: diet and regular - Recreational Drug Use Recreational Drug Use: No ED ROS GENERAL - Review of Systems Review Of Systems: See Below Constitutional: Reports: Fever, Malaise, Weakness, Diaphoresis HEENT: Denies: Throat Pain, Vision Change Respiratory: Reports: Cough. Denies: Shortness of Breath (he says he has no difficulty with breathing but feels extremely weak and secondarily dyspneic when he tries to walk) Cardiovascular: Denies: Chest Pain, Syncope GI/Abdominal: Denies: Abdominal Pain, Diarrhea, Vomiting : Reports: No Symptoms Musculoskeletal: Denies: Neck Pain, Shoulder Pain, Arm Pain, Back Pain, Hand Pain, Leg Pain, Foot Pain Skin: Reports: Pruritis, Rash. Denies: Cyanosis, Jaundice, Mottled, Pallor Neurological: Reports: Difficulty Walking. Denies: Confusion, Dizziness, Headache, Numbness, Seizure, Syncope, Trouble Speaking Psychiatric: Denies: Agitation, Anxiety, Confusion Hematologic/Lymphatic: Reports: Easy Bleeding (he is on Lovenox for a blood clot in left leg) ED EXAM, GENERAL - Physical Exam Exam: See Below Exam Limited By: No Limitations General Appearance: Alert, WD/WN, No Apparent Distress Eye Exam: Bilateral Eye: EOMI, Normal Inspection, PERRL Ears: Normal External Exam, Hearing Grossly Normal Nose: Normal Inspection, No Blood Throat/Mouth: Normal Inspection, Normal Lips, Normal Voice, No Airway Compromise Head: Atraumatic, Normocephalic Neck: Normal Inspection, Supple, Non-Tender, Full Range of Motion Respiratory/Chest: No Respiratory Distress, Lungs Clear, Normal Breath Sounds, No Accessory Muscle Use, Chest Non-Tender Cardiovascular: Normal Peripheral Pulses, Regular Rate, Rhythm, No JVD GI/Abdominal: Normal Bowel Sounds, Soft, Non-Tender, No Organomegaly Extremities: Pedal Edema (1=) Neurological: Alert, Oriented, Normal Cognition, No Motor/Sensory Deficits Psychiatric: Normal Affect, Normal Mood Skin Exam: Warm, Dry, Intact, Rash (urticarial rash covering his entire body that is confluent in many places of torso and legs) Course - Vital Signs Last Recorded V/S: Last Vital Signs Temp 102.3 F H 12/27/17 22:05 Pulse 112 H 12/27/17 22:05 Resp 32 H 12/27/17 22:05 BP 104/54 L 12/27/17 22:05 Pulse Ox 95 12/27/17 22:05 - Orders/Labs/Meds Orders: Active Orders 24 hr Category Date Time Status Chest 2V [CR] Stat Exams 12/27/17 20:02 Ordered CULTURE BLOOD [BC] Stat Lab 12/27/17 20:03 Received CULTURE BLOOD [BC] Stat Lab 12/27/17 20:45 Received Blood Culture x2 Reflex Set [OM.PC] Stat Oth 12/27/17 20:02 Ordered Medication Orders Piperacillin/Tazobactam/ (Dextrose 3.375 gm/ Premix) 50 mls @ 100 mls/hr IV Q6H [facility] Vancomycin HCl 1.5 gm/ Sodium (Chloride) 250 mls @ 166.667 mls/hr IV Q12H [facility] Vancomycin HCl (Pharmacy To Dose - Vancomycin) 1 dose .XX ASDIRECTED [facility] Labs: Laboratory Tests 12/27/17 12/27/17 12/27/17 Range/Units 20:03 20:03 20:45 WBC 15.8 H D (5.0-10.0) 10^3/uL RBC 5.05 (4.50-6.00) 10^6/uL Hgb 14.9 D (13.0-17.0) g/dL Hct 45.9 (40.0-52.0) % MCV 91.0 (82.0-92.0) fL MCH 29.5 (27.0-31.0) pg MCHC 32.4 (32.0-36.0) g/dL RDW 17.4 H (11.5-14.5) % Plt Count 182 (150-300) 10^3/uL MPV 9.2 (7.4-10.4) fL Add Manual Diff Yes Neutrophils % (Manual) 81 H (50-70) % Band Neutrophils % 14 H (4-12) % Lymphocytes % (Manual) 2 L (20-40) % Eosinophils % (Manual) 3 (1-3) % Absolute Neutrophils 15.0100 Lymphocytes # (Manual) 0.3160 Eosinophils # (Manual) 0.4740 Tear Drop Cells Occasional Elliptocytes Occasional Sodium 137 (136-145) mmol/L Potassium 3.8 (3.3-5.3) mmol/L Chloride 102 (98-115) mmol/L Carbon Dioxide 23.3 (21.0-32.0) mmol/L BUN 20 (6-25) mg/dL Creatinine 1.00 (0.51-1.17) mg/dL Est Cr Clr Drug Dosing 70.97 mL/min Estimated GFR (MDRD) > 60 mL/min Glucose 192 H (70-110) mg/dL Lactic Acid 2.8 H (0.4-2.0) mmol/L Calcium 7.7 L (8.7-10.3) mg/dL Meds: Medications Generic Name Dose Route Start Last Admin Trade Name Freq PRN Reason Stop Dose Admin Piperacillin/Tazobactam/ 50 mls @ 100 mls/hr 12/27/17 22:15 Dextrose 3.375 gm/ Premix IV Q6H [facility] Vancomycin HCl 1.5 gm/ Sodium 250 mls @ 166.667 mls/hr 12/27/17 23:00 Chloride IV Q12H [facility] Vancomycin HCl 1 dose 12/27/17 22:15 Pharmacy To Dose - Vancomycin .XX ASDIRECTED [facility] Discontinued Medications Generic Name Dose Route Start Last Admin Trade Name Freq PRN Reason Stop Dose Admin Acetaminophen Confirm 12/27/17 22:11 Tylenol Extra Strength Administered 12/27/17 22:12 Dose 1,000 mg .ROUTE .STK-MED ONE Sodium Chloride 1,000 mls @ 999 mls/hr 12/27/17 20:12 12/27/17 20:20 Normal Saline IV 12/27/17 21:12 999 mls/hr .BOLUS ONE Administration - Re-Assessments/Exams Free Text/Narrative Re-Assessment/Exam: 12/27/17 21:45 Lactic acid is 2.8, blood cultures are pending, WBC is 15.8 with ANC of 15.1, Neutrophils 81%, Bands 14% and Lymphocytes 2%. This is a new thing for Jadiel as he has had neutropenia many times. Discussed case with Dr. Causey at [facility] who is aware of pt's history and current clinical trial. He feels this is likely influenza. We will test for it. Dr. Causey recommends treating with Tamiflu if positive and if negative treating a presumed staph infection with Vanco and Cefepime as his severe rash could be a nidus. Without seeing the patient he would lean toward not treating with Abx if the influenza is positive if I feel this is appropriate. 12/27/17 22:25 Influenza A/B are negative. Blood pressure is running on the low side and we are starting a second liter of fluid. We will start Vanco and Zosyn ARNALDO. Patient has a questionable history of allergic reaction to Cefazolin so will avoid cephalosporins especially with a rash all over his body already. Discussed findings and treatment plan with patient and his and will admit for treatment. Discussed with Raya Cardona, his PCP who agrees to admit for treatment. Departure - Departure Time of Disposition: 22:22 Disposition: Admitted As Inpatient 68 Condition: Good Clinical Impression: Weakness generalized, Acute neutrophilia, Bandemia Fever Qualifiers: Fever type: unspecified Qualified Code(s): R50.9 - Fever, unspecified Hypotension Qualifiers: Hypotension type: unspecified hypotension type Qualified Code(s): I95.9 - Hypotension, unspecified - Discharge Information - My Orders Last 24 Hours: My Active Orders 12/27/17 20:02 Chest 2V [CR] Stat Blood Culture x2 Reflex Set [OM.PC] Stat 12/27/17 20:03 CULTURE BLOOD [BC] Stat 12/27/17 20:45 CULTURE BLOOD [BC] Stat - Assessment/Plan Last 24 Hours: My Active Orders 12/27/17 20:02 Chest 2V [CR] Stat Blood Culture x2 Reflex Set [OM.PC] Stat 12/27/17 20:03 CULTURE BLOOD [BC] Stat 12/27/17 20:45 CULTURE BLOOD [BC] Stat
[2017-12-27] MEDS ORDERED: Sodium Chloride 0.9% 1,000 ML IV ONE (20:12)
[2017-12-27 20:33] LABS: CHLORIDE,CL 102 mmol/L (98-115); SODIUM,NA 137 mmol/L (136-145)
[2017-12-27] MEDS ORDERED: Acetaminophen 500 MG Tab PO ONE (22:10)
[2017-12-27] MEDS ORDERED: Acetaminophen 500 MG Tab ONE (22:11)
[2017-12-27] MEDS: Piperacillin/Tazobactam/Dext 3.375 GM in Premix Bag 1 BAG IV SCH (22:58)
[2017-12-27] MEDS ORDERED: RITUXIMAB 500 MG/50 ML SCH (22:59)
[2017-12-27] MEDS ORDERED: Acetaminophen 500 MG Tab PO PRN (22:59)
[2017-12-27] MEDS ORDERED: Ondansetron 4 MG Tab.DIS PO PRN (22:59)
[2017-12-27] MEDS: diphenhydrAMINE 25 MG Cap PO PRN (23:32)
[2017-12-28] MEDS: Sodium Chloride 0.9% 1,000 ML IV SCH ×2 (01:00→11:30)
[2017-12-28] MEDS ORDERED: Sodium Chloride 0.9% 1,000 ML IV ONE (01:30)
[2017-12-28] MEDS: Hydrocortisone 1% Crm 30 GM Tube TOP PRN ×2 (03:30→23:09)
[2017-12-28] MEDS: diphenhydrAMINE 25 MG Cap PO PRN ×2 (03:42→13:34)
[2017-12-28] MEDS: Piperacillin/Tazobactam/Dext 3.375 GM in Premix Bag 1 BAG IV SCH ×4 (04:22→21:37)
[2017-12-28] MEDS: Omeprazole 20 MG Cap.CR PO SCH (08:00)
[2017-12-28] MEDS: Enoxaparin 150 MG/1 ML Syringe SUBCUT SCH (08:58)
[2017-12-28] MEDS: Venlafaxine 150 MG Cap.ER PO SCH (08:59)
[2017-12-28] MEDS: Cetirizine 10 MG Tab PO SCH (09:00)
[2017-12-28] MEDS ORDERED: Biotin/Folic Acid/Vitamin C/Vitamin B Complex Tab PO SCH (09:00)
[2017-12-28] MEDS ORDERED: LENALIDOMIDE 20 MG PO SCH (09:00)
[2017-12-28] MEDS ORDERED: Multivitamins with Minerals/Iron/Folic Acid/Lycopene Tab PO SCH (10:26)
[2017-12-28] MEDS: Multivitamins with Minerals/Iron/Folic Acid/Lycopene Tab PO SCH (11:20)
[2017-12-28] MEDS: methylPREDNISolone Sodium Succinate 125 MG/2 ML SDV IVPUSH SCH (13:28)
[2017-12-28] MEDS ORDERED: Magnesium Hydroxide 400 MG/5 ML Susp 30 ML Cup PO PRN (20:57)
[2017-12-28] MEDS ORDERED: Simvastatin 20 MG Tab PO SCH (21:00)
[2017-12-29] MEDS: Zolpidem 5 MG Tab PO PRN ×2 (00:10→20:45)
[2017-12-29] MEDS: diphenhydrAMINE 25 MG Cap PO PRN ×4 (00:10→21:09)
[2017-12-29] MEDS: Piperacillin/Tazobactam/Dext 3.375 GM in Premix Bag 1 BAG IV SCH ×4 (04:00→22:14)
[2017-12-29] MEDS: Omeprazole 20 MG Cap.CR PO SCH (07:50)
--- NOTE | 2017-12-29 08:07 | PN ---
12/28/2017PATIENT NAME: SURYA ACHARYA ADDENDUM: IMPRESSION AND PLAN: He also had a recent fall and has some deformity of his left wrist. He did not tolerate an x-ray at this point, but we may do that in the near future. His has brought in a brace from home for this. We will address this again tomorrow. /[id number]/MODL
--- NOTE | 2017-12-29 08:07 | PN ---
12/28/2017PATIENT NAME: SURYA ACHARYA SUBJECTIVE: This is a 72-year-old male who was admitted through the emergency room last evening, 12/27/2017. At the time of presentation, he was complaining of weakness, dyspnea, fever, and rash. He has become increasingly weak and has had some shortness of breath. He has a history of lymphoma and has just started on a new clinical trial regimen. He is often hospitalized for a neutropenic fever; however, this new clinical trial is supposed to avoid the profound neutropenia that the patient has had in the past. He has a severe and dramatic rash all over his body, which was initially attributed to contrast dye from a CAT scan that he received last week at [facility]. He was treated with Benadryl. He has been receiving Rituxan IV weekly as part of his lymphoma treatment. He is also taking oral Revlimid, the generic being lenalidomide. The ER provider contacted the oncologist at [facility] on-call and discussed the case with him. Dr. Garcia was quite positive that the patient had influenza; however, influenza A and B were negative. He recommended Tamiflu if positive, but since it was negative, he recommend treating a presumed Staph infection with Vancomycin and cefepime. His blood pressure in the emergency room was running low and they did give him 2 L of IV fluids. The patient reports today he just feels so profoundly fatigued. The rash is quite dramatic and covers his entire body. He denies any itching; however, he did receive 2 Benadryl 50 mg doses last evening and early this morning for the rash. Significant lab data from the emergency room showed an elevated white blood cell count of 15,800. ANC of 15. He did have a mild elevation of his neutrophils. The patient, to my knowledge, has not had an elevated white count like this for a long time. He is typically neutropenic with a very low white blood cell count. Hemoglobin was normal at 14.9, hematocrit was 45.9, platelet count was 182,000. Chemistry showed normal sodium, potassium. BUN and creatinine are normal at 20 and 1.0 with a GFR of greater than 60. His lactic acid was 2.8, calcium was 7.7. UA which was collected today actually was fairly negative. OBJECTIVE: VITAL SIGNS: His temperature was 99.3, pulse 115, respirations 20, blood pressure 109/79, oxygen saturation 96% on room air. SKIN: Warm and dry with a widely distributed, profound dramatic rash covering his entire body. It is dark red in color. It is not raised. There are no open areas or areas of desquamation. There is no peeling. It does not appear to have a secondary infection. It is not well like. There is no weeping or exudate. CARDIAC: Reveals S1, S2 to be normal. Rate and rhythm are regular. No murmur, click, or gallop is auscultated. LUNGS: Clear without rales, wheezes, or rhonchi. ABDOMEN: Soft, obese, nontender. Bowel sounds present in all four quadrants. He does have some mild pedal edema. IMPRESSION: Lymphoma with recent weakness, fever, and rash. He does have leukocytosis, which is new for the patient as well. He has recently started a new clinical trial which includes Revlimid and Rituxan. Prior to starting any new therapy, I did contact his oncologist at the [facility]. Dr. Pope recommended stopping the Revlimid and the Rituxan will be held at this time as well. I described the rash to him and we both agreed that this is unlikely that is a contrast dye allergy rash. To me it resembles a Pennington-Samir reaction; however, I have never clinically seen that in my experience, only in text books. Dr. Pope was concerned about dermatolysis. This is the reason for discontinuing his current clinical trial. I did suggest possibly treating the patient with IV steroids and Dr. Pope agreed with this. He cautioned me that this could worsen quite acutely, and if it did, he would like arrangements made for the patient to be transferred to the [facility]. He did request that photographs be taken and forwarded to him. The patient will continue on IV antibiotics, which were started last evening in the emergency room. He is receiving both vancomycin as well as Zosyn. He has been pancultured. We will follow him closely. Hopefully, the IV steroids will be of some benefit. The patient does complain of some shortness of breath; however, he states that he feels much better than he did yesterday. CBC and CMP will be repeated in the morning. /[id number]/MODL MTDD
[2017-12-29 08:16] LABS: CHLORIDE,CL 99 mmol/L (98-115); SODIUM,NA 132 mmol/L (136-145)
[2017-12-29] MEDS: Cetirizine 10 MG Tab PO SCH (09:05)
[2017-12-29] MEDS: methylPREDNISolone Sodium Succinate 125 MG/2 ML SDV IVPUSH SCH (09:05)
[2017-12-29] MEDS: Enoxaparin 150 MG/1 ML Syringe SUBCUT SCH (09:05)
[2017-12-29] MEDS: Venlafaxine 150 MG Cap.ER PO SCH (09:05)
[2017-12-29] MEDS: Multivitamins with Minerals/Iron/Folic Acid/Lycopene Tab PO SCH (09:05)
[2017-12-29] MEDS: Hydrocortisone 1% Crm 30 GM Tube TOP PRN ×2 (10:19→21:11)
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
[2017-12-29] MEDS: Sodium Chloride 0.9% 1,000 ML IV SCH (15:31)
[2017-12-29] MEDS: Simvastatin 10 MG Tab PO SCH (20:45)
[2017-12-30] MEDS: Sodium Chloride 0.9% 1,000 ML IV SCH ×2 (02:27→15:44)
[2017-12-30] MEDS: Piperacillin/Tazobactam/Dext 3.375 GM in Premix Bag 1 BAG IV SCH ×4 (04:09→21:11)
[2017-12-30] MEDS: diphenhydrAMINE 25 MG Cap PO PRN ×2 (04:30→23:25)
[2017-12-30] MEDS: Omeprazole 20 MG Cap.CR PO SCH (07:47)
[2017-12-30 08:15] LABS: CHLORIDE,CL 103 mmol/L (98-115); SODIUM,NA 136 mmol/L (136-145)
[2017-12-30] MEDS: Enoxaparin 150 MG/1 ML Syringe SUBCUT SCH (09:02)
[2017-12-30] MEDS: methylPREDNISolone Sodium Succinate 125 MG/2 ML SDV IVPUSH SCH (09:03)
[2017-12-30] MEDS: Multivitamins with Minerals/Iron/Folic Acid/Lycopene Tab PO SCH (09:09)
[2017-12-30] MEDS: Venlafaxine 150 MG Cap.ER PO SCH (09:09)
[2017-12-30] MEDS: Cetirizine 10 MG Tab PO SCH (09:09)
--- NOTE | 2017-12-30 15:22 | PN ---
12/30/2017 PATIENT NAME: SURYA ACHARYA DIMAS ADDENDUM: He had a fall prior to his admission to the hospital with some deformity of his left wrist. We did do an x-ray today, which showed moderate osteoarthritis with no fracture identified. /[id number]/MODL
[2017-12-30] MEDS ORDERED: methylPREDNISolone Sodium Succinate 125 MG/2 ML SDV IVPUSH ONE (18:00)
[2017-12-30] MEDS: Simvastatin 10 MG Tab PO SCH (21:09)
[2017-12-30] MEDS: Zolpidem 5 MG Tab PO PRN (21:09)
[2017-12-31] MEDS: Hydrocortisone 1% Crm 30 GM Tube TOP PRN (00:57)
[2017-12-31] MEDS: Piperacillin/Tazobactam/Dext 3.375 GM in Premix Bag 1 BAG IV SCH (04:55)
[2017-12-31] MEDS: diphenhydrAMINE 25 MG Cap PO PRN (05:58)
[2017-12-31] MEDS: Sodium Chloride 0.9% 1,000 ML IV SCH (06:02)
[2017-12-31 06:34] VITALS: BP 107/52
[2017-12-31] MEDS: Omeprazole 20 MG Cap.CR PO SCH (07:40)
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
[2017-12-31] MEDS: Cetirizine 10 MG Tab PO SCH (09:21)
[2017-12-31] MEDS: Venlafaxine 150 MG Cap.ER PO SCH (09:21)
[2017-12-31] MEDS: Multivitamins with Minerals/Iron/Folic Acid/Lycopene Tab PO SCH (09:21)
[2017-12-31] MEDS: Enoxaparin 150 MG/1 ML Syringe SUBCUT SCH (09:22)
[2017-12-31] MEDS: methylPREDNISolone Sodium Succinate 125 MG/2 ML SDV IVPUSH SCH (10:00)
[2017-12-31 10:26] LABS: CHLORIDE,CL 107 mmol/L (98-115); SODIUM,NA 140 mmol/L (136-145)
[2018-01-01] MEDS ORDERED: ERGOCALCIFEROL 50000 UNIT PO SCH (08:00)
--- NOTE | 2018-01-01 08:07 | DISCH ---
This is a 72-year-old male who was admitted to the emergency room on 12/27/2017 with dyspnea, fever, weakness, and rash. The most common picture for this patient who is frequently hospitalized is a neutropenic fever; however, he had recently started a new study drug for lymphoma. He was taking Rituxan as well as Revlimid. Both of these agents have been stopped during his hospitalization due to the fact that it was suspected that these caused a very dramatic and profound rash which now has improved considerably after stopping the medication and giving intravenous Solu-Medrol. The patient has a history of lymphoma and has tried many medications and has suffered with the side effects of his chemotherapy in the form of neutropenia. Upon admission, his white count was quite elevated at 15.8. It actually continued to increase. On 12/29/2017, his white blood cell count was 16.4 and this has now trended downward to 15.1 and continues to be 14.2. He is slightly anemic at 10.4. We did give him plenty of IV fluids during his hospitalization. Another concern that kept the patient in the hospital for an extended period of time was elevated lactic acid. It went as high as 3.1 and then acquiesced to 1.5 and now 1.7 today. This patient had one day where his renal function was elevated and this may have been related to some intravascular dehydration/prerenal cause and/or vancomycin. This did normalize at 1.04 and 0.91 on respective days yesterday and today. He has improved considerably, and his rash looks much better. It is receding. It has started peeling in some areas; however, I am not worried about desquamation. Initially, I was quite concerned that this looked like a Pennington-Samir rash, but however, it has improved considerably. He never did have any compromise of his airway, whatsoever. I have been in contact with his oncologist down at the [facility] and he is planning to drive by car today to the [facility]. He has an appointment with a director of workforce development tomorrow, and he also has an appointment with his oncologist, Dr. Pope. The patient was pancultured. The blood cultures were negative for growth on final. He did have cultures of his left leg and left arm, and it showed no organisms seen. He also had influenza A and B testing, which were both negative. He was treated with IV antibiotics namely Zosyn as well as vancomycin. He was given IV steroids and will be discharged with a steroid taper. EXAMINATION,: VITAL SIGNS: Temp is 98.9, pulse 64, respirations 18, blood pressure 107/52, AND oxygen saturation is 98% on room air. SKIN: Warm and dry to touch with a receding rash that was much worse a couple of days ago. He has responded to IV steroids very well. There does not appear to be any secondary infection. There are weeping areas of the posterior aspects of his left lower leg as well as his right lower leg and also the posterior aspect of his left arm; however, I do not identify any secondary infection. CARDIAC: Reveals S1 and S2 to be normal. Rate and rhythm are regular. No murmur, click, or gallop is auscultated. LUNGS: Clear without rales, wheezes, or rhonchi. ABDOMEN: Soft. It is obese, nontender. Bowel sounds present in all four quadrants. He does have some mild pedal edema. IMPRESSION: 1. Lymphoma for which he recently started a new clinical trial. It was originally thought to be a contrast dye allergy; however, it seems to have been related to the Revlimid and/or Rituxan. He was taken off the clinical study. This will be readdressed when he sees his oncologist tomorrow at [place]. 2. Rash covering the entire body, which appeared to be a drug eruption rather than a contrast dye allergy. This has improved considerably with Solu- Medrol. He was treated daily with Solu-Medrol starting on 12/28/2017 with the permission of his oncologist. He did get two doses of Solu-Medrol yesterday and the rash has continued to recede and look much better. 3. Elevated creatinine that has normalized and resolved. 4. Elevated lactic acid. This has resolved. 5. Leukocytosis. White count is trending downward, however, it is still somewhat elevated. This may be related to steroids. The patient is typically neutropenic, so this is quite new for him. They will continue to follow this at [place] as well. 6. Recent fall with a left wrist injury. We did x-ray that wrist yesterday and that was negative. He will continue on all of his home medications with the exception of the Revlimid and Rituxan. He will be sent home with a tapering dose of steroids. His is planning to drive him to the [facility] tomorrow with Dermatology and Oncology followup appointments tomorrow. We have been in excellent contact and communication with the [facility], and they have been instrumental and very helpful with the care of this patient while he was hospitalized. He will follow up when he returns from [place]. /[id number]/MODL
== END 2017-12-31 11:10 | disposition home or self-care (01) | DRG 948 ==
LOC: KA.ED 19:29 → KA.MS 21:50
PROVIDERS: ADMIT Physician Assistant Surgical; ATTEND Internal Medicine
DX: R53.1 Weakness (principal); I95.9 Hypotension, unspecified; R50.9 Fever, unspecified; C85.90 Non-Hodgkin lymphoma, unspecified, unspecified site; D72.0 Genetic anomalies of leukocytes; D72.825 Bandemia; L27.1 Localized skin eruption due to drugs and medicaments taken internally; T36.8X5A Adverse effect of other systemic antibiotics, initial encounter; Y92.019 Unspecified place in single-family (private) house as the place of occurrence of the external cause; W18.30XA Fall on same level, unspecified, initial encounter; M25.532 Pain in left wrist; R94.4 Abnormal results of kidney function studies; R74.0 Nonspecific elevation of levels of transaminase and lactic acid dehydrogenase [LDH]; E78.00 Pure hypercholesterolemia, unspecified; F03.90 Unspecified dementia, unspecified severity, without behavioral disturbance, psychotic disturbance, mood disturbance, and anxiety; F41.8 Other specified anxiety disorders; Z88.8 Allergy status to other drugs, medicaments and biological substances; Z91.041 Radiographic dye allergy status; Z79.899 Other long term (current) drug therapy; Z86.718 Personal history of other venous thrombosis and embolism; Z87.891 Personal history of nicotine dependence
CPT/HCPCS: 36415; 71046; 73110-LT; 80048; 80053; 80202; 81003; 83605; 85025; 87040; 87070; 87804; 99285; A9270-GY; J1642; J1650; J2543; J2930; J3370; J7030; J7050

== ENCOUNTER 2018-12-17 13:21 | Emergency (ER) | payer MEDICARE, BC ==
[2018-12-17] MEDS ORDERED: Famotidine 20 MG/2 ML SDV IVPUSH ONE (13:48)
[2018-12-17] MEDS ORDERED: diphenhydrAMINE 50 MG/ML SDV IVPUSH ONE (13:48)
[2018-12-17] MEDS ORDERED: methylPREDNISolone Sodium Succinate 125 MG/2 ML SDV IVPUSH ONE (13:48)
--- NOTE | 2018-12-17 13:54 | EDM.PDOC ---
ED HPI GENERAL MEDICAL PROBLEM - General Chief Complaint: Allergic Reaction Stated Complaint: ALLERGIC REACTION Time Seen by Provider: 12/17/18 13:30 Source of Information: Reports: Patient History Limitations: Reports: No Limitations - History of Present Illness INITIAL COMMENTS - FREE TEXT/NARRATIVE: 73 YO WM presents to ER with generalized rash and mild facial swelling which began yesterday. Pt reports he had an MRI with contrast 2 days ago, but was premedicated with a steroid due to previous reactions to contrast. Pt states he was fine until he got home and began to notice redness to his skin and feeling flush. Pt reports when he woke this am he had swelling around his eyes and his upper lip felt swollen prompting ER evaluation. Pt denies shortness of breath or difficulty in breathing. No lightheadedness, no nausea/vomiting. Pt states this is the same rash he developed after IV contrast in the past. Onset Date: 12/16/18 Duration: Day(s): (2) Location: Reports: Generalized Severity: Mild Improves with: Reports: None Worsens with: Reports: None Associated Symptoms: Reports: No Other Symptoms. Denies: Chest Pain, Cough, Fever/Chills, Nausea/Vomiting, Shortness of Breath, Syncope, Weakness Treatments ORTHOPEDIC RADIOLOGIC TECHNOLOGIST: Reports: Other Medication(s) (benadryl 50mg 2 hours ORTHOPEDIC RADIOLOGIC TECHNOLOGIST) - Related Data Allergies Allergy/AdvReac Type Severity Reaction Status Date / Time cefazolin Allergy Rash Verified 12/17/18 13:50 bednamustine Allergy Rash Uncoded 08/21/18 11:43 ct contrast Allergy Rash Uncoded 08/21/18 11:43 Home Meds: Home Meds Omeprazole 10 mg PO ACBREAKFAST 04/18/17 [History] Simvastatin [Zocor] 10 mg PO BEDTIME 04/18/17 [History] Venlafaxine [Effexor XR] 225 mg PO DAILY 04/18/17 [History] Zolpidem [Ambien] 10 mg PO BEDTIME PRN 05/14/17 [History] Ondansetron [Zofran Odt] 8 mg PO TID PRN 09/02/17 [History] Multivit with Calcium,Iron,Min [Essential Daily] 1 tab PO DAILY 10/09/17 [ History] Acetaminophen [Tylenol Extra Strength] 500 mg PO TID PRN 12/27/17 [History] Cetirizine [ZyrTEC] 10 mg PO DAILY 12/27/17 [History] Lenalidomide [Revlimid] 10 mg PO DAILY 08/21/18 [History] Rivaroxaban [Xarelto] 20 mg PO 1200 08/21/18 [History] Famotidine [Pepcid] 20 mg PO BID #20 tab 12/17/18 [Rx] Sennosides [Senna] 1 tab PO DAILY 12/17/18 [History] predniSONE [Prednisone] 20 mg PO DAILY #15 tablet 12/17/18 [Rx] Past Medical History HEENT History: Reports: Impaired Vision Cardiovascular History: Reports: Blood Clots/VTE/DVT, High Cholesterol Other Cardiovascular History: left armpit blood clot with paralysis, right leg DVT on lovenox Respiratory History: Reports: Sleep Apnea Gastrointestinal History: Reports: None Genitourinary History: Reports: BPH Musculoskeletal History: Reports: None Psychiatric History: Reports: Anxiety, Depression Endocrine/Metabolic History: Reports: Obesity/BMI 30+ Hematologic History: Reports: Blood Transfusion(s) Immunologic History: Reports: Immunosuppression Oncologic (Cancer) History: Reports: Non-Hodgkin's Lymphoma Other Oncologic History: mantle cell lymphoma Other Dermatologic History: OPEN SORE IN LEFT GROIN. RIGHT TESTICLE HAS START OF SORE-BLACK HEAD - Infectious Disease History Infectious Disease History: Reports: Chicken Pox - Past Surgical History Head Surgeries/Procedures: Reports: None HEENT Surgical History: Reports: None Cardiovascular Surgical History: Reports: None, Vascular Surgery Respiratory Surgical History: Reports: None GI Surgical History: Reports: Appendectomy, Cholecystectomy Male Surgical History: Reports: None Endocrine Surgical History: Reports: None Musculoskeletal Surgical History: Reports: Other (See Below) Other Musculoskeletal Surgeries/Procedures:: Blood clot to left shoulder area that wasn't found early enough. Lost use of arm. Oncologic Surgical History: Reports: None Dermatological Surgical History: Reports: None Social & Family History - Family History Family Medical History: Noncontributory - Caffeine Use Caffeine Use: Reports: Soda Other Caffeine Use: diet and regular ED ROS ALLERGIC REACTION - Review of Systems Review Of Systems: See Below Constitutional: Reports: No Symptoms HEENT: Reports: No Symptoms. Denies: Throat Swelling Respiratory: Reports: No Symptoms Cardiovascular: Reports: No Symptoms Endocrine: Reports: No Symptoms GI/Abdominal: Reports: No Symptoms : Reports: No Symptoms Musculoskeletal: Reports: No Symptoms Skin: Reports: Erythema. Denies: Urticaria Neurological: Reports: No Symptoms Psychiatric: Reports: No Symptoms Hematologic/Lymphatic: Reports: No Symptoms Immunologic: Reports: No Symptoms ED EXAM GENERAL NO PERIP PULSE - Physical Exam Exam: See Below Exam Limited By: No Limitations General Appearance: Alert, WD/WN, No Apparent Distress Ears: Normal External Exam, Normal Canal, Hearing Grossly Normal, Normal TMs Nose: Normal Inspection, Normal Mucosa, No Blood Throat/Mouth: Normal Inspection, Normal Lips, Normal Teeth, Normal Gums, Normal Oropharynx, Normal Voice, No Airway Compromise Head: Atraumatic, Normocephalic Neck: Normal Inspection, Supple, Non-Tender, Full Range of Motion Respiratory/Chest: No Respiratory Distress, Lungs Clear, Normal Breath Sounds, No Accessory Muscle Use, Chest Non-Tender Cardiovascular: Normal Peripheral Pulses, Regular Rate, Rhythm, No Edema, No Gallop, No JVD, No Murmur, No Rub GI/Abdominal: Normal Bowel Sounds, Soft, Non-Tender, No Organomegaly, No Distention, No Abnormal Bruit, No Mass Back Exam: Normal Inspection, Full Range of Motion, NT Extremities: Normal Inspection, Normal Range of Motion, Non-Tender, Normal Capillary Refill, No Pedal Edema Neurological: Alert, Oriented, CN II-XII Intact, Normal Cognition, Normal Gait, Normal Reflexes, No Motor/Sensory Deficits Psychiatric: Normal Affect, Normal Mood Skin Exam: Warm, Dry, Intact, Erythema, Increased Warmth. No: Normal Color, No Rash Lymphatic: No Adenopathy Course - Vital Signs Last Recorded V/S: Last Vital Signs Temp 36.6 C 12/17/18 13:47 Pulse 76 12/17/18 13:47 Resp 20 12/17/18 13:47 BP 133/73 12/17/18 13:47 Pulse Ox 96 12/17/18 13:47 - Orders/Labs/Meds Meds: Medications Discontinued Medications Generic Name Dose Route Start Last Admin Trade Name Eduardoq PRN Reason Stop Dose Admin Diphenhydramine HCl 25 mg 12/17/18 13:48 12/17/18 14:03 Benadryl IVPUSH 12/17/18 13:49 25 mg ONETIME ONE Administration Famotidine 20 mg 12/17/18 13:48 12/17/18 14:14 Pepcid IVPUSH 12/17/18 13:49 20 mg ONETIME ONE Administration Methylprednisolone Sodium Succinate 125 mg 12/17/18 13:48 12/17/18 14:08 Solu-Medrol IVPUSH 12/17/18 13:49 125 mg ONETIME ONE Administration - Radiology Interpretation Free Text/Narrative:: rash improved after medication. Pt states he feels better and wants to go home Departure - Departure Time of Disposition: 14:56 Disposition: Home, Self-Care 01 Condition: Good Clinical Impression: Allergic reaction Qualifiers: Encounter type: initial encounter Qualified Code(s): T78.40XA - Allergy, unspecified, initial encounter - Discharge Information Prescriptions: Famotidine [Pepcid] 20 mg PO BID #20 tab predniSONE [Prednisone] 20 mg PO DAILY #15 tablet Instructions: Allergies, Adult, [id number], Seafood Allergy Referrals: Kristine Mike MD [Primary Care Provider] - Forms: ED Department Discharge Additional Instructions: 1. discharge home 2. prednisone 60mg PO QD 3. benadryl 50mg PO Q6 4. pepcid 20mg PO BID 5. follow up in clinic in 5-7 days for recheck after medications are completed to be sure symptoms don't return 6. return to ER for worsening symptoms - Assessment/Plan Assessment:: 1. acute allergic reaction to contrast Plan: 1. discharge home 2. prednisone 60mg PO QD 3. benadryl 50mg PO Q6 4. pepcid 20mg PO BID 5. follow up in clinic in 5-7 days for recheck after medications are completed to be sure symptoms don't return 6. return to ER for worsening symptoms
[2018-12-17 14:57] VITALS: BP 122/75
== END 2018-12-17 15:22 | disposition home or self-care (01) ==
LOC: KA.ED 13:21
DX: L23.4 Allergic contact dermatitis due to dyes (principal); T50.8X5A Adverse effect of diagnostic agents, initial encounter; Z88.1 Allergy status to other antibiotic agents; Z79.899 Other long term (current) drug therapy; E66.9 Obesity, unspecified; Z90.49 Acquired absence of other specified parts of digestive tract
CPT/HCPCS: 96374; 96375; 99283; J1200; J1642; J2930; J3490

== ENCOUNTER 2019-06-06 18:43 | Emergency (ER) | payer MEDICARE, BC ==
[2019-06-06 18:54] VITALS: BP 117/53; PULSE 65
--- NOTE | 2019-06-06 19:21 | EDM.PDOC ---
ED HPI GENERAL MEDICAL PROBLEM - General Chief Complaint: Skin Complaint Stated Complaint: GROIN RASH Time Seen by Provider: 06/06/19 19:10 Source of Information: Reports: Patient History Limitations: Reports: No Limitations - History of Present Illness INITIAL COMMENTS - FREE TEXT/NARRATIVE: 74 YO WM presents to ER with complaints of rash to groin. Pt reports rash has been going on for awhile but became worse over the last 2 days. Pt reports he's taking a chemo medication that makes him sweat a lot under his arms and in his groin. Today pt noticed some skin breakdown to his scrotum prompting ER evaluation. Pt reports rash is red, inflamed and itchy. Pt denies any fever/ chills, no shortness of breath, dizziness or dysphagia. Onset: Unknown/Unsure Duration: Week(s): Location: Reports: Other (Groin) Severity: Mild Improves with: Reports: None Worsens with: Reports: None Associated Symptoms: Reports: Rash. Denies: Fever/Chills, Nausea/Vomiting, Shortness of Breath - Related Data Allergies Allergy/AdvReac Type Severity Reaction Status Date / Time cefazolin Allergy Rash Verified 06/06/19 18:54 bednamustine Allergy Rash Uncoded 06/06/19 18:54 ct contrast Allergy Rash Uncoded 06/06/19 18:54 Home Meds: Home Meds Omeprazole 40 mg PO ACBREAKFAST 04/18/17 [History] Simvastatin [Zocor] 10 mg PO BEDTIME 04/18/17 [History] Venlafaxine [Effexor XR] 225 mg PO DAILY 04/18/17 [History] Zolpidem [Ambien] 5 mg PO BEDTIME PRN 05/14/17 [History] Multivit with Calcium,Iron,Min [Essential Daily] 1 tab PO DAILY 10/09/17 [ History] Acetaminophen [Tylenol Extra Strength] 500 - 1,000 mg PO TID PRN 12/27/17 [ History] Rivaroxaban [Xarelto] 20 mg PO 1200 08/21/18 [History] Sennosides [Senna] 1 tab PO DAILY PRN 12/17/18 [History] Cholecalciferol (Vitamin D3) [Vitamin D3] 1,000 units PO DAILY 06/06/19 [History ] Lenalidomide [Revlimid] 10 mg PO DAILY 06/06/19 [History] Metoprolol Succinate 25 mg PO 1200 06/06/19 [History] Nystatin [Nystatin Ointment] 60 gm TOP TID #1 tube 06/06/19 [Rx] Past Medical History HEENT History: Reports: Impaired Vision Cardiovascular History: Reports: Blood Clots/VTE/DVT, High Cholesterol Other Cardiovascular History: left armpit blood clot with paralysis, right leg DVT on lovenox Respiratory History: Reports: Sleep Apnea Gastrointestinal History: Reports: None Genitourinary History: Reports: BPH Musculoskeletal History: Reports: None Psychiatric History: Reports: Anxiety, Depression Endocrine/Metabolic History: Reports: Obesity/BMI 30+ Hematologic History: Reports: Blood Transfusion(s) Immunologic History: Reports: Immunosuppression Oncologic (Cancer) History: Reports: Non-Hodgkin's Lymphoma Other Oncologic History: mantle cell lymphoma Other Dermatologic History: OPEN SORE IN LEFT GROIN. RIGHT TESTICLE HAS START OF SORE-BLACK HEAD - Infectious Disease History Infectious Disease History: Reports: Chicken Pox - Past Surgical History Head Surgeries/Procedures: Reports: None HEENT Surgical History: Reports: None Cardiovascular Surgical History: Reports: None, Vascular Surgery Respiratory Surgical History: Reports: None GI Surgical History: Reports: Appendectomy, Cholecystectomy Male Surgical History: Reports: None Endocrine Surgical History: Reports: None Musculoskeletal Surgical History: Reports: Other (See Below) Other Musculoskeletal Surgeries/Procedures:: Blood clot to left shoulder area that wasn't found early enough. Lost use of arm. Oncologic Surgical History: Reports: None Dermatological Surgical History: Reports: None Social & Family History - Family History Family Medical History: Noncontributory - Caffeine Use Caffeine Use: Reports: Soda Other Caffeine Use: diet and regular ED ROS GENERAL - Review of Systems Review Of Systems: See Below Constitutional: Reports: No Symptoms HEENT: Reports: No Symptoms Respiratory: Reports: No Symptoms Cardiovascular: Reports: No Symptoms Endocrine: Reports: No Symptoms GI/Abdominal: Reports: No Symptoms : Reports: No Symptoms Musculoskeletal: Reports: No Symptoms Skin: Reports: Rash, Erythema Neurological: Reports: No Symptoms Psychiatric: Reports: No Symptoms Hematologic/Lymphatic: Reports: No Symptoms Immunologic: Reports: No Symptoms ED EXAM, SKIN/RASH Exam: See Below Exam Limited By: No Limitations General Appearance: Alert, WD/WN, No Apparent Distress Throat/Mouth: Normal Inspection, Normal Lips, Normal Teeth, Normal Gums, Normal Oropharynx, Normal Voice, No Airway Compromise Head: Atraumatic, Normocephalic Neck: Normal Inspection, Supple, Non-Tender, Full Range of Motion Respiratory/Chest: No Respiratory Distress, Lungs Clear, Normal Breath Sounds, No Accessory Muscle Use, Chest Non-Tender Cardiovascular: Normal Peripheral Pulses, Regular Rate, Rhythm, No Edema, No Gallop, No JVD, No Murmur, No Rub GI/Abdominal: Normal Bowel Sounds, Soft, Non-Tender, No Organomegaly, No Distention, No Abnormal Bruit, No Mass Back Exam: Normal Inspection, Full Range of Motion, NT Extremities: Normal Inspection, Normal Range of Motion, Non-Tender, No Pedal Edema, Normal Capillary Refill Neurological: Alert, Oriented, CN II-XII Intact, Normal Cognition, Normal Gait, Normal Reflexes, No Motor/Sensory Deficits Psychiatric: Normal Affect, Normal Mood Skin: Warm, Erythema, Increased Warmth, Rash Location, Skin: Genital, Groin Characteristics: Maculopapular Associated features: Warmth Lymphatic: No Adenopathy Course - Vital Signs Last Recorded V/S: Last Vital Signs Temp 36.6 C 06/06/19 18:50 Pulse 65 06/06/19 18:50 Resp 18 06/06/19 18:50 BP 117/53 L 06/06/19 18:50 Pulse Ox 95 06/06/19 18:50 - Orders/Labs/Meds Orders: Active Orders 24 hr Category Date Time Status Nystatin [Nystatin Ointment] Med 06/06/19 19:45 Ordered 15 gm TOP TID Medication Orders Nystatin (Nystatin Ointment) 15 gm TOP TID [facility] Meds: Medications Generic Name Dose Route Start Last Admin Trade Name Freq PRN Reason Stop Dose Admin Nystatin 15 gm 06/06/19 19:45 Nystatin Ointment TOP TID GIFTY Discontinued Medications Generic Name Dose Route Start Last Admin Trade Name Freq PRN Reason Stop Dose Admin Nystatin 30 gm 06/06/19 21:00 Nystatin Ointment TOP TID GIFTY Departure - Departure Time of Disposition: 19:49 Disposition: Home, Self-Care 01 Condition: Good Clinical Impression: Tinea cruris - Discharge Information Prescriptions: Nystatin [Nystatin Ointment] 60 gm TOP TID #1 tube Instructions: Robert Itch Referrals: Kristine Mike MD [Primary Care Provider] - Forms: ED Department Discharge Additional Instructions: 1. discharge home 2. nystatin ointment TID to affected area x 4 weeks 3. follow up in clinic for further evaluation and treatment 4. return to ER for worsening symptoms - My Orders Last 24 Hours: My Active Orders 06/06/19 19:45 Nystatin [Nystatin Ointment] 15 gm TOP TID - Assessment/Plan Last 24 Hours: My Active Orders 06/06/19 19:45 Nystatin [Nystatin Ointment] 15 gm TOP TID Assessment:: 1. Tinea Cruis Plan: 1. discharge home 2. nystatin ointment TID to affected area x 4 weeks 3. follow up in clinic for further evaluation and treatment 4. return to ER for worsening symptoms
[2019-06-06] MEDS ORDERED: Nystatin Ointment 15 GM Tube TOP SCH ×2 (19:45→21:00)
== END 2019-06-06 20:00 | disposition home or self-care (01) ==
LOC: KA.ED 18:43
DX: B35.6 Tinea cruris (principal); E78.00 Pure hypercholesterolemia, unspecified; F41.9 Anxiety disorder, unspecified; F32.9 Major depressive disorder, single episode, unspecified; Z91.041 Radiographic dye allergy status; Z88.1 Allergy status to other antibiotic agents; Z88.8 Allergy status to other drugs, medicaments and biological substances; Z79.899 Other long term (current) drug therapy
CPT/HCPCS: 99282; 99284

== ENCOUNTER 2021-04-15 17:07 | Emergency (ER) | payer MEDICARE, BC ==
--- NOTE | 2021-04-15 17:18 | EDM.PDOC ---
ED HPI GENERAL MEDICAL PROBLEM - General Chief Complaint: Back Pain or Injury Stated Complaint: FALL WITH LOWER BACK PAIN Time Seen by Provider: 04/15/21 17:18 Source of Information: Reports: Patient, EMS - History of Present Illness INITIAL COMMENTS - FREE TEXT/NARRATIVE: Jadiel, 76-year-old male, presents by ambulance after he was trimming a branch with a saw while standing on his pickup box rail. As the branch was cut he then lost his balance/jump down landing with both feet onto the ground causing immediate lower back pain. He initially thought there was radiation but states it is pain only across the lumbar back. States history of some back issues but is never had major concerns but was sensitive to position or activity. He denies loss of consciousness, striking his head or neck, or any other injury. Onset: Today, Sudden Duration: Minutes:, Constant Location: Reports: Back Quality: Reports: Ache, Burning, Sharp Severity: Moderate Improves with: Reports: None Worsens with: Reports: Movement Context: Reports: Activity Lower Back Pain Score (Numeric/FACES): 5 - Related Data Allergies Allergy/AdvReac Type Severity Reaction Status Date / Time cefazolin Allergy Rash Verified 02/13/21 13:44 Gadolinium-Containing Allergy Edema Verified 04/15/21 17:19 Contrast Medi Iodinated Contrast Media Allergy Rash Verified 04/15/21 17:19 polymyxin B Allergy Cannot Verified 04/15/21 17:19 Remember bednamustine Allergy Rash Uncoded 02/13/21 13:44 ct contrast Allergy Rash Uncoded 02/13/21 13:44 Home Meds: Home Meds Omeprazole 40 mg PO ACBREAKFAST 04/18/17 [History] Simvastatin [Zocor] 10 mg PO BEDTIME 04/18/17 [History] Venlafaxine [Effexor XR] 300 mg PO DAILY 04/18/17 [History] Zolpidem [Ambien] 5 mg PO BEDTIME PRN 05/14/17 [History] Multivit with Calcium,Iron,Min [Essential Daily] 1 tab PO DAILY 10/09/17 [History] Acetaminophen [Tylenol Extra Strength] 500 - 1,000 mg PO Q6H PRN 12/27/17 [History] Rivaroxaban [Xarelto] 20 mg PO 1200 08/21/18 [History] Cholecalciferol (Vitamin D3) [Vitamin D3] 1,000 units PO DAILY 06/06/19 [History] Metoprolol Succinate 25 mg PO 1200 06/06/19 [History] Hydrocodone/Acetaminophen [Hydrocodone-Acetamin 10-325 mg] 1 each PO 5XDAY 3 Days #15 tablet 04/15/21 [Rx] Loperamide [Imodium] 2 mg PO ASDIRECTED PRN 04/15/21 [History] Sennosides/Docusate Sodium [Senna-S] 1 tab PO BID PRN 04/15/21 [History] diphenhydrAMINE [Benadryl] 50 mg PO Q6H PRN 04/15/21 [History] lisinopriL [Lisinopril] 10 mg PO DAILY 04/15/21 [History] Past Medical History HEENT History: Reports: Impaired Vision Cardiovascular History: Reports: Blood Clots/VTE/DVT, High Cholesterol Other Cardiovascular History: left armpit blood clot with paralysis, right leg DVT on lovenox Respiratory History: Reports: Sleep Apnea Gastrointestinal History: Reports: None Genitourinary History: Reports: BPH Musculoskeletal History: Reports: None Neurological History: Reports: Other (See Below) Other Neuro History: 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 RIGHT TESTICLE HAS START OF SORE-BLACK HEAD - Infectious Disease History Infectious Disease History: Reports: Chicken Pox - Past Surgical History Head Surgeries/Procedures: Reports: None HEENT Surgical History: Reports: None Cardiovascular Surgical History: Reports: None, Vascular Surgery Respiratory Surgical History: Reports: None GI Surgical History: Reports: Appendectomy, Cholecystectomy Male Surgical History: Reports: None Endocrine Surgical History: Reports: None Neurological Surgical History: Reports: None Musculoskeletal Surgical History: Reports: Other (See Below) Other Musculoskeletal Surgeries/Procedures:: Blood clot to left shoulder area that wasn't found early enough. Lost use of arm. Oncologic Surgical History: Reports: None Dermatological Surgical History: Reports: None Social & Family History - Family History Family Medical History: No Pertinent Family History - Tobacco Use Tobacco Use Status *Q: Former Tobacco User - Caffeine Use Caffeine Use: Reports: Soda Other Caffeine Use: diet and regular ED ROS GENERAL - Review of Systems Review Of Systems: Comprehensive ROS is negative, except as noted in HPI. ED EXAM, GENERAL - Physical Exam Exam: See Below Free Text/Narrative:: Alert, oriented male laying in left lateral position on the cart. HEENT is negative discharge or deformity he is able to speak with no difficulty. There is no cyanosis nor pallor noted. Neck is soft supple no tenderness of the paraspinal muscles nor cervical spine process. Thorax is clear throughout mildly diminished bases. Cardiac is regular Abdomen is rotund no tenderness with bowel sounds present. There is tenderness in the lumbar spine in the L1to 3 region mild to L5, with no radiation into the legs. He is able to move the feet upon command with sensation noted and capillary refill 2 seconds. No radiculopathy noted. Noted scattered abrasions to the forearms which he attributes to striking the branches of the limb. Course - Vital Signs Last Recorded V/S: Last Vital Signs Temp 96.9 F 04/15/21 17:19 Pulse 61 04/15/21 17:19 Resp 16 04/15/21 17:19 BP 102/47 L 04/15/21 17:19 Pulse Ox 94 L 04/15/21 17:19 - Orders/Labs/Meds Meds: Medications Discontinued Medications Generic Name Dose Route Start Last Admin Trade Name Eduardoq PRN Reason Stop Dose Admin Hydrocodone Bitart/Acetaminophen 3 tab 04/15/21 18:18 04/15/21 18:28 Acetaminophen/Hydrocodone 325-5 Mg Tab PO 04/15/21 18:19 Not Given ONETIME ONE Diphtheria/Tetanus/Acell Pertussis 0.5 ml 04/15/21 17:36 04/15/21 18:28 Diphtheria,Pertussis(Acell),Tetanus Vaccine 0.5 Ml Syringe IM 04/15/21 17:37 0.5 ml .ONCE ONE Administration Heparin Sodium (Porcine) 500 units 04/15/21 18:32 04/15/21 18:38 Heparin Sodium 100 Units/Ml 5 Ml Syringe FLUSH 04/15/21 18:33 500 units ONETIME ONE Administration Ketorolac Tromethamine 60 mg 04/15/21 17:21 04/15/21 18:27 Ketorolac 60 Mg/2 Ml Sdv IM 04/15/21 17:22 Not Given ONETIME ONE Ketorolac Tromethamine 60 mg 04/15/21 17:39 04/15/21 17:31 Ketorolac 30 Mg/Ml Sdv IVPUSH 04/15/21 17:40 60 mg ONETIME ONE Administration Sodium Chloride 20 ml 04/15/21 18:32 04/15/21 18:37 Sodium Chloride 0.9% 20 Ml Sdv FLUSH 04/15/21 18:33 20 ml ONETIME ONE Administration Departure - Departure Time of Disposition: 18:24 Disposition: Home, Self-Care 01 Condition: Good Clinical Impression: Lumbar back pain Abrasion of forearm, right Qualifiers: Encounter type: initial encounter Qualified Code(s): S50.811A - Abrasion of right forearm, initial encounter Abrasion of forearm, left Qualifiers: Encounter type: initial encounter Qualified Code(s): S50.812A - Abrasion of left forearm, initial encounter - Discharge Information *PRESCRIPTION DRUG MONITORING PROGRAM REVIEWED*: Not Applicable *COPY OF PRESCRIPTION DRUG MONITORING REPORT IN PATIENT PHIL: Not Applicable Prescriptions: Hydrocodone/Acetaminophen [Hydrocodone-Acetamin 10-325 mg] 1 each PO 5XDAY 3 Days #15 tablet Instructions: Back Injury Prevention, [id number], Muscle Strain, [id number], Pain Medicine Instructions, [id number] Forms: ED Department Discharge Additional Instructions: Hydrocodone 1 every 4 hours as needed for pain. 3 pills will be sent home with you tonight. There will be a prescription at [facility] for you for the next 3 days. Call the clinic to arrange recheck and the possibility of physical therapy if you are not showing improvement in the next 24 hours. You may rotate heat or ice to the area. You may develop spasming make sure that you slowly move when first awakening. Recheck at the clinic or return to the emergency department as needed Continue all your medications as directed Sepsis Event Note (ED) - Focused Exam Vital Signs: Vital Signs Temp Pulse Resp BP Pulse Ox 04/15/21 17:19 96.9 F 61 16 102/47 L 94 L - Problem List & Annotations (1) Lumbar back pain SNOMED Code(s): 130356716 Code(s): M54.5 - LOW BACK PAIN Status: Acute Priority: High (2) Abrasion of forearm, left SNOMED Code(s): 047603840 Code(s): S50.812A - ABRASION OF LEFT FOREARM, INITIAL ENCOUNTER Status: Acute Priority: High Qualifiers: Encounter type: initial encounter Qualified Code(s): S50.812A - Abrasion of left forearm, initial encounter (3) Abrasion of forearm, right SNOMED Code(s): 284239545 Code(s): S50.811A - ABRASION OF RIGHT FOREARM, INITIAL ENCOUNTER Status: Acute Priority: High Qualifiers: Encounter type: initial encounter Qualified Code(s): S50.811A - Abrasion of right forearm, initial encounter - Problem List Review Problem List Initiated/Reviewed/Updated: Yes - Assessment/Plan Plan: .Hydrocodone 1 every 4 hours as needed for pain. 3 pills will be sent home with you tonight. There will be a prescription at [facility] for you for the next 3 days. Call the clinic to arrange recheck and the possibility of physical therapy if you are not showing improvement in the next 24 hours. You may rotate heat or ice to the area. You may develop spasming make sure that you slowly move when first awakening. Recheck at the clinic or return to the emergency department as needed Continue all your medications as directed
[2021-04-15] MEDS ORDERED: Ketorolac 60 MG/2 ML SDV IM ONE (17:21)
[2021-04-15 17:22] VITALS: BP 102/47; PULSE 61
[2021-04-15] MEDS ORDERED: Diphtheria,Pertussis(Acell),Tetanus Vaccine 0.5 ML Syringe IM ONE (17:36)
[2021-04-15] MEDS ORDERED: Ketorolac 30 MG/ML SDV IVPUSH ONE (17:39)
--- NOTE | 2021-04-15 18:05 | CR ---
[id number] RAD/RAD Lumbar Spine 2-3V EXAM: AP AND LATERAL LUMBAR SPINE. INDICATION: Fall, lumbar pain. COMPARISON: No previous similar exam is available for comparison. FINDINGS: No acute fracture or subluxation is seen. Chronic appearing compression deformity of the L2 vertebral body with approximately 20% loss of body height. Multilevel degenerative changes of the lumbar spine including loss of disc space height, endplate osteophytosis and facet arthropathy. Findings are most pronounced at L1-L2. The pedicles are intact. Vascular calcifications. IMPRESSION: NO ACUTE FRACTURE OR SUBLUXATION. Boston San DO 04/15/21 1806 Thank you for allowing us to participate in the care of your patient.
[2021-04-15] MEDS ORDERED: Acetaminophen/HYDROcodone 325-5 MG Tab PO ONE (18:18)
[2021-04-15] MEDS ORDERED: Sodium Chloride 0.9% 20 ML SDV FLUSH ONE (18:32)
== END 2021-04-15 18:50 | disposition home or self-care (01) ==
LOC: KA.ED 17:07
DX: S50.812A Abrasion of left forearm, initial encounter (principal); S50.811A Abrasion of right forearm, initial encounter; M54.5 Low back pain; E78.00 Pure hypercholesterolemia, unspecified; E66.9 Obesity, unspecified; Z68.39 Body mass index [BMI] 39.0-39.9, adult; Z79.899 Other long term (current) drug therapy; Z79.01 Long term (current) use of anticoagulants; Z87.891 Personal history of nicotine dependence; Z23 Encounter for immunization; W01.0XXA Fall on same level from slipping, tripping and stumbling without subsequent striking against object, initial encounter
CPT/HCPCS: 72100; 90471; 90715; 96374; 99283; 99283-25; A9270-GY; J1642; J1885

== ENCOUNTER 2023-02-21 19:34 | Emergency (ER) | payer MEDICARE, BC ==
[2023-02-21] MEDS ORDERED: Sodium Chloride 0.9% 10 ML Syringe FLUSH PRN (19:48)
[2023-02-21] MEDS ORDERED: Albuterol/Ipratropium 3.0-0.5 MG/3 ML Neb Soln NEB ONE (20:15)
[2023-02-21 20:18] LABS: ANION GAP 9.5 mmol/L (5-15)
[2023-02-21 20:25] VITALS: BP 149/85
[2023-02-21] MEDS ORDERED: Levofloxacin/Dextrose 5%-Water 750 MG in Premix Bag 1 BAG IV ONE (20:59)
[2023-02-21 21:08] VITALS: PULSE 68
[2023-02-21] MEDS ORDERED: Sodium Chloride 0.9% 50 ML IV SCH (22:00)
[2023-02-21] MEDS ORDERED: Levofloxacin 500 MG Tab PO ONE (23:18)
== END 2023-02-21 23:35 | disposition home or self-care (01) ==
LOC: KA.ED 19:34
DX: J84.9 Interstitial pulmonary disease, unspecified (principal); I44.0 Atrioventricular block, first degree; E78.00 Pure hypercholesterolemia, unspecified; E66.9 Obesity, unspecified; Z68.41 Body mass index [BMI] 40.0-44.9, adult; Z91.048 Other nonmedicinal substance allergy status; Z88.1 Allergy status to other antibiotic agents; Z88.8 Allergy status to other drugs, medicaments and biological substances; Z91.041 Radiographic dye allergy status
CPT/HCPCS: 36415; 71045; 80053; 84484; 85025; 87040; 93005; 93010; 94640; 96365; 99284; 99285-25; A9270-GY; J1956; J3490; J7620-GY

== ENCOUNTER 2023-12-15 07:58 | Day surgery (SDC) | payer MEDICARE, OTHER ==
[2023-12-15] MEDS ORDERED: Propofol 200 MG/20 ML SDV IV ONE (07:59)
[2023-12-15] MEDS ORDERED: Sodium Chloride 0.9% 10 ML Syringe FLUSH PRN (08:00)
[2023-12-15] MEDS: Lactated Ringers 1,000 ML IV SCH (08:10)
[2023-12-15] MEDS ORDERED: Propofol 200 MG/20 ML SDV ONE ×2 (09:37→10:14)
[2023-12-15] MEDS ORDERED: Midazolam 1 MG/ML 2 ML SDV ONE (09:37)
[2023-12-15] MEDS ORDERED: Lactated Ringers 1,000 ML ONE (10:30)
[2023-12-15 13:09] VITALS: BP 119/79; PULSE 68
== END 2023-12-15 12:14 | disposition home or self-care (01) ==
LOC: KA.SDS 07:58
PROVIDERS: ATTEND Family Medicine
DX: Z12.11 Encounter for screening for malignant neoplasm of colon (principal); K64.8 Other hemorrhoids; K57.30 Diverticulosis of large intestine without perforation or abscess without bleeding; E78.2 Mixed hyperlipidemia; K21.9 Gastro-esophageal reflux disease without esophagitis; N40.1 Benign prostatic hyperplasia with lower urinary tract symptoms; I42.7 Cardiomyopathy due to drug and external agent; D68.51 Activated protein C resistance; G47.33 Obstructive sleep apnea (adult) (pediatric); M81.0 Age-related osteoporosis without current pathological fracture; F32.9 Major depressive disorder, single episode, unspecified; M16.10 Unilateral primary osteoarthritis, unspecified hip; E66.01 Morbid (severe) obesity due to excess calories; Z68.41 Body mass index [BMI] 40.0-44.9, adult; Z79.01 Long term (current) use of anticoagulants; Z79.899 Other long term (current) drug therapy
CPT/HCPCS: 45380; J2250; J2704; J7120; J3490